=== PATIENT | female | born 1965 | race Two or more races ===

== ENCOUNTER 2016-05-11 17:16 | Inpatient (IN) | payer MEDICARE, MEDICAID ==
[2016-05-11] MEDS ORDERED: NS 0.9% 1000 ML* 2,000 ML IV ONE (17:29)
[2016-05-11] MEDS ORDERED: Ondansetron INJ* 2 MG/ML VIAL IV ONE (17:29)
--- NOTE | 2016-05-11 17:47 | RAD ---
INDICATION: Syncope COMPARISON: July 24, 2014 TECHNIQUE: An AP portable view obtained at 1730 hours is submitted. FINDINGS: Bones/Soft Tissues: There are no acute bony findings. Cardiomediastinal: The cardiomediastinal silhouette is normal. Lungs: There are no infiltrates. Pleura: There are no pleural effusions. Other: None IMPRESSION: NO ACTIVE DISEASE.
[2016-05-11 19:04] LABS: ALT 18 U/L (7-52); Albumin 3.4 g/dL (3.2-5.2); Alkaline Phosphatase 87 U/L (34-104); BUN/Creatinine Ratio 17.6 (8-20); Blood Urea Nitrogen 24 mg/dL (6-24); C Reactive Protein 280.57 mg/L (< 5.00); CO2 Carbon Dioxide 18 mmol/L (22-32); Calcium 8.5 mg/dL (8.6-10.3); Chloride 97 mmol/L (101-111); Creatine Kinase 82 U/L (10-223); EGFR African American 52.5 (>60); EGFR Non-African American 40.8 (>60); Globulin 3.7 g/dL (2-4); Glucose 134 mg/dL (70-100); Lipase < 10 U/L (11.0-82.0); Sodium 128 mmol/L (133-145); Total Protein 7.1 g/dL (6.4-8.9)
[2016-05-11 19:13] LABS: Hematocrit 40 % (35-47); Hemoglobin 12.8 g/dl (12.0-16.0); Mean Corpuscular HGB Conc 32 g/dl (31-36); Mean Corpuscular Hemoglobin 25 pg (27-31); Mean Corpuscular Volume 78 fL (80-97); Mean Platelet Volume 10 um3 (7.4-10.4); Red Cell Distribution Width 16 % (10.5-15); White Blood Count 19.1 10^3/ul (3.5-10.8)
[2016-05-11 19:16] LABS: Troponin I 0.46 ng/mL (<0.04)
[2016-05-11] MEDS ORDERED: Aspirin Low Dose CHEW TAB* 81 MG PO ONE (19:20)
[2016-05-11 19:27] LABS: Magnesium 1.9 mg/dL (1.9-2.7)
[2016-05-11 19:29] LABS: TSH (Thyroid Stimulating Horm) 3.29 mcIU/mL (0.34-5.60)
[2016-05-11] MEDS ORDERED: Ciprofloxacin 400MG IVPREMIX(* 400 MG/200 ML BAG IVPB ONE (19:53)
[2016-05-11] MEDS ORDERED: metroNIDAZOLE IV 500 MG/100ML* 500 MG/100 ML BAG IVPB ONE (19:53)
--- NOTE | 2016-05-11 19:58 | HP ---
H&P (Free Text) History and Physical: PCP: Leslie Helm MD Date/Time of Evaluation: 05/11/20161944 CC: N/V, dysuria, & urinary incontinence HPI: Mrs Gr is a 50YO female HX villanueva villanueva, CVA, & HTN presenting with malaise and fatigue starting either or Thursday and progressing to include N/V, watery diarrhea, subjective F/C, rigors, sweats, dysuria, frequency , urgency, & L-sided abdominal/flank pain. She denies cough, chest pain, SOB, HX urolithiasis, black/bloody stools, or other issues. Evaluation is notable for sepsis (tachycardia, leukocytosis, & ANGELLA) 2nd suspected urinary source (UA pending). Will obtain CT abd/pel W to r/o obstructive uropathy and arrange admission for IVFs, IV ABX, CXs, and close monitoring. CT reported as mild L renal obstructive findings. Case reviewed with Andrew Lane MD urology who after reviewing the films does not feel the patient needs a stent. He recommends admission and treatment for pyelonephritis and obtaining a renal and bladder US in the AM. He will not be formally consulted unless the US in the AM DOES NOT show a L ureteral jet or some other urologic concern. PMedHx HTN HX CVA villanueva villanueva HX heart murmur mild speech impediment mildly decreased cognitive function Allergies Azithromycin Allergy (Mild, Verified 03/25/16 11:41) Rash Celecoxib [From Celebrex] Allergy (Mild, Verified 03/25/16 11:41) Rash Ambulatory Orders Albuterol HFA INHALER* [Ventolin HFA Inhaler*] 2 puff INH Q4H PRN 07/24/14 Aspirin TAB* 325 mg PO DAILY 07/24/14 Cholecalciferol [Vitamin D3] 1,000 units PO DAILY 07/24/14 Cyanocobalamin TAB* [Vitamin B12 TAB*] 1,000 mcg PO DAILY 07/24/14 Losartan Potassium 100 mg PO DAILY 07/24/14 Probiotic Product [Align] 4 mg PO DAILY 07/24/14 Amlodipine Besylate 2.5 mg PO DAILY 05/11/16 Amlodipine Besylate [Norvasc-] 10 mg PO DAILY 05/11/16 Montelukast Sodium TAB* [Singulair 10 MG TAB*] 10 mg PO BEDTIME PRN 05/11/16 PSurgHx cerebral stenting done at [place] section x2 SocHx: former smoker w/ ~20PYHX, no alcohol or recreational drugs; , lives alone, 2 adult children live locally; on disability; full code status FamHx: Father passed in his 60s of CAD. Mother passed in her 60s of stomach CA. ROS: as above, otherwise reviewed and all were negative Constitutional: NAD, normally developed, morbidly obese white female vitals: Vital Signs Temp 37.6 C 05/11/16 17:17 Pulse 116 05/11/16 17:17 Resp 20 05/11/16 17:17 BP 115/56 05/11/16 17:17 Pulse Ox 97 05/11/16 17:17 Intake & Output 05/10/16 05/11/16 05/11/16 23:59 11:59 23:59 Weight 116.573 kg HEENM: atraumatic; sclera/conjunctiva: non-icteric/clear; hearing: clinically intact; oropharynx: clear, mucosa tacky Neck: soft tissue: no nuchal rigidity; thyroid: normal Pulmonary: scant end-inspiratory wheeze B, good to fair aeration, no accessory muscle use CV: TR/TR, normal S1S2, 2/6 decreshendo murmur best heard and inferior L sternal border, B carotid bruit, no jugular venous distention, 2+ B DP/PT, no edema Abdominal: soft, non-distended, mild to moderate L lateral abdominal tenderness , no rebound/guarding/rigidity, normoactive bowel sounds, no hepatosplenomegaly or masses, mild L costovertebral angle tenderness Musculoskeletal: general: grossly intact; gait: stable Integumental: normal appearance and texture Psychiatric orientation: AA&O to PPS affect: calm mood: cooperative eye contact: fair content: seemingly reliable responses: timely insight: fair Testing: Lab Results 05/11/16 05/11/16 05/11/16 Range/Units 18:30 18:38 18:57 WBC (3.5-10.8) 10^3/ul RBC (4.0-5.4) 10^6/ul Hgb (12.0-16.0) g/dl Hct (35-47) % MCV (80-97) fL MCH (27-31) pg MCHC (31-36) g/dl RDW (10.5-15) % Plt Count (150-450) 10^3/ul MPV (7.4-10.4) um3 Neut % (Auto) (38-83) % Lymph % (Auto) (25-47) % [place] % (Auto) (1-9) % Eos % (Auto) (0-6) % Baso % (Auto) (0-2) % Absolute Neuts (auto) (1.5-7.7) 10^3/ul Absolute Lymphs (auto) (1.0-4.8) 10^3/ul Absolute Monos (auto) (0-0.8) 10^3/ul Absolute Eos (auto) (0-0.6) 10^3/ul Absolute Basos (auto) (0-0.2) 10^3/ul Absolute Nucleated RBC 10^3/ul Nucleated RBC % INR (Anticoag Therapy) 1.25 H (0.89-1.11) Sodium 128 L (133-145) mmol/L Potassium TNP Chloride 97 L (101-111) mmol/L Carbon Dioxide 18 L (22-32) mmol/L Anion Gap TNP BUN 24 (6-24) mg/dL Creatinine 1.36 H (0.51-0.95) mg/dL Est GFR ( Amer) 52.5 (>60) Est GFR (Non-Af Amer) 40.8 (>60) BUN/Creatinine Ratio 17.6 (8-20) Glucose 134 H (70-100) mg/dL Lactic Acid (0.5-2.0) mmol/L Calcium 8.5 L (8.6-10.3) mg/dL Magnesium TNP Total Bilirubin 0.80 (0.2-1.0) mg/dL AST TNP ALT 18 (7-52) U/L Alkaline Phosphatase 87 (34-104) U/L Total Creatine Kinase 82 (10-223) U/L CK-MB (CK-2) 22.0 H (0.6-6.3) ng/mL Troponin I 0.46 H* (<0.04) ng/mL C-Reactive Protein 280.57 H (< 5.00) mg/L Total Protein 7.1 (6.4-8.9) g/dL Albumin 3.4 (3.2-5.2) g/dL Globulin 3.7 (2-4) g/dL Albumin/Globulin Ratio 0.9 L (1-3) Lipase < 10 L (11.0-82.0) U/L TSH 3.29 (0.34-5.60) mcIU/mL Influenza A (Rapid) Negative (Negative) Influenza B (Rapid) Negative (Negative) 05/11/16 05/11/16 05/11/16 Range/Units 18:57 18:57 18:57 WBC 19.1 H (3.5-10.8) 10^3/ul RBC 5.20 (4.0-5.4) 10^6/ul Hgb 12.8 (12.0-16.0) g/dl Hct 40 (35-47) % MCV 78 L (80-97) fL MCH 25 L (27-31) pg MCHC 32 (31-36) g/dl RDW 16 H (10.5-15) % Plt Count 212 (150-450) 10^3/ul MPV 10 (7.4-10.4) um3 Neut % (Auto) 88.2 H (38-83) % Lymph % (Auto) 6.1 L (25-47) % [place] % (Auto) 5.4 (1-9) % Eos % (Auto) 0 (0-6) % Baso % (Auto) 0.3 (0-2) % Absolute Neuts (auto) 16.8 H (1.5-7.7) 10^3/ul Absolute Lymphs (auto) 1.2 (1.0-4.8) 10^3/ul Absolute Monos (auto) 1.0 H (0-0.8) 10^3/ul Absolute Eos (auto) 0 (0-0.6) 10^3/ul Absolute Basos (auto) 0.1 (0-0.2) 10^3/ul Absolute Nucleated RBC 0.01 10^3/ul Nucleated RBC % 0.1 INR (Anticoag Therapy) (0.89-1.11) Sodium (133-145) mmol/L Potassium 3.3 L Chloride (101-111) mmol/L Carbon Dioxide (22-32) mmol/L Anion Gap BUN (6-24) mg/dL Creatinine (0.51-0.95) mg/dL Est GFR ( Amer) (>60) Est GFR (Non-Af Amer) (>60) BUN/Creatinine Ratio (8-20) Glucose (70-100) mg/dL Lactic Acid 1.6 (0.5-2.0) mmol/L Calcium (8.6-10.3) mg/dL Magnesium 1.9 Total Bilirubin (0.2-1.0) mg/dL AST 16 ALT (7-52) U/L Alkaline Phosphatase (34-104) U/L Total Creatine Kinase (10-223) U/L CK-MB (CK-2) (0.6-6.3) ng/mL Troponin I (<0.04) ng/mL C-Reactive Protein (< 5.00) mg/L Total Protein (6.4-8.9) g/dL Albumin (3.2-5.2) g/dL Globulin (2-4) g/dL Albumin/Globulin Ratio (1-3) Lipase (11.0-82.0) U/L TSH (0.34-5.60) mcIU/mL Influenza A (Rapid) (Negative) Influenza B (Rapid) (Negative) ECG, personally reviewed: sinus tachycardia rate 111, V4-6/I/II with ST depression & T-wave inversion similar to comparison 2014 CXR, personally reviewed: IMPRESSION: NO ACTIVE DISEASE. CT abd/pel W, personally reviewed: IMPRESSION: 1. Cholelithiasis, unchanged. No CT of acute cholecystitis. 2. Mild obstructive findings on the left without evidence of calcified urolithiasis. Consider radiolucent calculus or recent passage of a calculus. Consider pyelonephritis given the mildly heterogeneous nephrogram. These imaging findings require correlation with clinical and laboratory findings. 3. 3 cm left adnexal cyst, unchanged Impression: 50F presenting with sepsis likely 2nd urinary source (UA pending) DIAGNOSIS & PLAN Primary sepsis (tachycardia, leukocytosis, ANGELLA) 2nd L pyelonephritis : awaiting UA results : ciprofloxacin/metronidazole given in ED, none further : IV ceftriaxone : IVFs : blood & urine CXs : obtain CT abd/pel to r/o obstructive uropathy : call S Domingo MD in AM if renal & bladder US shows no L jet or other urologic concern : supplemental oxygen : supportive care NSTEMI, suspect 2nd demand ischemia : telemetry : aspirin : hold beta ney in setting of sepsis : trend troponin : supplemental oxygen : supportive care ANGELLA : likely mixed hypovolemia & ATN : taylor to gravity for accurate monitoring of renal function in septic patient : IVFs, trend hypoNatremia & hypoKalemia : IVFs for Na, replete K, trend : hold losartan in setting of ANGELLA end-expiratory wheeze w/ smoking HX, suspect undiagnosed COPD in mild exacerbation : albuterol nebs : mometasone/formoterol : tiotropium : incentive spirometry Secondary HTN : hold amlodipine & losartan in setting of sepsis HX CVA : continue aspirin villanueva villanueva : continue aspirin Admission Rational: inpatient for management of sepsis via IVFs & IV ABX, inappropriate/unsafe for outpatient management DVTp: SCDs, heparin SQ Code Status: full HCP: son, Gurinder Gr
[2016-05-11] MEDS ORDERED: Iodixanol* (CONTRAST) 320 MG/ML 100 ML SDV IV ONE (20:36)
[2016-05-11] MEDS ORDERED: Albuterol 2.5 MG/3 ML NEB.SOL* (0.083%) INH PRN (20:42)
[2016-05-11] MEDS ORDERED: CMCS Melatonin (NF) 3 MG TAB PO PRN (20:43)
[2016-05-11 20:44] LABS: Urine Bacteria Absent (Absent); Urine Bilirubin Negative (Negative); Urine Glucose Negative (Negative); Urine Nitrite Negative (Negative)
--- NOTE | 2016-05-11 21:14 | ED ---
Sonya Lee Michael, scribed for Raffi Gonzalez MD on 05/11/16 at 1735 . GI/ HPI - HPI Summary HPI Summary: 50 y/o female comes to the ED presenting with n/v/d for the past three days. 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 Her daughter was bedside and reports that the pt has had multiple vomiting and diarrhea episodes in the last 3 days. She also c/o epigastric abd pain that is aggravated by vomiting. The daughter notes the pt is febrile with chills, myalgia, and one syncopal episode this afternoon. Currently at the ED, the pt's temperature is 99.7. - History of Current Complaint Chief Complaint: EDNauseaVomitDiarrh Time Seen by Provider: 05/11/16 17:25 Stated Complaint: VOMITTING/POSS SNYCOPE/FEVER Hx Obtained From: Patient, Family/Manager Child, Medical Records Pain Intensity: 5 - Allergy/Home Medications Allergies/Adverse Reactions: Allergies Allergy/AdvReac Type Severity Reaction Status Date / Time Azithromycin Allergy Mild Rash Verified 03/25/16 11:41 Celecoxib [From Celebrex] Allergy Mild Rash Verified 03/25/16 11:41 PMH/Surg Hx/FS Hx/Imm Hx Endocrine/Hematology History: Denies: Hx Diabetes Cardiovascular History: Reports: Hx Angina, Hx Hypertension, Other Cardiovascular Problems/Disorders - hypertension Denies: Hx Congestive Heart Failure, Hx Pacemaker/ICD Respiratory History: Reports: Hx Asthma, Hx Chronic Obstructive Pulmonary Disease (COPD) History: Denies: Hx Renal Disease Sensory History: Reports: Hx Contacts or Glasses Denies: Hx Hearing Aid Opthamlomology History: Reports: Hx Contacts or Glasses Neurological History: 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 x2 Infectious Disease History: No Infectious Disease History: Denies: Traveled Outside the [place] in Last 30 Days - Family History Known Family History: Positive: Cardiac Disease - Social History Occupation: Disabled Lives: Alone Alcohol Use: Rare Substance Use Type: Reports: None Smoking Status (MU): Former Smoker Type: Cigarettes Have You Smoked in the Last Year: Yes Review of Systems Positive: Fever, Chills Positive: Abdominal Pain, Vomiting, Diarrhea, Nausea Positive: Myalgia Positive: Syncope All Other Systems Reviewed And Are Negative: Yes Physical Exam Triage Information Reviewed: Yes Vital Signs On Initial Exam: Initial Vitals Temp Pulse Resp BP Pulse Ox 99.7 F 116 20 115/56 97 05/11/16 17:17 05/11/16 17:17 05/11/16 17:17 05/11/16 17:17 05/11/16 17:17 Vital Signs Reviewed: Yes Appearance: Positive: No Pain Distress, Ill-Appearing - moderate Skin: Positive: Warm, Skin Color Reflects Adequate Perfusion, Dry Head/Face: Positive: Normal Head/Face Inspection Eyes: Positive: EOMI, JANET ENT: Positive: Other - dry oral mucosa Respiratory/Lung Sounds: Positive: Clear to Auscultation, Breath Sounds Present Cardiovascular: Positive: Tachycardia Abdomen Description: Positive: Soft. Negative: Nontender - tender epigastric Bowel Sounds: Positive: Present Musculoskeletal: Positive: Normal, Strength/ROM Intact Neurological: Positive: Normal, Sensory/Motor Intact, Alert, Oriented to Person Place, Time Psychiatric: Positive: Affect/Mood Appropriate Diagnostics - Vital Signs Vital Signs Temp Pulse Resp BP Pulse Ox 05/11/16 17:17 99.7 F 116 20 115/56 97 - Laboratory Lab Results: Lab Results 05/11/16 05/11/16 05/11/16 Range/Units 18:30 18:38 18:57 WBC (3.5-10.8) 10^3/ul RBC (4.0-5.4) 10^6/ul Hgb (12.0-16.0) g/dl Hct (35-47) % MCV (80-97) fL MCH (27-31) pg MCHC (31-36) g/dl RDW (10.5-15) % Plt Count (150-450) 10^3/ul MPV (7.4-10.4) um3 Neut % (Auto) (38-83) % Lymph % (Auto) (25-47) % [place] % (Auto) (1-9) % Eos % (Auto) (0-6) % Baso % (Auto) (0-2) % Absolute Neuts (auto) (1.5-7.7) 10^3/ul Absolute Lymphs (auto) (1.0-4.8) 10^3/ul Absolute Monos (auto) (0-0.8) 10^3/ul Absolute Eos (auto) (0-0.6) 10^3/ul Absolute Basos (auto) (0-0.2) 10^3/ul Absolute Nucleated RBC 10^3/ul Nucleated RBC % INR (Anticoag Therapy) 1.25 H (0.89-1.11) Sodium 128 L (133-145) mmol/L Potassium TNP Chloride 97 L (101-111) mmol/L Carbon Dioxide 18 L (22-32) mmol/L Anion Gap TNP BUN 24 (6-24) mg/dL Creatinine 1.36 H (0.51-0.95) mg/dL Est GFR ( Amer) 52.5 (>60) Est GFR (Non-Af Amer) 40.8 (>60) BUN/Creatinine Ratio 17.6 (8-20) Glucose 134 H (70-100) mg/dL Lactic Acid (0.5-2.0) mmol/L Calcium 8.5 L (8.6-10.3) mg/dL Magnesium TNP Total Bilirubin 0.80 (0.2-1.0) mg/dL AST TNP ALT 18 (7-52) U/L Alkaline Phosphatase 87 (34-104) U/L Total Creatine Kinase 82 (10-223) U/L CK-MB (CK-2) 22.0 H (0.6-6.3) ng/mL Troponin I 0.46 H* (<0.04) ng/mL C-Reactive Protein 280.57 H (< 5.00) mg/L Total Protein 7.1 (6.4-8.9) g/dL Albumin 3.4 (3.2-5.2) g/dL Globulin 3.7 (2-4) g/dL Albumin/Globulin Ratio 0.9 L (1-3) Lipase < 10 L (11.0-82.0) U/L TSH 3.29 (0.34-5.60) mcIU/mL Urine Color Urine Appearance Urine pH (5-9) Ur Specific [place] (1.010-1.030) Urine Protein (Negative) Urine Ketones (Negative) Urine Blood (Negative) Urine Nitrate (Negative) Urine Bilirubin (Negative) Urine Urobilinogen (Negative) Ur Leukocyte Esterase (Negative) Urine WBC (Auto) (Absent) Urine RBC (Auto) (Absent) Ur Squamous Epith Cells (Absent) Urine Bacteria (Absent) Urine Glucose (Negative) Influenza A (Rapid) Negative (Negative) Influenza B (Rapid) Negative (Negative) 05/11/16 05/11/16 05/11/16 Range/Units 18:57 18:57 18:57 WBC 19.1 H (3.5-10.8) 10^3/ul RBC 5.20 (4.0-5.4) 10^6/ul Hgb 12.8 (12.0-16.0) g/dl Hct 40 (35-47) % MCV 78 L (80-97) fL MCH 25 L (27-31) pg MCHC 32 (31-36) g/dl RDW 16 H (10.5-15) % Plt Count 212 (150-450) 10^3/ul MPV 10 (7.4-10.4) um3 Neut % (Auto) 88.2 H (38-83) % Lymph % (Auto) 6.1 L (25-47) % [place] % (Auto) 5.4 (1-9) % Eos % (Auto) 0 (0-6) % Baso % (Auto) 0.3 (0-2) % Absolute Neuts (auto) 16.8 H (1.5-7.7) 10^3/ul Absolute Lymphs (auto) 1.2 (1.0-4.8) 10^3/ul Absolute Monos (auto) 1.0 H (0-0.8) 10^3/ul Absolute Eos (auto) 0 (0-0.6) 10^3/ul Absolute Basos (auto) 0.1 (0-0.2) 10^3/ul Absolute Nucleated RBC 0.01 10^3/ul Nucleated RBC % 0.1 INR (Anticoag Therapy) (0.89-1.11) Sodium (133-145) mmol/L Potassium 3.3 L Chloride (101-111) mmol/L Carbon Dioxide (22-32) mmol/L Anion Gap BUN (6-24) mg/dL Creatinine (0.51-0.95) mg/dL Est GFR ( Amer) (>60) Est GFR (Non-Af Amer) (>60) BUN/Creatinine Ratio (8-20) Glucose (70-100) mg/dL Lactic Acid 1.6 (0.5-2.0) mmol/L Calcium (8.6-10.3) mg/dL Magnesium 1.9 Total Bilirubin (0.2-1.0) mg/dL AST 16 ALT (7-52) U/L Alkaline Phosphatase (34-104) U/L Total Creatine Kinase (10-223) U/L CK-MB (CK-2) (0.6-6.3) ng/mL Troponin I (<0.04) ng/mL C-Reactive Protein (< 5.00) mg/L Total Protein (6.4-8.9) g/dL Albumin (3.2-5.2) g/dL Globulin (2-4) g/dL Albumin/Globulin Ratio (1-3) Lipase (11.0-82.0) U/L TSH (0.34-5.60) mcIU/mL Urine Color Urine Appearance Urine pH (5-9) Ur Specific [place] (1.010-1.030) Urine Protein (Negative) Urine Ketones (Negative) Urine Blood (Negative) Urine Nitrate (Negative) Urine Bilirubin (Negative) Urine Urobilinogen (Negative) Ur Leukocyte Esterase (Negative) Urine WBC (Auto) (Absent) Urine RBC (Auto) (Absent) Ur Squamous Epith Cells (Absent) Urine Bacteria (Absent) Urine Glucose (Negative) Influenza A (Rapid) (Negative) Influenza B (Rapid) (Negative) 05/11/16 Range/Units 20:25 WBC (3.5-10.8) 10^3/ul RBC (4.0-5.4) 10^6/ul Hgb (12.0-16.0) g/dl Hct (35-47) % MCV (80-97) fL MCH (27-31) pg MCHC (31-36) g/dl RDW (10.5-15) % Plt Count (150-450) 10^3/ul MPV (7.4-10.4) um3 Neut % (Auto) (38-83) % Lymph % (Auto) (25-47) % [place] % (Auto) (1-9) % Eos % (Auto) (0-6) % Baso % (Auto) (0-2) % Absolute Neuts (auto) (1.5-7.7) 10^3/ul Absolute Lymphs (auto) (1.0-4.8) 10^3/ul Absolute Monos (auto) (0-0.8) 10^3/ul Absolute Eos (auto) (0-0.6) 10^3/ul Absolute Basos (auto) (0-0.2) 10^3/ul Absolute Nucleated RBC 10^3/ul Nucleated RBC % INR (Anticoag Therapy) (0.89-1.11) Sodium (133-145) mmol/L Potassium Chloride (101-111) mmol/L Carbon Dioxide (22-32) mmol/L Anion Gap BUN (6-24) mg/dL Creatinine (0.51-0.95) mg/dL Est GFR ( Amer) (>60) Est GFR (Non-Af Amer) (>60) BUN/Creatinine Ratio (8-20) Glucose (70-100) mg/dL Lactic Acid (0.5-2.0) mmol/L Calcium (8.6-10.3) mg/dL Magnesium Total Bilirubin (0.2-1.0) mg/dL AST ALT (7-52) U/L Alkaline Phosphatase (34-104) U/L Total Creatine Kinase (10-223) U/L CK-MB (CK-2) (0.6-6.3) ng/mL Troponin I (<0.04) ng/mL C-Reactive Protein (< 5.00) mg/L Total Protein (6.4-8.9) g/dL Albumin (3.2-5.2) g/dL Globulin (2-4) g/dL Albumin/Globulin Ratio (1-3) Lipase (11.0-82.0) U/L TSH (0.34-5.60) mcIU/mL Urine Color Yesy Urine Appearance Cloudy Urine pH 5.0 (5-9) Ur Specific [place] 1.016 (1.010-1.030) Urine Protein 2+(100 mg/dl) H (Negative) Urine Ketones Negative (Negative) Urine Blood 2+ H (Negative) Urine Nitrate Negative (Negative) Urine Bilirubin Negative (Negative) Urine Urobilinogen Negative (Negative) Ur Leukocyte Esterase 3+ H (Negative) Urine WBC (Auto) 3+(>20/hpf) H (Absent) Urine RBC (Auto) 2+(6-10/hpf) H (Absent) Ur Squamous Epith Cells Present H (Absent) Urine Bacteria Absent (Absent) Urine Glucose Negative (Negative) Influenza A (Rapid) (Negative) Influenza B (Rapid) (Negative) Result Diagrams: 05/11/16 18:57 05/11/16 18:57 Lab Statement: Any lab studies that have been ordered have been reviewed, and results considered in the medical decision making process. - Radiology CXR Xray Interpretation: No Acute Changes Radiology Interpretation Completed By: Radiologist - EKG EK EKG Rhythm: Sinus Tachycardia - 111 bpm EKG Interpretation: LVH w/ secondary repolarization abnormality. depression in St lateral leads EKG Comparison: No Significant Change - compared to 07/25/14 GIGU Course/Dx - Course Course Of Treatment: Pt will be admitted to [facility]. Welch at 1915 Assessment/Plan: ABD CT PENDING AT SHIFT CHANGE. CIPRO/FLAGYL GIVEN IV. ADMIT HOSPITALIST STABLE. - Diagnoses Provider Diagnoses: UTI (urinary tract infection), Abdominal pain, Elevated troponin, Vomiting and diarrhea Discharge - Discharge Plan Condition: Stable Disposition: ADMITTED TO [facility] Discharge Disposition Comment: accepted as admission to [facility] [place] Welch Referrals: Jeri Helm MD [Primary Care Provider] - The documentation as recorded by the Sonya suarez Michael accurately reflects the service I personally performed and the decisions made by me, Raffi Gonzalez MD.
[2016-05-11] MEDS ORDERED: Montelukast Sodium TAB* 10 MG PO PRN (21:22)
--- NOTE | 2016-05-11 22:24 | RAD ---
INDICATION: Abdominal pain COMPARISON: CT abdomen pelvis June 24, 2011 TECHNIQUE: Axial source images were obtained from the hemidiaphragms to the symphysis pubis following administration of oral and intravenous contrast. 135 mL Visipaque 320 was utilized. Coronal and sagittal reconstructed images were acquired. Lung bases: The lung bases are clear. Liver: The liver is normal in size. There are no masses. There is no ductal dilatation. Gallbladder: There is cholelithiasis. Spleen: The spleen is normal in size. There are no masses. Pancreas: There is no focal pancreatic mass or ductal dilatation. Adrenal glands: There is no evidence of adrenal mass. Kidneys: The right kidney is unremarkable. There is a mildly delayed nephrogram on the left and there is mild hydronephrosis and hydroureter. The nephrogram appears mildly heterogeneous and there is mild left-sided perinephric stranding. There is no evidence of urolithiasis. Adenopathy: There is no evidence of adenopathy by size criteria. Fluid collections: There are no free or localized fluid collections. Vessels:There are no significant atherosclerotic changes involving the aorta. There is no focal aneurysm. The iliac vessels are normal in caliber. The IVC appears normal. GI tract: There are no acute CT bowel findings. There is no obstruction. The stomach and small bowel appear normal. The lower GI tract is normal. The cecum, ileocecal valve, and terminal ileum appear normal. The appendix is visualized and appear normal. Pelvic organs: The uterus and right adnexa are normal. There is a 3 cm left adnexal cyst, unchanged Bladder: There are no bladder masses. Abdominal and pelvic soft tissues: The extraperitoneal abdominal and pelvic soft tissues appear normal.. Osseous structures: There are no acute osseous findings. Other: None IMPRESSION: 1. Cholelithiasis, unchanged. No CT of acute cholecystitis. 2. Mild obstructive findings on the left without evidence of calcified urolithiasis. Consider radiolucent calculus or recent passage of a calculus. Consider pyelonephritis given the mildly heterogeneous nephrogram. These imaging findings require correlation with clinical and laboratory findings. 3. 3 cm left adnexal cyst, unchanged
[2016-05-11] MEDS: Docusate CAP* 100 MG PO SCH (22:59)
[2016-05-12] MEDS ORDERED: Acetaminophen TAB* 325 MG ONE (00:52)
[2016-05-12] MEDS ORDERED: Ondansetron INJ* 2 MG/ML VIAL ONE (00:58)
[2016-05-12] MEDS ORDERED: cefTRIAXone VIAL(*) 1,000 MG in NS 0.9% 50 ML* 50 ML IVPB SCH (01:00)
[2016-05-12] MEDS: NS 0.9% 1000 ML* 1,000 ML IV SCH ×3 (01:24→21:58)
[2016-05-12] MEDS: traMADol TAB* 50 MG PO PRN ×3 (02:06→21:01)
[2016-05-12 02:13] LABS: Troponin I 0.39 ng/mL (<0.04)
[2016-05-12] MEDS: Heparin VIAL(*) 5000 UNITS/ML VIAL (FIVE THOUSAND) SUBCUT SCH ×3 (05:45→21:57)
[2016-05-12] MEDS ORDERED: Omeprazole CAP* 20 MG PO SCH (06:00)
[2016-05-12 06:41] LABS: Troponin I 0.25 ng/mL (<0.04)
[2016-05-12 08:23] LABS: Hematocrit 33 % (35-47); Hemoglobin 10.7 g/dl (12.0-16.0); Mean Corpuscular HGB Conc 32 g/dl (31-36); Mean Corpuscular Hemoglobin 25 pg (27-31); Mean Corpuscular Volume 78 fL (80-97); Mean Platelet Volume 11 um3 (7.4-10.4); Red Blood Count 4.25 10^6/ul (4.0-5.4); Red Cell Distribution Width 16 % (10.5-15); White Blood Count 18.1 10^3/ul (3.5-10.8)
[2016-05-12 08:32] LABS: BUN/Creatinine Ratio 18.4 (8-20); Calcium 8.1 mg/dL (8.6-10.3); EGFR African American 50.4 (>60); EGFR Non-African American 39.2 (>60); Potassium 3.3 mmol/L (3.5-5.0)
[2016-05-12] MEDS: Docusate CAP* 100 MG PO SCH ×2 (08:39→20:12)
[2016-05-12] MEDS: Aspirin TAB* 325 MG PO SCH (08:46)
[2016-05-12] MEDS: metroNIDAZOLE TAB* 250 MG PO SCH ×3 (09:58→20:50)
--- NOTE | 2016-05-12 13:06 | RAD ---
Indication: Left pyelonephritis versus left obstruction. Real-time sonography of the kidneys was performed. Evaluation of the urinary bladder was also performed. Correlation is made with previous CT dated May 11, 2016. The right kidney measures 12.9 x 5.5 x 5.6 cm with no hydronephrosis. The left kidney measures 13.8 x 6.7 x 6.5 cm. There is fullness of the left renal collecting system. Evaluation of the urinary bladder demonstrates bilateral ureteral jets. IMPRESSION: Bilateral ureteral jets are identified. The left kidney appears to be enlarged relative to the right.
--- NOTE | 2016-05-12 14:22 | PN ---
Subjective Date of Service: 05/12/16 Interval History: HOSPITALIST PROGRESS NOTE Patient seen and examined at bedside. She feels a little better today. Left flank pain is improved, denies N/V, diarrhea still present. Family History: Unchanged from Admission Social History: Unchanged from Admission Past Medical History: Unchanged from Admission Objective Active Medications: Acetaminophen (Tylenol Tab*) 650 mg PO Q6H PRN PRN Reason: FEVER/PAIN Albuterol (Ventolin 2.5 Mg/3 Ml Neb.Kayy*) 2.5 mg INH Q2H PRN PRN Reason: SOB/WHEEZING Aspirin (Aspirin Tab*) 325 mg PO DAILY [facility] Last Admin: 05/12/16 08:46 Dose: 325 mg Docusate Sodium (Colace Cap*) 200 mg PO BID [facility] Last Admin: 05/12/16 08:39 Dose: Not Given Heparin Sodium (Porcine) (Heparin Vial(*)) 5,000 units SUBCUT Q8HR [facility] Last Admin: 05/12/16 14:02 Dose: 5,000 units Sodium Chloride (Ns 0.9% 1000 Ml*) 1,000 mls @ 125 mls/hr IV PER RATE [facility] Last Admin: 05/12/16 10:00 Dose: 125 mls/hr Ceftriaxone Sodium 2 gm/ (Sodium Chloride) 100 mls @ 200 mls/hr IVPB Q24H [facility] Last Admin: 05/12/16 14:02 Dose: 200 mls/hr Melatonin (Melatonin (Nf)) 3 mg PO BEDTIME PRN; Protocol PRN Reason: Sleep Metronidazole (Flagyl Tab*) 500 mg PO TID [facility] Last Admin: 05/12/16 14:02 Dose: 500 mg Montelukast Sodium (Singulair Tab*) 10 mg PO BEDTIME PRN PRN Reason: Allergy Symptoms Ondansetron HCl (Zofran Inj*) 4 mg IV Q6H PRN PRN Reason: NAUSEA Tramadol HCl (Ultram*) 50 mg PO Q6H PRN PRN Reason: PAIN Last Admin: 05/12/16 08:46 Dose: 50 mg Vital Signs 05/12/16 05/12/16 05/12/16 08:46 10:46 11:19 Temperature 98.6 F Pulse Rate 94 Respiratory 18 18 20 Rate Blood Pressure 109/57 (mmHg) O2 Sat by Pulse 97 Oximetry Oxygen Devices in Use Now: Nasal Cannula Appearance: Obese middle aged lady lying in bed in NAD. Eyes: No Scleral Icterus Ears/Nose/Mouth/Throat: Mucous Membranes Moist Neck: Trachea Midline Respiratory: Symmetrical Chest Expansion and Respiratory Effort, Clear to Auscultation Cardiovascular: RRR - Normal S1 and S2, +SM Abdominal: - - Obese, soft, NT, BS+ Extremities: No Edema Neurological: Alert and Oriented x 3, - - dysarthria, Lines/Tubes/Other Access: Clean, Dry and Intact Zimmer, Clean, Dry and Intact Peripheral IV Nutrition: Taking PO's Result Diagrams: 05/12/16 05:39 05/12/16 05:39 Assess/Plan/Problems-Billing Assessment: Mrs. De Oliveira is a 50yo F with PMH of HTN, CVA, Moyamoya disease, dysarthria, who presented to ED with c/o N/V/D/and dysuria, found to have sepsis secondary to pyelonephritis and possible C. diff colitis. - Patient Problems (1) Severe sepsis Comment: - Patient met sepsis criteria on admission with fever, tachycardia, tachypnea, and leukocytosis. - qSOFA was 1 on admission (tachypnea). - Source is pyelonephritis. (2) Pyelonephritis Comment: - CT reviewed. - Presentation compatible with left pyelo. - Urine culture growing E. coli. - ID consult requested. - Continue Ceftriaxone. - Renal US showed a left ureteral jet, so no indication for stents at this time. (3) Gram negative septicemia Comment: - Blood cultures growing gram negative bacilli, probably E. coli. - Follow sensitivities and continue Ceftriaxone. - Repeat blood cultures in AM. (4) ANGELLA (acute kidney injury) Comment: - Likely pre-renal in the setting of N/V/D and ATN in the setting of severe sepsis. - Continue IVF and monitor renal function. (5) Diarrhea Comment: - Patient was treated with antibiotics 2 weeks ago for sinus infection and developed explosive diarrhea, suggestive of C. diff. - Start Metronidazole. - Contact precautions. - Stool for C. diff. (6) Elevated troponin Comment: - Suspect demand ischemia in the setting of severe sepsis. - Troponin is trending down. - Patient denies chest pain or pressure. - Cardiology consult requested. - Check echocardiogram. - Continue Aspirin. (7) Hyponatremia Comment: - Trending up. - Continue IVF. (8) Hypokalemia Comment: - Replete. (9) DVT prophylaxis Comment: - SQ heparin. (10) Full code status Status and Disposition: Inpatient. Daughter updated at bedside.
[2016-05-12] MEDS: KCL 10 MEQ/50 ML IVPREMIX* 10 MEQ/50 ML BAG IV SCH ×3 (15:29→20:49)
--- NOTE | 2016-05-12 16:54 | ECHO ---
Patient: NOÉ GROSSMAN [facility] Rec#: [id number] : 1965 Date: 05/12/2016 Age: 50y Height: 157.5 cm / 62.0 in Weight: 120.7 kg / 266.0 lbs Sex: F BSA: 2.16 Room#: [facility] Admit Date#: 05/11/2016 Type: Inpatient Referring: Justyna Bernal MD Reading: Timothy Prince MD Bank Teller: Dee Dee Mccloud RN RDCS CC: Jeri Helm MD Transthoracic Echocardiogram Indication: Elevated troponins, cardiac murmur BP: 122/62 HR: 91 Rhythm: NSR Findings History: HTN, CVA, COPD, former smoker, moyamoya disease Technical Comments: The study is technically limited due to patient body habitus. The study is technically limited due to the patient's history of COPD. The study is technically limited due to the patient's smoking history. Completed at 1630. Left Ventricle: The left ventricular chamber size is normal. Moderate concentric left ventricular hypertrophy is observed. Left ventricular systolic function is at the lower limits of normal. The estimated ejection fraction is 50-55%. There is no consistent Doppler evidence of clinically significant diastolic dysfunction. Left Atrium: The left atrial chamber size is normal. Right Ventricle: The right ventricle is not well visualized. The right ventricular cavity size is normal. The right ventricular global systolic function is mildly reduced. Right Atrium: The right atrial cavity size is normal. Aortic Valve: The aortic valve leaflets are mildly thickened. Systolic excursion of the aortic valve cusps is reduced. There is mild to moderate aortic regurgitation. There is moderate aortic stenosis. The mean gradient of the aortic valve is 27.4 mmHg. The aortic valve area, by peak velocities, is calculated at 1.2 cm2. The aortic valve area, by VTI's, is calculated at 1.3 cm2. Highest aortic valve velocity was acquired with Pedoff in right sternal border position. The measured aortic regurgitation pressure half-time is 370 msec. Mitral Valve: There is mitral annular calcification. The mitral valve leaflets are mildly thickened. There is mild to moderate mitral regurgitation. There is no evidence of mitral stenosis. Tricuspid Valve: The tricuspid valve structure is not well visualized. Pulmonic Valve: The pulmonic valve appears normal. There is mild pulmonic regurgitation. There is no pulmonic stenosis. Pericardium: There is no significant pericardial effusion. A pericardial fat pad is visualized. Aorta: There is no dilatation of the ascending aorta. There is no dilatation of the aortic arch. The aortic root is normal in size. Pulmonary Artery: The main pulmonary artery is not well visualized. Venous: The venous system is not well visualized. The inferior vena cava is not visualized. Conclusions Moderate concentric left ventricular hypertrophy is observed. Left ventricular systolic function is at the lower limits of normal. The estimated ejection fraction is 50-55%. There is no consistent Doppler evidence of clinically significant diastolic dysfunction. The right ventricular global systolic function is mildly reduced. Systolic excursion of the aortic valve cusps is reduced. There is moderate aortic stenosis. The mean gradient of the aortic valve is 27.4 mmHg. The mitral valve leaflets are mildly thickened. There is mild to moderate mitral regurgitation. The tricuspid valve structure is not well visualized. There is no significant pericardial effusion. Compared to study of 07/25/14, the LV frunction is slightly lower. The aortic stenosis was previously mild and is now moderate Measurements Name Value Normal Range IVSd (2D) 1.5 cm (0.6 - 1) LVPWd (2D) 1.5 cm (0.6 - 1) LVIDd (2D) 4.2 cm (3.6 - 5.4) LVIDs (2D) 3.3 cm - LV FS (2D) 22 % (25 - 45) Aortic Annulus 2 cm (1.4 - 2.6) Ao root diameter (2D) 2.3 cm (2.1 - 3.5) Ascending Ao 2.8 cm (2.1 - 3.4) Aortic arch 2.6 cm (1.8 - 3.4) LA dimension (AP) 2D 3.3 cm (2.3 - 3.8) Name Value Normal Range LA ESV SP 4CH (A/L) 28 ml - LA ESV SP 2CH (A/L) 52 ml - LA ESV BP (A/L) 40 ml - LA ESV BP (A/L) index 18.5 ml/m2 - LA ESV SP 4CH (MOD) 28 ml - LA ESV SP 2CH (MOD) 50 ml - Name Value Normal Range MV E-wave Vmax 1.5 m/sec - MV deceleration time 237 msec - MV A-wave Vmax 1.2 m/sec - MV E:A ratio 1.3 ratio - LV septal e' Vmax 0.05 m/sec - LV lateral e' Vmax 0.07 m/sec - LV E:e' septal ratio 30 ratio - LV E:e' lateral ratio 21.4 ratio - Name Value Normal Range AV Vmax 3.5 m/sec - AV VTI 62.7 cm - AV peak gradient 49.3 mmHg - AV mean gradient 27.4 mmHg - LVOT diameter 2 cm - LVOT Vmax 1.3 m/sec - LVOT VTI 26.4 cm - LVOT peak gradient 6.9 mmHg - LVOT mean gradient 4.4 mmHg - DOI (VTI) 0.42 ratio - SLOAN (continuity Vmax) 1.2 cm2 - SLOAN (continuity VTI) 1.3 cm2 - AR PHT 370 msec - Name Value Normal Range MV Vmax 1.7 m/sec - MV VTI 37.8 cm - MV peak gradient 12.2 mmHg - MV mean gradient 5.5 mmHg - MV PHT 69 msec - MVA (PHT) 3.2 cm2 - MVA (continuity VTI) 2.2 cm2 - Name Value Normal Range PV Vmax 1.2 m/sec -
[2016-05-12] MEDS: Ondansetron INJ* 2 MG/ML VIAL IV PRN (17:46)
--- NOTE | 2016-05-12 18:53 | CONS ---
CONSULTATION REPORT: DATE OF CONSULTATION: 05/12/16 REQUESTING PHYSICIAN: Dr. Tenorio. CONSULTING SERVICE: Infectious Disease. REASON FOR CONSULTATION: Bacteremia and flank pain. IMPRESSION: 1. Left flank pain, dysuria. Urinalysis shows blood, leukocyte esterase. CT shows mild obstructive findings of the left ureter without urolithiasis. Differential includes radiolucent calculus or a recent stone passage, which she does not remember passing any stones and then mild heterogeneous nephrogram. Her blood cultures 2/2 bottles with gram-negative bacilli. Overall, I do agree pyelonephritis is likely with possible stone disease. 2. Diarrhea and was on antibiotics 2 weeks ago. Her diarrhea is explosive, cannot make it to the toilet a few times a day. It preceded her fever and left flank and urinary symptoms. I think she likely has C. difficile associated diarrhea, which was community acquired. 3. Positive troponin. Abnormal EKG. 4. Allergy to AZITHROMYCIN. 5. Obesity. 5. Chronic right decubitus ulcer. RECOMMENDATIONS: 1. Agree with ceftriaxone. We will increase to 2 g a day given her weight of 265 pounds and await the blood culture results. She has a kidney ultrasound pending for today. 2. Start Flagyl 500 mg by mouth 3 times a day and add a C. diff PCR. HISTORY OF PRESENT ILLNESS: This is a 50-year-old woman admitted with fever and left flank pain. About 5 days ago, she had the onset of abdominal cramping and 4 to 7 explosive stools a day that she had a hard time making to the toilet. She was on antibiotics 2 weeks prior for sinusitis. A day and a half after her diarrhea started, she developed dysuria, urinary frequency, left flank pain and then fever and shaking chills. She came to the hospital on , white blood cell count 19,000. She had a dose of Cipro and Flagyl. CT results as above. She was changed to ceftriaxone overnight as she had a temperature of 39.1. She had shaking chills and slept last night. This morning , she has chills. She has ongoing left flank and left upper quadrant pain that is worse with movement. Pain medicine has helped. Blood cultures are positive for gram-negative rods. She has a Zimmer catheter that is producing urine. She has not had infections requiring hospitalization in the past. She has had 3 explosive stools this morning. Specimen was just sent for testing. PAST MEDICAL HISTORY: 1. Obesity. 2. Moyamoya. 3. 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 4. History of heart murmur. 5. History of stroke. MEDICATIONS: 1. Tylenol. 2. Albuterol. 3. Aspirin. 4. Docusate. 5. Heparin subcutaneous injection. 6. Melatonin. 7. Singulair. 8. Ceftriaxone 1 g a day. 9. Tramadol. ALLERGIES: 1. AZITHROMYCIN caused rash. 2. CELEBREX caused rash. FAMILY HISTORY: No recurrent infections. SOCIAL HISTORY: She lives in [place]. No sick contacts. No travel. REVIEW OF SYSTEMS: All negative except as noted above. PHYSICAL EXAM: Vital Signs: Temperature is 37, heart rate 80, respiratory rate 20, blood pressure 120/60, and O2 sat 99% on room air. In general: She is awake, not in distress. Neurological: She is oriented x3, follows all commands, moves all extremities. Cranial nerves II through XII are intact. Neck: Neck is supple without nuchal rigidity. HEENT: There is no conjunctival hemorrhage. Oropharynx is dry. There are no lesions. Lymph nodes : There is no palpable or visible lymphadenopathy. Heart: Regular rate and rhythm without murmurs, rubs, or gallops. Lungs: Clear to auscultation bilaterally. Abdomen: Obese. There is left flank tenderness. There is no suprapubic tenderness. There is no rebound. No bowel sounds present. Skin: There is no rash or splinter hemorrhages. Musculoskeletal: There is no spine tenderness to palpation or joint synovitis. DIAGNOSTIC STUDIES/LAB DATA: Creatinine 1.4, troponin 0.25, white blood cell count 18, hemoglobin 10, and platelets 155. Influenza PCR negative. Please see impression and recommendations outlined above. Thanks for asking me to see Ms. Gr in consultation. [id number]/[facility] #: [id number] HYACINTH
[2016-05-12] MEDS ORDERED: KCL 10 MEQ/50 ML IVPREMIX* 10 MEQ/50 ML BAG ONE (20:08)
--- NOTE | 2016-05-12 21:31 | CONS ---
CARDIOLOGY CONSULT NOTE: DATE OF CONSULT: 05/12/16 FAMILY DOCTOR: Jeri Helm MD REASON FOR CONSULT: Asked by the hospitalist service to see the patient with mildly abnormal cardiac enzymes with a total troponin of 0.46 and MB fraction of 22, a total CPK of 82, with trailing off troponins of 0.39 and then 0.25 with an abnormal EKG. HISTORY OF PRESENT ILLNESS: The patient is a 50-year-old female who has a known history of Moyamoya disease, status post a CVA 10 years ago with a speech impediment, and a history of hypertension. She was in her usual state of health until a couple of days prior to admission when she started feeling malaise and fatigue and developed watery diarrhea of significant nature, nausea , vomiting, rigors, and sweats. She also had dysuria, frequency, and urgency, and she had a left upper abdominal flank discomfort. At no point, it should be noted that she did have any chest, throat, jaw, or arm discomfort or shortness of breath. There is no radiation to the arms. She reportedly on the CT scan had a question of a mild left renal obstruction and there was question of whether or not a stent was needed, but this apparently was reviewed with Dr. Lane and he felt that this was not needed. The patient was admitted for further evaluation. Over the course of the hospitalization, the initial troponin was found to be 0.46 with a total CPK of 82 and an MB of 22. Following troponins were 0.39 and 0.25 in followup. Renal function showed an initial BUN and creatinine of 24 and 1.36, repeat at 26 and 1.4. Because of the abnormal cardiac enzymes, we were asked to see her. The patient's cardiac history dates back to an echocardiogram at [facility] back on 12/31/04 for a history of a murmur. At that point in time, all of her valves were felt to be grossly normal. There was mild aortic insufficiency and mild mitral insufficiency. There was preserved right and left ventricular systolic function. It was not optimal due to the patient's significant obesity. The patient then back in 2014 was noted to have an abnormal EKG with LVH strain pattern compared to 2009 and with that EKG, she had an echocardiogram done which reportedly revealed a somewhat technically limited study due to significant obesity and COPD. There was moderate concentric LVH and ejection fraction in excess of 65%. There was impaired relaxation noted. There was trace tricuspid regurgitation, mild aortic regurgitation, [id number] mitral regurgitation. During that hospitalization, she also underwent a Lexiscan stress test which revealed a baseline abnormal EKG , uninterpretable for ischemia. The nuclear images showed an ejection fraction of 60% with stress. There was a question of small perfusion defect to the lateral wall of the left ventricle. It was felt to be a low-risk stress test. Since that time to now when she has been up and about doing things, she is able to do exertional activity without provoking chest, throat, jaw, or arm discomfort. The biggest thing that she did notice with this episode of the diarrhea, the nausea and vomiting was when she got up, she became so lightheaded that she thinks she passed out. She has not had any further symptoms like that since being in the hospital. PAST MEDICAL HISTORY: Includes a history of Moyamoya syndrome. She has a history of a heart murmur, history of a CVA that she states was 10 years ago, history of hypertension, and she states she also has a history of asthma. PAST SURGICAL HISTORY: Includes cerebral stenting done at [place]. Of note, with her Moyamoya syndrome, she is followed by a Dr. Munoz in [facility] in [place], [place]. MEDICATIONS: Her home medications have included: 1. Albuterol inhaler. 2. Aspirin 325. 3. Cholecalciferol. 4. Cyanocobalamin. 5. Losartan 100 mg a day. 6. Amlodipine, a total of 12.5 mg a day. 7. Singulair 10 mg a day. 8. Probiotic. FAMILY HISTORY: Father in the 60s of a heart attack. Mother at 60 of stomach cancer. SOCIAL HISTORY: She used to smoke, but does not any more. She does not abuse alcohol or recreational drugs. She lives alone and has 2 adult children. She is on disability. REVIEW OF SYSTEMS: As per the H and P with no changes. PHYSICAL EXAM: When I saw her reveals a pleasant, well-developed, obese female in no acute distress. Blood pressure 109/57, pulse is 85, respirations 20, O2 saturation 97% on room air, afebrile. Body mass index 48.7. Neck is supple. There is a question of bruit versus transmitted murmur with her in a lying position. Conjunctivae are minimally pale. Sclerae clear. Lungs reveal no accessory muscle usage. Lungs are relatively clear to A and P. Heart reveals no visible heaves, no palpable heaves or thrills. Normal S1. S2 does seem to split physiologically. There is a 2/6 systolic murmur with her lying flat. Abdomen is morbidly obese. There is mild tenderness in the upper left lateral abdominal area. Extremities are heavy in nature bilaterally. Peripheral pulses are intact. Femoral pulses are difficult to appreciate at best given her morbid obesity. Neuro: The patient speaks with a speech impediment, seems to move all extremities appropriately. Psychological: The patient seems of normal affect. DIAGNOSTIC STUDIES/LAB DATA: Laboratory results to date: From today, 05/12/16 , shows sodium 137, potassium 3.3, chloride 99, bicarb 22, BUN and creatinine of 26 and 1.41, glucose 119. Of note, added on tests that I asked for included a total CPK and an MB on the second and third troponin samples of 0.39 and 0.25 respectively. Those values were a total CPK of 76 and an MB of 5.4 and a total CPK of 74 and an MB of 3.6. Lipase is less than 10. Hemoglobin and hematocrit today were 10.7 and 33 with a platelet count of 155,000. White count 18,100. INR was 1.25. Chest x-ray report reveals no active disease. EKG on admission dated 05/11/16, timed 184, revealed sinus tachycardia, heart rate 111, CA interval is 0.13, QRS is 0.09, QT 0.32, axis is +7 degrees. There are suggestive findings of left ventricular hypertrophy with possible strain pattern in the limb leads. There is a hockey-stick configuration with downsloping ST segments in I, aVL, and V5 and V6. Repeat EKG from today, dated 05/12/16, timed 7:25 a.m., reveals a slower rate with less ST-segment changes suggesting the prior ones may have been even rate related. OVERALL ASSESSMENT: Yenni presents now with no clear symptoms of coronary artery ischemia with an abnormal EKG that was present back when a workup revealed no profound ischemia and with a systemic illness process going on. At this point in time, an echocardiogram was ordered and we will await the results of the echocardiogram to look at wall motion. If wall motion is normal and no focal wall motion abnormalities, I would figure that this is more likely a type 2 myocardial infarction from a demand-produced ischemic event rather than any type of ruptured plaque from coronary artery disease. If her LV function is completely normal and if there is significant left ventricular hypertrophy, consideration for low-dose beta ney may be reasonable. I will leave that to your discretion. As always, thank you very much for having us to see her. We will follow her along with you. cc: Dr. Jeri Helm* [id number]/[facility] #: [id number] MTDD
[2016-05-13] MEDS: Acetaminophen TAB* 325 MG PO PRN ×2 (00:57→21:08)
[2016-05-13] MEDS: NS 0.9% 1000 ML* 1,000 ML IV SCH ×2 (04:34→13:02)
[2016-05-13] MEDS: Heparin VIAL(*) 5000 UNITS/ML VIAL (FIVE THOUSAND) SUBCUT SCH ×3 (05:21→21:09)
[2016-05-13 05:26] LABS: Hematocrit 32 % (35-47); Hemoglobin 10.4 g/dl (12.0-16.0); Mean Corpuscular HGB Conc 32 g/dl (31-36); Mean Corpuscular Hemoglobin 25 pg (27-31); Mean Corpuscular Volume 78 fL (80-97); Mean Platelet Volume 10 um3 (7.4-10.4); Red Blood Count 4.16 10^6/ul (4.0-5.4); Red Cell Distribution Width 16 % (10.5-15); White Blood Count 10.3 10^3/ul (3.5-10.8)
[2016-05-13 05:42] LABS: BUN/Creatinine Ratio 17.1 (8-20); C Reactive Protein 264.44 mg/L (< 5.00); EGFR Non-African American 45.9 (>60); Potassium 3.5 mmol/L (3.5-5.0)
[2016-05-13] MEDS: Docusate CAP* 100 MG PO SCH (07:26)
[2016-05-13] MEDS: Aspirin TAB* 325 MG PO SCH (07:58)
[2016-05-13] MEDS: metroNIDAZOLE TAB* 250 MG PO SCH ×2 (07:59→13:02)
--- NOTE | 2016-05-13 13:39 | PN ---
Subjective Date of Service: 05/13/16 Interval History: Pt is feeling poorly. She denies any pain at this time but she states her L flank pain worsens as the day goes on. She continues to have profuse diarrhea. She can not even tell me how many stools she had today. Objective Active Medications: Acetaminophen (Tylenol Tab*) 650 mg PO Q6H PRN PRN Reason: FEVER/PAIN Last Admin: 05/13/16 00:57 Dose: 650 mg Albuterol (Ventolin 2.5 Mg/3 Ml Neb.Kayy*) 2.5 mg INH Q2H PRN PRN Reason: SOB/WHEEZING Aspirin (Aspirin Tab*) 325 mg PO DAILY [facility] Last Admin: 05/13/16 07:58 Dose: 325 mg Docusate Sodium (Colace Cap*) 200 mg PO BID [facility] Last Admin: 05/13/16 07:26 Dose: Not Given Heparin Sodium (Porcine) (Heparin Vial(*)) 5,000 units SUBCUT Q8HR [facility] Last Admin: 05/13/16 13:03 Dose: 5,000 units Sodium Chloride (Ns 0.9% 1000 Ml*) 1,000 mls @ 125 mls/hr IV PER RATE [facility] Last Admin: 05/13/16 13:02 Dose: 125 mls/hr Ceftriaxone Sodium 2 gm/ (Sodium Chloride) 100 mls @ 200 mls/hr IVPB Q24H [facility] Last Admin: 05/13/16 13:02 Dose: 200 mls/hr Melatonin (Melatonin (Nf)) 3 mg PO BEDTIME PRN; Protocol PRN Reason: Sleep Last Admin: 05/12/16 21:57 Dose: 3 mg Metronidazole (Flagyl Tab*) 500 mg PO TID [facility] Last Admin: 05/13/16 13:02 Dose: 500 mg Montelukast Sodium (Singulair Tab*) 10 mg PO BEDTIME PRN PRN Reason: Allergy Symptoms Ondansetron HCl (Zofran Inj*) 4 mg IV Q6H PRN PRN Reason: NAUSEA Last Admin: 05/12/16 17:46 Dose: 4 mg Tramadol HCl (Ultram*) 50 mg PO Q6H PRN PRN Reason: PAIN Last Admin: 05/12/16 21:01 Dose: 50 mg Vital Signs 05/12/16 05/12/16 05/12/16 15:31 20:00 20:15 Temperature 98.2 F 98.7 F Pulse Rate 96 100 101 Respiratory 18 18 20 Rate Blood Pressure 141/56 154/67 (mmHg) O2 Sat by Pulse 99 98 98 Oximetry 05/12/16 05/12/16 05/12/16 21:01 23:01 23:35 Temperature 100.4 F Pulse Rate 100 Respiratory 18 16 20 Rate Blood Pressure 117/38 (mmHg) O2 Sat by Pulse 93 Oximetry 05/13/16 05/13/16 05/13/16 00:00 01:03 02:59 Temperature 101.8 F 99.1 F Pulse Rate Respiratory Rate Blood Pressure (mmHg) O2 Sat by Pulse 93 Oximetry 05/13/16 05/13/16 05/13/16 03:29 07:24 07:42 Temperature 97.4 F 98.3 F Pulse Rate 83 96 Respiratory 16 18 18 Rate Blood Pressure 124/59 149/65 (mmHg) O2 Sat by Pulse 96 98 Oximetry 05/13/16 05/13/16 11:05 11:32 Temperature 98.8 F Pulse Rate 92 85 Respiratory 18 22 Rate Blood Pressure 132/58 (mmHg) O2 Sat by Pulse 98 96 Oximetry Oxygen Devices in Use Now: Nasal Cannula Appearance: Middle aged morbidly obese female lying in bed, NAD Eyes: No Scleral Icterus Ears/Nose/Mouth/Throat: Mucous Membranes Moist Respiratory: Symmetrical Chest Expansion and Respiratory Effort, Clear to Auscultation Cardiovascular: NL Sounds; No Murmurs; No JVD, RRR, No Edema Abdominal: - - BS+ soft, ND, mildly tender to palpation Extremities: No Clubbing, Cyanosis Skin: No Rash or Ulcers, No Nodules or Sclerosis Neurological: Alert and Oriented x 3, - - + dysarthric speech (baseline) Result Diagrams: 05/13/16 05:10 05/13/16 05:10 Additional Lab and Data: Lab Results 05/11/16 05/11/16 05/11/16 Range/Units 18:30 18:38 18:57 WBC (3.5-10.8) 10^3/ul RBC (4.0-5.4) 10^6/ul Hgb (12.0-16.0) g/dl Hct (35-47) % MCV (80-97) fL MCH (27-31) pg MCHC (31-36) g/dl RDW (10.5-15) % Plt Count (150-450) 10^3/ul MPV (7.4-10.4) um3 Neut % (Auto) (38-83) % Lymph % (Auto) (25-47) % [place] % (Auto) (1-9) % Eos % (Auto) (0-6) % Baso % (Auto) (0-2) % Absolute Neuts (auto) (1.5-7.7) 10^3/ul Absolute Lymphs (auto) (1.0-4.8) 10^3/ul Absolute Monos (auto) (0-0.8) 10^3/ul Absolute Eos (auto) (0-0.6) 10^3/ul Absolute Basos (auto) (0-0.2) 10^3/ul Absolute Nucleated RBC 10^3/ul Nucleated RBC % INR (Anticoag Therapy) 1.25 H (0.89-1.11) Sodium 128 L (133-145) mmol/L Potassium TNP Chloride 97 L (101-111) mmol/L Carbon Dioxide 18 L (22-32) mmol/L Anion Gap TNP BUN 24 (6-24) mg/dL Creatinine 1.36 H (0.51-0.95) mg/dL Est GFR ( Amer) 52.5 (>60) Est GFR (Non-Af Amer) 40.8 (>60) BUN/Creatinine Ratio 17.6 (8-20) Glucose 134 H (70-100) mg/dL Lactic Acid (0.5-2.0) mmol/L Calcium 8.5 L (8.6-10.3) mg/dL Magnesium TNP Total Bilirubin 0.80 (0.2-1.0) mg/dL AST TNP ALT 18 (7-52) U/L Alkaline Phosphatase 87 (34-104) U/L Total Creatine Kinase 82 (10-223) U/L CK-MB (CK-2) 22.0 H (0.6-6.3) ng/mL Troponin I 0.46 H* (<0.04) ng/mL C-Reactive Protein 280.57 H (< 5.00) mg/L Total Protein 7.1 (6.4-8.9) g/dL Albumin 3.4 (3.2-5.2) g/dL Globulin 3.7 (2-4) g/dL Albumin/Globulin Ratio 0.9 L (1-3) Lipase < 10 L (11.0-82.0) U/L TSH 3.29 (0.34-5.60) mcIU/mL Urine Color Urine Appearance Urine pH (5-9) Ur Specific Peculiar (1.010-1.030) Urine Protein (Negative) Urine Ketones (Negative) Urine Blood (Negative) Urine Nitrate (Negative) Urine Bilirubin (Negative) Urine Urobilinogen (Negative) Ur Leukocyte Esterase (Negative) Urine WBC (Auto) (Absent) Urine RBC (Auto) (Absent) Ur Squamous Epith Cells (Absent) Urine Bacteria (Absent) Urine Glucose (Negative) Influenza A (Rapid) Negative (Negative) Influenza B (Rapid) Negative (Negative) 05/11/16 05/11/16 05/11/16 Range/Units 18:57 18:57 18:57 WBC 19.1 H (3.5-10.8) 10^3/ul RBC 5.20 (4.0-5.4) 10^6/ul Hgb 12.8 (12.0-16.0) g/dl Hct 40 (35-47) % MCV 78 L (80-97) fL MCH 25 L (27-31) pg MCHC 32 (31-36) g/dl RDW 16 H (10.5-15) % Plt Count 212 (150-450) 10^3/ul MPV 10 (7.4-10.4) um3 Neut % (Auto) 88.2 H (38-83) % Lymph % (Auto) 6.1 L (25-47) % [place] % (Auto) 5.4 (1-9) % Eos % (Auto) 0 (0-6) % Baso % (Auto) 0.3 (0-2) % Absolute Neuts (auto) 16.8 H (1.5-7.7) 10^3/ul Absolute Lymphs (auto) 1.2 (1.0-4.8) 10^3/ul Absolute Monos (auto) 1.0 H (0-0.8) 10^3/ul Absolute Eos (auto) 0 (0-0.6) 10^3/ul Absolute Basos (auto) 0.1 (0-0.2) 10^3/ul Absolute Nucleated RBC 0.01 10^3/ul Nucleated RBC % 0.1 INR (Anticoag Therapy) (0.89-1.11) Sodium (133-145) mmol/L Potassium 3.3 L Chloride (101-111) mmol/L Carbon Dioxide (22-32) mmol/L Anion Gap BUN (6-24) mg/dL Creatinine (0.51-0.95) mg/dL Est GFR ( Amer) (>60) Est GFR (Non-Af Amer) (>60) BUN/Creatinine Ratio (8-20) Glucose (70-100) mg/dL Lactic Acid 1.6 (0.5-2.0) mmol/L Calcium (8.6-10.3) mg/dL Magnesium 1.9 Total Bilirubin (0.2-1.0) mg/dL AST 16 ALT (7-52) U/L Alkaline Phosphatase (34-104) U/L Total Creatine Kinase (10-223) U/L CK-MB (CK-2) (0.6-6.3) ng/mL Troponin I (<0.04) ng/mL C-Reactive Protein (< 5.00) mg/L Total Protein (6.4-8.9) g/dL Albumin (3.2-5.2) g/dL Globulin (2-4) g/dL Albumin/Globulin Ratio (1-3) Lipase (11.0-82.0) U/L TSH (0.34-5.60) mcIU/mL Urine Color Urine Appearance Urine pH (5-9) Ur Specific Pec[place]iar (1.010-1.030) Urine Protein (Negative) Urine Ketones (Negative) Urine Blood (Negative) Urine Nitrate (Negative) Urine Bilirubin (Negative) Urine Urobilinogen (Negative) Ur Leukocyte Esterase (Negative) Urine WBC (Auto) (Absent) Urine RBC (Auto) (Absent) Ur Squamous Epith Cells (Absent) Urine Bacteria (Absent) Urine Glucose (Negative) Influenza A (Rapid) (Negative) Influenza B (Rapid) (Negative) 05/11/16 Range/Units 20:25 WBC (3.5-10.8) 10^3/ul RBC (4.0-5.4) 10^6/ul Hgb (12.0-16.0) g/dl Hct (35-47) % MCV (80-97) fL MCH (27-31) pg MCHC (31-36) g/dl RDW (10.5-15) % Plt Count (150-450) 10^3/ul MPV (7.4-10.4) um3 Neut % (Auto) (38-83) % Lymph % (Auto) (25-47) % [place] % (Auto) (1-9) % Eos % (Auto) (0-6) % Baso % (Auto) (0-2) % Absolute Neuts (auto) (1.5-7.7) 10^3/ul Absolute Lymphs (auto) (1.0-4.8) 10^3/ul Absolute Monos (auto) (0-0.8) 10^3/ul Absolute Eos (auto) (0-0.6) 10^3/ul Absolute Basos (auto) (0-0.2) 10^3/ul Absolute Nucleated RBC 10^3/ul Nucleated RBC % INR (Anticoag Therapy) (0.89-1.11) Sodium (133-145) mmol/L Potassium Chloride (101-111) mmol/L Carbon Dioxide (22-32) mmol/L Anion Gap BUN (6-24) mg/dL Creatinine (0.51-0.95) mg/dL Est GFR ( Amer) (>60) Est GFR (Non-Af Amer) (>60) BUN/Creatinine Ratio (8-20) Glucose (70-100) mg/dL Lactic Acid (0.5-2.0) mmol/L Calcium (8.6-10.3) mg/dL Magnesium Total Bilirubin (0.2-1.0) mg/dL AST ALT (7-52) U/L Alkaline Phosphatase (34-104) U/L Total Creatine Kinase (10-223) U/L CK-MB (CK-2) (0.6-6.3) ng/mL Troponin I (<0.04) ng/mL C-Reactive Protein (< 5.00) mg/L Total Protein (6.4-8.9) g/dL Albumin (3.2-5.2) g/dL Globulin (2-4) g/dL Albumin/Globulin Ratio (1-3) Lipase (11.0-82.0) U/L TSH (0.34-5.60) mcIU/mL Urine Color Yesy Urine Appearance Cloudy Urine pH 5.0 (5-9) Ur Specific Peculiar 1.016 (1.010-1.030) Urine Protein 2+(100 mg/dl) H (Negative) Urine Ketones Negative (Negative) Urine Blood 2+ H (Negative) Urine Nitrate Negative (Negative) Urine Bilirubin Negative (Negative) Urine Urobilinogen Negative (Negative) Ur Leukocyte Esterase 3+ H (Negative) Urine WBC (Auto) 3+(>20/hpf) H (Absent) Urine RBC (Auto) 2+(6-10/hpf) H (Absent) Ur Squamous Epith Cells Present H (Absent) Urine Bacteria Absent (Absent) Urine Glucose Negative (Negative) Influenza A (Rapid) (Negative) Influenza B (Rapid) (Negative) Microbiology and Other Data: Microbiology 05/11/16 21:32 Aerobic Blood Culture - Preliminary Blood Venous No Growth Day 1 Anaerobic Blood Culture - Preliminary No Growth Day 1 05/12/16 09:15 Stool Lactoferrin - Final Stool 05/12/16 09:15 Stool Gross Appearance - Final Stool C. difficile DNA Amplification - Final 027 Presumptive NEGATIVE Toxigenic C.diff NEGATIVE Stool Occult Blood (MARIA GUADALUPE) - Final Cryptosporidium/Giardia - Final Neg Cryptosporidium/Giardia Assess/Plan/Problems-Billing Ms. 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 diff colitis. - Patient Problems (1) Pyelonephritis Current Visit: Yes Status: Acute Code(s): N12 - TUBULO-INTERSTITIAL NEPHRITIS, NOT SPCF ACUTE OR CHRONIC SNOMED Code(s): 60438059 Comment: The patient was found to have L sided pyelonephritis. Continue ceftriaxone for now. Appreciate ID input yesterday. (2) Gram negative septicemia Current Visit: Yes Status: Acute Code(s): A41.50 - GRAM-NEGATIVE SEPSIS, UNSPECIFIED SNOMED Code(s): 423984580 Comment: E coli in urine and blood. Pansensitve. Continue ceftriaxone for now. Still having fevers as of this AM but due to the pyelonephritis it is likely she will continue to have intermittent fevers. (3) Diarrhea Current Visit: Yes Status: Acute Code(s): R19.7 - DIARRHEA, UNSPECIFIED SNOMED Code(s): 19444040 Comment: C diff negative though there is a 1% false negative rate. Stop flagyl-I have discussed with Dr. Knight. (4) Hyponatremia Current Visit: Yes Status: Acute Code(s): E87.1 - HYPO-OSMOLALITY AND HYPONATREMIA SNOMED Code(s): 70137070 Comment: Improving. Recheck labs tomorrow AM. (5) Hypokalemia Current Visit: Yes Status: Acute Code(s): E87.6 - HYPOKALEMIA SNOMED Code( s): 42128377 Comment: Replete as needed. (6) DVT prophylaxis Current Visit: Yes Status: Acute Code(s): UWO2640 - SNOMED Code(s): 846990244 Comment: SQ heparin (7) Full code status Current Visit: Yes Status: Acute Code(s): Z78.9 - OTHER SPECIFIED HEALTH STATUS SNOMED Code(s): 096504784 Status and Disposition: .
[2016-05-13] MEDS ORDERED: Loperamide CAP* 2 MG PO PRN (13:45)
--- NOTE | 2016-05-13 14:24 | PN ---
Progress Note - Progress Note SOAP: Subjective: DOS: 05/13/16 CC: fever HPI: 50 year old woman with left flank pain and fever, has pyelonephritis. Left flank pain improving, 04/25 now, pain medicine helps, movement makes it worse. Fever overnight. No rash. Ongoing loose stools. Objective: [] Vital Signs Temp 37.1 C 05/13/16 11:32 Pulse 85 05/13/16 11:32 Resp 22 05/13/16 11:32 BP 132/58 05/13/16 11:32 Pulse Ox 96 05/13/16 11:32 Intake & Output 05/12/16 05/13/16 05/13/16 18:59 06:59 18:59 Intake Total 400 2552 100 Output Total 800 875 Balance -400 1677 100 Intake: IV Fluids 2552 NS (0.9%) 2552 Oral 400 0 100 Output: Urine 500 Zimmer 875 Liquid Stool 300 Other: Estimated Void Medium # Bowel Movements 1 Estimated Stool Amount Medium Medium Gen:No distress Neuro:AAOX3, CN 2-12 intact Neck:Supple Heart:RRR no murmur Lungs:CTA BL Abd:+BS NTND soft, no flank tenderness Skin: No rash MSK: no spine tenderness Laboratory Results - last 24 hr 05/13/16 05/13/16 05:10 05:10 WBC 10.3 RBC 4.16 Hgb 10.4 L Hct 32 L MCV 78 L MCH 25 L MCHC 32 RDW 16 H Plt Count 154 MPV 10 Neut % (Auto) 81.2 Lymph % (Auto) 9.3 L [place] % (Auto) 8.5 Eos % (Auto) 0.6 Baso % (Auto) 0.4 Absolute Neuts (auto) 8.3 H Absolute Lymphs (auto) 1.0 Absolute Monos (auto) 0.9 H Absolute Eos (auto) 0.1 Absolute Basos (auto) 0 Absolute Nucleated RBC 0 Nucleated RBC % 0 Sodium 131 L Potassium 3.5 Chloride 104 Carbon Dioxide 23 Anion Gap 4 BUN 21 Creatinine 1.23 H Est GFR ( Amer) 59.0 Est GFR (Non-Af Amer) 45.9 BUN/Creatinine Ratio 17.1 Glucose 109 H Calcium 8.0 L C-Reactive Protein 264.44 H Assessment: 1. left sided pyleonephritis, due to E.coli, complicated by E.coli bacteremia 2. obesity 3. elevated crp 4. diarrhea 5. fever Plan: 1.continue ceftriaxone, may change to PO on 05/14 2. dc flagyl , can use imodium Discussed with Dr Avalos
[2016-05-13] MEDS: Ondansetron INJ* 2 MG/ML VIAL IV PRN (17:47)
[2016-05-13] MEDS: traMADol TAB* 50 MG PO PRN (17:48)
[2016-05-13] MEDS: oxyCODONE TAB* 5 MG TAB PO PRN (18:49)
[2016-05-14] MEDS: oxyCODONE TAB* 5 MG TAB PO PRN ×4 (01:32→18:08)
[2016-05-14] MEDS: NS 0.9% 1000 ML* 1,000 ML IV SCH ×2 (05:31→18:34)
[2016-05-14 05:45] LABS: Hematocrit 34 % (35-47); Hemoglobin 10.9 g/dl (12.0-16.0); Mean Corpuscular HGB Conc 32 g/dl (31-36); Mean Corpuscular Hemoglobin 25 pg (27-31); Mean Corpuscular Volume 78 fL (80-97); Mean Platelet Volume 10 um3 (7.4-10.4); Red Blood Count 4.34 10^6/ul (4.0-5.4); Red Cell Distribution Width 17 % (10.5-15); White Blood Count 8.5 10^3/ul (3.5-10.8)
[2016-05-14 05:59] LABS: BUN/Creatinine Ratio 14.8 (8-20); Calcium 8.2 mg/dL (8.6-10.3); EGFR African American 68.5 (>60); EGFR Non-African American 53.3 (>60); Potassium 3.2 mmol/L (3.5-5.0)
[2016-05-14] MEDS: Heparin VIAL(*) 5000 UNITS/ML VIAL (FIVE THOUSAND) SUBCUT SCH ×3 (06:07→20:58)
[2016-05-14] MEDS: Aspirin TAB* 325 MG PO SCH (08:16)
[2016-05-14] MEDS: Albuterol HFA INHALER* 8 gm MDI INH PRN ×2 (08:45→18:07)
[2016-05-14] MEDS: traMADol TAB* 50 MG PO PRN ×2 (10:52→16:02)
--- NOTE | 2016-05-14 14:34 | PN ---
Subjective Date of Service: 05/14/16 Interval History: Pt is feeling better. She states her diarrhea is now soft and not liquid. Less pain. Objective Active Medications: Acetaminophen (Tylenol Tab*) 650 mg PO Q6H PRN PRN Reason: FEVER/PAIN Last Admin: 05/13/16 21:08 Dose: 650 mg Albuterol (Ventolin 2.5 Mg/3 Ml Neb.Kayy*) 2.5 mg INH Q2H PRN PRN Reason: SOB/WHEEZING Albuterol (Ventolin Hfa Inhaler*) 2 puff INH Q4H PRN PRN Reason: WHEEZING Last Admin: 05/14/16 08:45 Dose: 2 puff Aspirin (Aspirin Tab*) 325 mg PO DAILY JARET Last Admin: 05/14/16 08:16 Dose: 325 mg Heparin Sodium (Porcine) (Heparin Vial(*)) 5,000 units SUBCUT Q8HR JARET Last Admin: 05/14/16 13:55 Dose: 5,000 units Ceftriaxone Sodium 2 gm/ (Sodium Chloride) 100 mls @ 200 mls/hr IVPB Q24H JARET Last Admin: 05/14/16 12:43 Dose: 200 mls/hr Sodium Chloride (Ns 0.9% 1000 Ml*) 1,000 mls @ 75 mls/hr IV PER RATE JARET Last Admin: 05/14/16 05:31 Dose: 75 mls/hr Loperamide HCl (Imodium Cap*) 2 mg PO .SEE DIRECTIONS PRN PRN Reason: DIARRHEA Last Admin: 05/13/16 14:45 Dose: 2 mg Melatonin (Melatonin (Nf)) 3 mg PO BEDTIME PRN; Protocol PRN Reason: Sleep Last Admin: 05/12/16 21:57 Dose: 3 mg Montelukast Sodium (Singulair Tab*) 10 mg PO BEDTIME PRN PRN Reason: Allergy Symptoms Ondansetron HCl (Zofran Inj*) 4 mg IV Q6H PRN PRN Reason: NAUSEA Last Admin: 05/13/16 17:47 Dose: 4 mg Oxycodone HCl (Roxycodone Tab*) 5 mg PO Q4H PRN PRN Reason: PAIN Last Admin: 05/14/16 12:43 Dose: 5 mg Potassium Chloride (Klor Con Er Tab*) 40 meq PO Q4H JARET Stop: 05/14/16 19:01 Tramadol HCl (Ultram*) 50 mg PO Q6H PRN PRN Reason: PAIN Last Admin: 05/14/16 10:52 Dose: 50 mg Vital Signs 05/13/16 05/13/16 05/13/16 14:45 15:28 16:45 Temperature Pulse Rate 100 Respiratory 18 16 16 Rate Blood Pressure 158/73 (mmHg) O2 Sat by Pulse 97 Oximetry 05/13/16 05/13/16 05/13/16 17:48 18:49 19:20 Temperature 97.6 F Pulse Rate 97 Respiratory 20 8 17 Rate Blood Pressure 155/63 (mmHg) O2 Sat by Pulse 93 Oximetry 05/13/16 05/13/16 05/13/16 19:48 20:49 23:34 Temperature Pulse Rate 74 Respiratory 19 19 20 Rate Blood Pressure 119/58 (mmHg) O2 Sat by Pulse 95 Oximetry 05/14/16 05/14/16 05/14/16 01:32 03:32 04:17 Temperature 99.0 F Pulse Rate 91 Respiratory 19 19 20 Rate Blood Pressure 147/73 (mmHg) O2 Sat by Pulse 92 Oximetry 05/14/16 05/14/16 05/14/16 04:55 07:15 07:40 Temperature 99.8 F Pulse Rate 88 89 Respiratory 14 20 20 Rate Blood Pressure 148/48 (mmHg) O2 Sat by Pulse 92 96 Oximetry 05/14/16 05/14/16 05/14/16 08:04 08:17 10:52 Temperature 99.8 F Pulse Rate 99 Respiratory 20 18 Rate Blood Pressure 147/49 (mmHg) O2 Sat by Pulse 96 Oximetry 05/14/16 05/14/16 05/14/16 11:39 11:43 12:43 Temperature 98.7 F Pulse Rate 73 Respiratory 20 16 Rate Blood Pressure 131/66 (mmHg) O2 Sat by Pulse 97 Oximetry 05/14/16 12:52 Temperature Pulse Rate Respiratory 18 Rate Blood Pressure (mmHg) O2 Sat by Pulse Oximetry Oxygen Devices in Use Now: None Appearance: Middle aged morbidly obese female sitting up in bed, NAD Eyes: No Scleral Icterus Ears/Nose/Mouth/Throat: Mucous Membranes Moist Respiratory: Symmetrical Chest Expansion and Respiratory Effort, Clear to Auscultation - anteriorly Cardiovascular: NL Sounds; No Murmurs; No JVD, RRR, No Edema Abdominal: NL Sounds; No Tenderness; No Distention Extremities: No Clubbing, Cyanosis Skin: No Rash or Ulcers, No Nodules or Sclerosis Neurological: Alert and Oriented x 3 Result Diagrams: 05/14/16 05:20 05/14/16 05:20 Additional Lab and Data: Lab Results 05/11/16 05/11/16 05/11/16 Range/Units 18:30 18:38 18:57 WBC (3.5-10.8) 10^3/ul RBC (4.0-5.4) 10^6/ul Hgb (12.0-16.0) g/dl Hct (35-47) % MCV (80-97) fL MCH (27-31) pg MCHC (31-36) g/dl RDW (10.5-15) % Plt Count (150-450) 10^3/ul MPV (7.4-10.4) um3 Neut % (Auto) (38-83) % Lymph % (Auto) (25-47) % [place] % (Auto) (1-9) % Eos % (Auto) (0-6) % Baso % (Auto) (0-2) % Absolute Neuts (auto) (1.5-7.7) 10^3/ul Absolute Lymphs (auto) (1.0-4.8) 10^3/ul Absolute Monos (auto) (0-0.8) 10^3/ul Absolute Eos (auto) (0-0.6) 10^3/ul Absolute Basos (auto) (0-0.2) 10^3/ul Absolute Nucleated RBC 10^3/ul Nucleated RBC % INR (Anticoag Therapy) 1.25 H (0.89-1.11) Sodium 128 L (133-145) mmol/L Potassium TNP Chloride 97 L (101-111) mmol/L Carbon Dioxide 18 L (22-32) mmol/L Anion Gap TNP BUN 24 (6-24) mg/dL Creatinine 1.36 H (0.51-0.95) mg/dL Est GFR ( Amer) 52.5 (>60) Est GFR (Non-Af Amer) 40.8 (>60) BUN/Creatinine Ratio 17.6 (8-20) Glucose 134 H (70-100) mg/dL Lactic Acid (0.5-2.0) mmol/L Calcium 8.5 L (8.6-10.3) mg/dL Magnesium TNP Total Bilirubin 0.80 (0.2-1.0) mg/dL AST TNP ALT 18 (7-52) U/L Alkaline Phosphatase 87 (34-104) U/L Total Creatine Kinase 82 (10-223) U/L CK-MB (CK-2) 22.0 H (0.6-6.3) ng/mL Troponin I 0.46 H* (<0.04) ng/mL C-Reactive Protein 280.57 H (< 5.00) mg/L Total Protein 7.1 (6.4-8.9) g/dL Albumin 3.4 (3.2-5.2) g/dL Globulin 3.7 (2-4) g/dL Albumin/Globulin Ratio 0.9 L (1-3) Lipase < 10 L (11.0-82.0) U/L TSH 3.29 (0.34-5.60) mcIU/mL Urine Color Urine Appearance Urine pH (5-9) Ur Specific [place] (1.010-1.030) Urine Protein (Negative) Urine Ketones (Negative) Urine Blood (Negative) Urine Nitrate (Negative) Urine Bilirubin (Negative) Urine Urobilinogen (Negative) Ur Leukocyte Esterase (Negative) Urine WBC (Auto) (Absent) Urine RBC (Auto) (Absent) Ur Squamous Epith Cells (Absent) Urine Bacteria (Absent) Urine Glucose (Negative) Influenza A (Rapid) Negative (Negative) Influenza B (Rapid) Negative (Negative) 05/11/16 05/11/16 05/11/16 Range/Units 18:57 18:57 18:57 WBC 19.1 H (3.5-10.8) 10^3/ul RBC 5.20 (4.0-5.4) 10^6/ul Hgb 12.8 (12.0-16.0) g/dl Hct 40 (35-47) % MCV 78 L (80-97) fL MCH 25 L (27-31) pg MCHC 32 (31-36) g/dl RDW 16 H (10.5-15) % Plt Count 212 (150-450) 10^3/ul MPV 10 (7.4-10.4) um3 Neut % (Auto) 88.2 H (38-83) % Lymph % (Auto) 6.1 L (25-47) % [place] % (Auto) 5.4 (1-9) % Eos % (Auto) 0 (0-6) % Baso % (Auto) 0.3 (0-2) % Absolute Neuts (auto) 16.8 H (1.5-7.7) 10^3/ul Absolute Lymphs (auto) 1.2 (1.0-4.8) 10^3/ul Absolute Monos (auto) 1.0 H (0-0.8) 10^3/ul Absolute Eos (auto) 0 (0-0.6) 10^3/ul Absolute Basos (auto) 0.1 (0-0.2) 10^3/ul Absolute Nucleated RBC 0.01 10^3/ul Nucleated RBC % 0.1 INR (Anticoag Therapy) (0.89-1.11) Sodium (133-145) mmol/L Potassium 3.3 L Chloride (101-111) mmol/L Carbon Dioxide (22-32) mmol/L Anion Gap BUN (6-24) mg/dL Creatinine (0.51-0.95) mg/dL Est GFR ( Amer) (>60) Est GFR (Non-Af Amer) (>60) BUN/Creatinine Ratio (8-20) Glucose (70-100) mg/dL Lactic Acid 1.6 (0.5-2.0) mmol/L Calcium (8.6-10.3) mg/dL Magnesium 1.9 Total Bilirubin (0.2-1.0) mg/dL AST 16 ALT (7-52) U/L Alkaline Phosphatase (34-104) U/L Total Creatine Kinase (10-223) U/L CK-MB (CK-2) (0.6-6.3) ng/mL Troponin I (<0.04) ng/mL C-Reactive Protein (< 5.00) mg/L Total Protein (6.4-8.9) g/dL Albumin (3.2-5.2) g/dL Globulin (2-4) g/dL Albumin/Globulin Ratio (1-3) Lipase (11.0-82.0) U/L TSH (0.34-5.60) mcIU/mL Urine Color Urine Appearance Urine pH (5-9) Ur Specific [place] (1.010-1.030) Urine Protein (Negative) Urine Ketones (Negative) Urine Blood (Negative) Urine Nitrate (Negative) Urine Bilirubin (Negative) Urine Urobilinogen (Negative) Ur Leukocyte Esterase (Negative) Urine WBC (Auto) (Absent) Urine RBC (Auto) (Absent) Ur Squamous Epith Cells (Absent) Urine Bacteria (Absent) Urine Glucose (Negative) Influenza A (Rapid) (Negative) Influenza B (Rapid) (Negative) 05/11/16 Range/Units 20:25 WBC (3.5-10.8) 10^3/ul RBC (4.0-5.4) 10^6/ul Hgb (12.0-16.0) g/dl Hct (35-47) % MCV (80-97) fL MCH (27-31) pg MCHC (31-36) g/dl RDW (10.5-15) % Plt Count (150-450) 10^3/ul MPV (7.4-10.4) um3 Neut % (Auto) (38-83) % Lymph % (Auto) (25-47) % [place] % (Auto) (1-9) % Eos % (Auto) (0-6) % Baso % (Auto) (0-2) % Absolute Neuts (auto) (1.5-7.7) 10^3/ul Absolute Lymphs (auto) (1.0-4.8) 10^3/ul Absolute Monos (auto) (0-0.8) 10^3/ul Absolute Eos (auto) (0-0.6) 10^3/ul Absolute Basos (auto) (0-0.2) 10^3/ul Absolute Nucleated RBC 10^3/ul Nucleated RBC % INR (Anticoag Therapy) (0.89-1.11) Sodium (133-145) mmol/L Potassium Chloride (101-111) mmol/L Carbon Dioxide (22-32) mmol/L Anion Gap BUN (6-24) mg/dL Creatinine (0.51-0.95) mg/dL Est GFR ( Amer) (>60) Est GFR (Non-Af Amer) (>60) BUN/Creatinine Ratio (8-20) Glucose (70-100) mg/dL Lactic Acid (0.5-2.0) mmol/L Calcium (8.6-10.3) mg/dL Magnesium Total Bilirubin (0.2-1.0) mg/dL AST ALT (7-52) U/L Alkaline Phosphatase (34-104) U/L Total Creatine Kinase (10-223) U/L CK-MB (CK-2) (0.6-6.3) ng/mL Troponin I (<0.04) ng/mL C-Reactive Protein (< 5.00) mg/L Total Protein (6.4-8.9) g/dL Albumin (3.2-5.2) g/dL Globulin (2-4) g/dL Albumin/Globulin Ratio (1-3) Lipase (11.0-82.0) U/L TSH (0.34-5.60) mcIU/mL Urine Color Yesy Urine Appearance Cloudy Urine pH 5.0 (5-9) Ur Specific [place] 1.016 (1.010-1.030) Urine Protein 2+(100 mg/dl) H (Negative) Urine Ketones Negative (Negative) Urine Blood 2+ H (Negative) Urine Nitrate Negative (Negative) Urine Bilirubin Negative (Negative) Urine Urobilinogen Negative (Negative) Ur Leukocyte Esterase 3+ H (Negative) Urine WBC (Auto) 3+(>20/hpf) H (Absent) Urine RBC (Auto) 2+(6-10/hpf) H (Absent) Ur Squamous Epith Cells Present H (Absent) Urine Bacteria Absent (Absent) Urine Glucose Negative (Negative) Influenza A (Rapid) (Negative) Influenza B (Rapid) (Negative) Microbiology and Other Data: Microbiology 05/11/16 21:32 Aerobic Blood Culture - Preliminary Blood Venous No Growth Day 1 Anaerobic Blood Culture - Preliminary No Growth Day 1 05/12/16 09:15 Stool Lactoferrin - Final Stool 05/12/16 09:15 Stool Gross Appearance - Final Stool C. difficile DNA Amplification - Final 027 Presumptive NEGATIVE Toxigenic C.diff NEGATIVE Stool Occult Blood (MARIA GUADALUPE) - Final Cryptosporidium/Giardia - Final Neg Cryptosporidium/Giardia Assess/Plan/Problems-Billing Ms. 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 diff colitis. - Patient Problems (1) Pyelonephritis Current Visit: Yes Status: Acute Code(s): N12 - TUBULO-INTERSTITIAL NEPHRITIS, NOT SPCF ACUTE OR CHRONIC SNOMED Code(s): 42244409 Comment: The patient was found to have L sided pyelonephritis. Continue ceftriaxone for today and likey home tomorrow on cipro. (2) Gram negative septicemia Current Visit: Yes Status: Acute Code(s): A41.50 - GRAM-NEGATIVE SEPSIS, UNSPECIFIED SNOMED Code(s): 073133239 Comment: E coli in urine and blood. Pansensitve. Continue ceftriaxone for now. No further fevers. Change to cipro tomorrow. (3) Full code status Current Visit: Yes Status: Acute Code(s): Z78.9 - OTHER SPECIFIED HEALTH STATUS SNOMED Code(s): 028484648 Comment: Improving but creatinine is still not back to baseline. Continue to monitor. (4) Diarrhea Current Visit: Yes Status: Acute Code(s): R19.7 - DIARRHEA, UNSPECIFIED SNOMED Code(s): 39575226 Comment: Improving. She had 1 dose of imodium yesterday. (5) Hyponatremia Current Visit: Yes Status: Acute Code(s): E87.1 - HYPO-OSMOLALITY AND HYPONATREMIA SNOMED Code(s): 19726270 Comment: Resolved. (6) Hypokalemia Current Visit: Yes Status: Acute Code(s): E87.6 - HYPOKALEMIA SNOMED Code( s): 14299230 Comment: Replete as needed. Likely GI losses. (7) DVT prophylaxis Current Visit: Yes Status: Acute Code(s): GAZ3011 - SNOMED Code(s): 319952587 Comment: SQ heparin Status and Disposition: .
[2016-05-14] MEDS: Potassium Chlor TAB* 20 MEQ TAB.ER PO SCH ×2 (15:24→18:36)
--- NOTE | 2016-05-14 16:43 | PN ---
Progress Note - Progress Note SOAP: Subjective: DOS: 05/13/16 CC: fever HPI: 50 year old woman with left flank pain and fever, has pyelonephritis. Flank pain resolved, no fever overnight. Has taylor. No rash or diarrhea. Objective: [] Vital Signs Temp 36.7 C 05/14/16 15:07 Pulse 80 05/14/16 15:26 Resp 18 05/14/16 16:02 BP 146/60 05/14/16 15:07 Pulse Ox 99 05/14/16 15:26 Intake & Output 05/13/16 05/14/16 05/14/16 18:59 06:59 18:59 Intake Total 1433 640 949 Output Total 1225 450 Balance 1433 -585 499 Intake: IV Fluids 1225 NS (0.9%) 1225 IVPB 108 709 ABX - CEFTRIAXONE 108 100 NS (0.9%) 609 Oral 100 640 240 Output: Urine 0 Taylor 1225 450 Other: # Bowel Movements 0 1 Estimated Stool Amount Medium Gen:No distress Neuro:AAOX3, CN 2-12 intact Neck:Supple Heart:RRR no murmur Lungs:CTA BL Abd:+BS NTND soft, no flank tenderness Skin: No rash MSK: no spine tenderness Laboratory Results - last 24 hr 05/14/16 05/14/16 05:20 05:20 WBC 8.5 RBC 4.34 Hgb 10.9 L Hct 34 L MCV 78 L MCH 25 L MCHC 32 RDW 17 H Plt Count 155 MPV 10 Neut % (Auto) 77.5 Lymph % (Auto) 11.4 L [place] % (Auto) 8.7 Eos % (Auto) 1.5 Baso % (Auto) 0.9 Absolute Neuts (auto) 6.6 Absolute Lymphs (auto) 1.0 Absolute Monos (auto) 0.7 Absolute Eos (auto) 0.1 Absolute Basos (auto) 0.1 Absolute Nucleated RBC 0 Nucleated RBC % 0 Sodium 133 Potassium 3.2 L Chloride 102 Carbon Dioxide 26 Anion Gap 5 BUN 16 Creatinine 1.08 H Est GFR ( Amer) 68.5 Est GFR (Non-Af Amer) 53.3 BUN/Creatinine Ratio 14.8 Glucose 99 Calcium 8.2 L Assessment: 1. left sided pyleonephritis, due to E.coli, complicated by E.coli bacteremia 2. obesity 3. elevated crp 4. diarrhea 5. fever Plan: 1.can use cipro 500 mg po bid x10 days, rachel taylor Discussed with Dr Avalos
[2016-05-14] MEDS ORDERED: Cetirizine* 10 MG TAB PO PRN (23:00)
[2016-05-15] MEDS: Heparin VIAL(*) 5000 UNITS/ML VIAL (FIVE THOUSAND) SUBCUT SCH (05:21)
[2016-05-15] MEDS: Aspirin TAB* 325 MG PO SCH (08:10)
[2016-05-15] MEDS: NS 0.9% 1000 ML* 1,000 ML IV SCH (08:11)
[2016-05-15 12:20] VITALS: BP 145/71
--- NOTE | 2016-05-15 12:40 | PN ---
Subjective Date of Service: 05/15/16 Interval History: Pt is feeling well. She denies any pain. She is having 2-3 mushy BMs/day. She wants to go home. Objective Active Medications: Acetaminophen (Tylenol Tab*) 650 mg PO Q6H PRN PRN Reason: FEVER/PAIN Last Admin: 05/13/16 21:08 Dose: 650 mg Albuterol (Ventolin 2.5 Mg/3 Ml Neb.Kayy*) 2.5 mg INH Q2H PRN PRN Reason: SOB/WHEEZING Albuterol (Ventolin Hfa Inhaler*) 2 puff INH Q4H PRN PRN Reason: WHEEZING Last Admin: 05/14/16 18:07 Dose: 2 puff Aspirin (Aspirin Tab*) 325 mg PO DAILY JARET Last Admin: 05/15/16 08:10 Dose: 325 mg Cetirizine HCl (Zyrtec*) 10 mg PO DAILY PRN PRN Reason: CONGESTION Heparin Sodium (Porcine) (Heparin Vial(*)) 5,000 units SUBCUT Q8HR [facility] Last Admin: 05/15/16 05:21 Dose: 5,000 units Ceftriaxone Sodium 2 gm/ (Sodium Chloride) 100 mls @ 200 mls/hr IVPB Q24H JARET Last Admin: 05/14/16 12:43 Dose: 200 mls/hr Sodium Chloride (Ns 0.9% 1000 Ml*) 1,000 mls @ 75 mls/hr IV PER RATE JARET Last Admin: 05/15/16 08:11 Dose: 75 mls/hr Loperamide HCl (Imodium Cap*) 2 mg PO .SEE DIRECTIONS PRN PRN Reason: DIARRHEA Last Admin: 05/13/16 14:45 Dose: 2 mg Melatonin (Melatonin (Nf)) 3 mg PO BEDTIME PRN; Protocol PRN Reason: Sleep Last Admin: 05/12/16 21:57 Dose: 3 mg Montelukast Sodium (Singulair Tab*) 10 mg PO BEDTIME PRN PRN Reason: Allergy Symptoms Ondansetron HCl (Zofran Inj*) 4 mg IV Q6H PRN PRN Reason: NAUSEA Last Admin: 05/13/16 17:47 Dose: 4 mg Oxycodone HCl (Roxycodone Tab*) 5 mg PO Q4H PRN PRN Reason: PAIN Last Admin: 05/14/16 18:08 Dose: 5 mg Tramadol HCl (Ultram*) 50 mg PO Q6H PRN PRN Reason: PAIN Last Admin: 05/14/16 16:02 Dose: 50 mg Vital Signs 05/14/16 05/14/16 05/14/16 12:43 12:52 15:07 Temperature 98.1 F Pulse Rate 79 Respiratory 16 18 18 Rate Blood Pressure 146/60 (mmHg) O2 Sat by Pulse 99 Oximetry 05/14/16 05/14/16 05/14/16 15:26 16:02 18:08 Temperature Pulse Rate 80 Respiratory 14 18 22 Rate Blood Pressure (mmHg) O2 Sat by Pulse 99 Oximetry 05/14/16 05/14/16 05/14/16 19:33 20:00 20:08 Temperature 100.0 F Pulse Rate 97 Respiratory 24 20 21 Rate Blood Pressure 127/36 (mmHg) O2 Sat by Pulse 90 Oximetry 05/14/16 05/14/16 05/15/16 20:12 23:59 00:40 Temperature 98.6 F Pulse Rate 94 86 Respiratory 16 20 Rate Blood Pressure 141/56 (mmHg) O2 Sat by Pulse 96 95 96 Oximetry 05/15/16 05/15/16 05/15/16 04:18 07:22 10:39 Temperature 98.3 F 98.8 F Pulse Rate 90 80 77 Respiratory 20 18 16 Rate Blood Pressure 134/67 147/49 (mmHg) O2 Sat by Pulse 97 96 96 Oximetry 05/15/16 11:40 Temperature 97.6 F Pulse Rate 82 Respiratory 18 Rate Blood Pressure 145/71 (mmHg) O2 Sat by Pulse 96 Oximetry Oxygen Devices in Use Now: None Appearance: Middle aged female sitting in a chair, NAD Eyes: No Scleral Icterus Ears/Nose/Mouth/Throat: Mucous Membranes Moist Respiratory: Symmetrical Chest Expansion and Respiratory Effort, Clear to Auscultation Cardiovascular: NL Sounds; No Murmurs; No JVD, RRR, No Edema Abdominal: NL Sounds; No Tenderness; No Distention Extremities: No Clubbing, Cyanosis Skin: No Rash or Ulcers, No Nodules or Sclerosis Neurological: Alert and Oriented x 3, - - + dysarthric speech Result Diagrams: 05/14/16 05:20 05/14/16 05:20 Additional Lab and Data: Lab Results 05/11/16 05/11/16 05/11/16 Range/Units 18:30 18:38 18:57 WBC (3.5-10.8) 10^3/ul RBC (4.0-5.4) 10^6/ul Hgb (12.0-16.0) g/dl Hct (35-47) % MCV (80-97) fL MCH (27-31) pg MCHC (31-36) g/dl RDW (10.5-15) % Plt Count (150-450) 10^3/ul MPV (7.4-10.4) um3 Neut % (Auto) (38-83) % Lymph % (Auto) (25-47) % Boyle % (Auto) (1-9) % Eos % (Auto) (0-6) % Baso % (Auto) (0-2) % Absolute Neuts (auto) (1.5-7.7) 10^3/ul Absolute Lymphs (auto) (1.0-4.8) 10^3/ul Absolute Monos (auto) (0-0.8) 10^3/ul Absolute Eos (auto) (0-0.6) 10^3/ul Absolute Basos (auto) (0-0.2) 10^3/ul Absolute Nucleated RBC 10^3/ul Nucleated RBC % INR (Anticoag Therapy) 1.25 H (0.89-1.11) Sodium 128 L (133-145) mmol/L Potassium TNP Chloride 97 L (101-111) mmol/L Carbon Dioxide 18 L (22-32) mmol/L Anion Gap TNP BUN 24 (6-24) mg/dL Creatinine 1.36 H (0.51-0.95) mg/dL Est GFR ( Amer) 52.5 (>60) Est GFR (Non-Af Amer) 40.8 (>60) BUN/Creatinine Ratio 17.6 (8-20) Glucose 134 H (70-100) mg/dL Lactic Acid (0.5-2.0) mmol/L Calcium 8.5 L (8.6-10.3) mg/dL Magnesium TNP Total Bilirubin 0.80 (0.2-1.0) mg/dL AST TNP ALT 18 (7-52) U/L Alkaline Phosphatase 87 (34-104) U/L Total Creatine Kinase 82 (10-223) U/L CK-MB (CK-2) 22.0 H (0.6-6.3) ng/mL Troponin I 0.46 H* (<0.04) ng/mL C-Reactive Protein 280.57 H (< 5.00) mg/L Total Protein 7.1 (6.4-8.9) g/dL Albumin 3.4 (3.2-5.2) g/dL Globulin 3.7 (2-4) g/dL Albumin/Globulin Ratio 0.9 L (1-3) Lipase < 10 L (11.0-82.0) U/L TSH 3.29 (0.34-5.60) mcIU/mL Urine Color Urine Appearance Urine pH (5-9) Ur Specific Elliston (1.010-1.030) Urine Protein (Negative) Urine Ketones (Negative) Urine Blood (Negative) Urine Nitrate (Negative) Urine Bilirubin (Negative) Urine Urobilinogen (Negative) Ur Leukocyte Esterase (Negative) Urine WBC (Auto) (Absent) Urine RBC (Auto) (Absent) Ur Squamous Epith Cells (Absent) Urine Bacteria (Absent) Urine Glucose (Negative) Influenza A (Rapid) Negative (Negative) Influenza B (Rapid) Negative (Negative) 05/11/16 05/11/16 05/11/16 Range/Units 18:57 18:57 18:57 WBC 19.1 H (3.5-10.8) 10^3/ul RBC 5.20 (4.0-5.4) 10^6/ul Hgb 12.8 (12.0-16.0) g/dl Hct 40 (35-47) % MCV 78 L (80-97) fL MCH 25 L (27-31) pg MCHC 32 (31-36) g/dl RDW 16 H (10.5-15) % Plt Count 212 (150-450) 10^3/ul MPV 10 (7.4-10.4) um3 Neut % (Auto) 88.2 H (38-83) % Lymph % (Auto) 6.1 L (25-47) % Boyle % (Auto) 5.4 (1-9) % Eos % (Auto) 0 (0-6) % Baso % (Auto) 0.3 (0-2) % Absolute Neuts (auto) 16.8 H (1.5-7.7) 10^3/ul Absolute Lymphs (auto) 1.2 (1.0-4.8) 10^3/ul Absolute Monos (auto) 1.0 H (0-0.8) 10^3/ul Absolute Eos (auto) 0 (0-0.6) 10^3/ul Absolute Basos (auto) 0.1 (0-0.2) 10^3/ul Absolute Nucleated RBC 0.01 10^3/ul Nucleated RBC % 0.1 INR (Anticoag Therapy) (0.89-1.11) Sodium (133-145) mmol/L Potassium 3.3 L Chloride (101-111) mmol/L Carbon Dioxide (22-32) mmol/L Anion Gap BUN (6-24) mg/dL Creatinine (0.51-0.95) mg/dL Est GFR ( Amer) (>60) Est GFR (Non-Af Amer) (>60) BUN/Creatinine Ratio (8-20) Glucose (70-100) mg/dL Lactic Acid 1.6 (0.5-2.0) mmol/L Calcium (8.6-10.3) mg/dL Magnesium 1.9 Total Bilirubin (0.2-1.0) mg/dL AST 16 ALT (7-52) U/L Alkaline Phosphatase (34-104) U/L Total Creatine Kinase (10-223) U/L CK-MB (CK-2) (0.6-6.3) ng/mL Troponin I (<0.04) ng/mL C-Reactive Protein (< 5.00) mg/L Total Protein (6.4-8.9) g/dL Albumin (3.2-5.2) g/dL Globulin (2-4) g/dL Albumin/Globulin Ratio (1-3) Lipase (11.0-82.0) U/L TSH (0.34-5.60) mcIU/mL Urine Color Urine Appearance Urine pH (5-9) Ur Specific Elliston (1.010-1.030) Urine Protein (Negative) Urine Ketones (Negative) Urine Blood (Negative) Urine Nitrate (Negative) Urine Bilirubin (Negative) Urine Urobilinogen (Negative) Ur Leukocyte Esterase (Negative) Urine WBC (Auto) (Absent) Urine RBC (Auto) (Absent) Ur Squamous Epith Cells (Absent) Urine Bacteria (Absent) Urine Glucose (Negative) Influenza A (Rapid) (Negative) Influenza B (Rapid) (Negative) 05/11/16 Range/Units 20:25 WBC (3.5-10.8) 10^3/ul RBC (4.0-5.4) 10^6/ul Hgb (12.0-16.0) g/dl Hct (35-47) % MCV (80-97) fL MCH (27-31) pg MCHC (31-36) g/dl RDW (10.5-15) % Plt Count (150-450) 10^3/ul MPV (7.4-10.4) um3 Neut % (Auto) (38-83) % Lymph % (Auto) (25-47) % Boyle % (Auto) (1-9) % Eos % (Auto) (0-6) % Baso % (Auto) (0-2) % Absolute Neuts (auto) (1.5-7.7) 10^3/ul Absolute Lymphs (auto) (1.0-4.8) 10^3/ul Absolute Monos (auto) (0-0.8) 10^3/ul Absolute Eos (auto) (0-0.6) 10^3/ul Absolute Basos (auto) (0-0.2) 10^3/ul Absolute Nucleated RBC 10^3/ul Nucleated RBC % INR (Anticoag Therapy) (0.89-1.11) Sodium (133-145) mmol/L Potassium Chloride (101-111) mmol/L Carbon Dioxide (22-32) mmol/L Anion Gap BUN (6-24) mg/dL Creatinine (0.51-0.95) mg/dL Est GFR ( Amer) (>60) Est GFR (Non-Af Amer) (>60) BUN/Creatinine Ratio (8-20) Glucose (70-100) mg/dL Lactic Acid (0.5-2.0) mmol/L Calcium (8.6-10.3) mg/dL Magnesium Total Bilirubin (0.2-1.0) mg/dL AST ALT (7-52) U/L Alkaline Phosphatase (34-104) U/L Total Creatine Kinase (10-223) U/L CK-MB (CK-2) (0.6-6.3) ng/mL Troponin I (<0.04) ng/mL C-Reactive Protein (< 5.00) mg/L Total Protein (6.4-8.9) g/dL Albumin (3.2-5.2) g/dL Globulin (2-4) g/dL Albumin/Globulin Ratio (1-3) Lipase (11.0-82.0) U/L TSH (0.34-5.60) mcIU/mL Urine Color Yesy Urine Appearance Cloudy Urine pH 5.0 (5-9) Ur Specific Elliston 1.016 (1.010-1.030) Urine Protein 2+(100 mg/dl) H (Negative) Urine Ketones Negative (Negative) Urine Blood 2+ H (Negative) Urine Nitrate Negative (Negative) Urine Bilirubin Negative (Negative) Urine Urobilinogen Negative (Negative) Ur Leukocyte Esterase 3+ H (Negative) Urine WBC (Auto) 3+(>20/hpf) H (Absent) Urine RBC (Auto) 2+(6-10/hpf) H (Absent) Ur Squamous Epith Cells Present H (Absent) Urine Bacteria Absent (Absent) Urine Glucose Negative (Negative) Influenza A (Rapid) (Negative) Influenza B (Rapid) (Negative) Microbiology and Other Data: Microbiology 05/11/16 21:32 Aerobic Blood Culture - Preliminary Blood Venous No Growth Day 1 Anaerobic Blood Culture - Preliminary No Growth Day 1 05/12/16 09:15 Stool Lactoferrin - Final Stool 05/12/16 09:15 Stool Gross Appearance - Final Stool C. difficile DNA Amplification - Final 027 Presumptive NEGATIVE Toxigenic C.diff NEGATIVE Stool Occult Blood (MARIA GUADALUPE) - Final Cryptosporidium/Giardia - Final Neg Cryptosporidium/Giardia Assess/Plan/Problems-Billing Ms. 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 diff colitis. - Patient Problems (1) Pyelonephritis Current Visit: Yes Status: Acute Code(s): N12 - TUBULO-INTERSTITIAL NEPHRITIS, NOT SPCF ACUTE OR CHRONIC SNOMED Code(s): 39566273 Comment: The patient was found to have L sided pyelonephritis. Change to cipro for 10 more days. (2) Gram negative septicemia Current Visit: Yes Status: Acute Code(s): A41.50 - GRAM-NEGATIVE SEPSIS, UNSPECIFIED SNOMED Code(s): 769579137 Comment: E coli in urine and blood. Pansensitve. Change to cipro- 10 more days of therapy. Follow up BC negative. (3) ANGELLA (acute kidney injury) Current Visit: Yes Status: Acute Code(s): N17.9 - ACUTE KIDNEY FAILURE, UNSPECIFIED SNOMED Code(s): 08516810 Comment: Improved but not back to baseline. Follow up BMP 05/19/16. (4) Diarrhea Current Visit: Yes Status: Acute Code(s): R19.7 - DIARRHEA, UNSPECIFIED SNOMED Code(s): 68722748 Comment: Continues to improve. Monitor at home while on cipro. (5) Hyponatremia Current Visit: Yes Status: Acute Code(s): E87.1 - HYPO-OSMOLALITY AND HYPONATREMIA SNOMED Code(s): 64488025 Comment: Resolved. (6) Hypokalemia Current Visit: Yes Status: Acute Code(s): E87.6 - HYPOKALEMIA SNOMED Code( s): 92085786 Comment: Pt needs repeat BMP 05/19/16. (7) DVT prophylaxis Current Visit: Yes Status: Acute Code(s): PEW0401 - SNOMED Code(s): 290554401 Comment: SQ heparin (8) Full code status Current Visit: Yes Status: Acute Code(s): Z78.9 - OTHER SPECIFIED HEALTH STATUS SNOMED Code(s): 022306623 Status and Disposition: d/c home
--- NOTE | 2016-05-16 11:48 | DS ---
DISCHARGE SUMMARY: DATE OF ADMISSION: 05/11/16 DATE OF DISCHARGE: 05/15/16 PRIMARY CARE PROVIDER: Dr. Helm. PRINCIPAL DIAGNOSES: 1. Left-sided pyelonephritis secondary to Escherichia coli. 2. Escherichia coli bacteremia. SECONDARY DIAGNOSES: 1. Acute kidney injury - improving. 2. Diarrhea of unclear etiology - improving. 3. Hyponatremia - resolved. 4. Hypokalemia - resolved. 5. Moyamoya. 6. Hypertension. 7. History of past cerebrovascular accident. 8. 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 DISCHARGE MEDICATIONS: 1. Aspirin 325 mg p.o. daily. 2. Vitamin B12 of 1000 mcg p.o. daily. 3. Vitamin D3 of 1000 units p.o. daily. 4. Amlodipine 10 mg p.o. daily. 5. Singulair 10 mg p.o. q.h.s. p.r.n. allergy symptoms. 6. Probiotic align 4 mg p.o. daily. 7. Albuterol 2 puffs inhaled q.4 hours p.r.n. shortness of breath. 8. Losartan 100 mg p.o. daily. 9. Oxycodone 5 mg p.o. q.4 hours p.r.n. pain. 10. Cipro 500 mg p.o. b.i.d. x20 doses. HOSPITAL COURSE: Ms. Gr is a 50-year-old female with a history of moyamoya, past CVA, and hypertension who presented to the emergency room with complaints of malaise and fatigue, nausea, vomiting, watery diarrhea, fevers, chills, and rigors, increased frequency, urgency, and left-sided abdominal and flank pain. The patient in the emergency room was noted to have an abnormal urinalysis as well as tachycardia, leukocytosis, and acute kidney injury. The patient was presumed to have pyelonephritis and was admitted to the hospital for further evaluation and management. Ultimately, the patient's urine came back positive for E. coli. Three out of 4 blood culture bottles from admission also grew E. coli. This is pansensitive. The patient was on ceftriaxone while in the hospital. Followup blood cultures from 05/13/16 were negative for growth. It did take sometime for the patient to recover; however, she is feeling improved with no flank pain. She is stable and ready for discharge home. In terms of her pyelonephritis, to continue on Cipro 500 mg p.o. twice daily x10 more days. On admission, the patient was also complaining of diarrhea. It was concerning for a C. difficile colitis. Her C. difficile DNA amplification came back negative. She was initially on Flagyl, however, this was discontinued when this test returned negative. The patient was started on Imodium. She did have improvement in her diarrhea and currently states that she is having 3 very soft bowel movements per day. Overall, she is much improved; however, she will need to monitor her stools for profuse explosive diarrhea as the quinolone antibiotic can cause C. difficile colitis. In terms of the patient's chronic medical condition, she is going to be maintained on her usual home medication regimen. She is otherwise at baseline and ready to be discharged home today. FOLLOWUP CONCERNS: The patient is being discharged home today 05/15/16. She is to follow up with Dr. Helm in the next 4 to 7 days. ACTIVITY LEVEL: As tolerated. DIET: Low fat. CONDITION ON DISCHARGE: Stable. TIME SPENT: 35 minutes was spent discharging this patient. CC: Dr. Helm* [id number]/[facility] #: [id number] MTDD
--- NOTE | 2016-06-02 11:03 | ED ---
Janet Lee Erika, scribed for Brittnee Arellano MD on 05/11/16 at 2227 . Progress - Progress Note Progress Note: Patient already admitted to hospitalist by Dr. Gonzalez. Was pending CT A/P at shift change. CT A/P Read by Radiologist- IMPRESSION: 1. Cholelithiasis, unchanged. No CT of acute cholecystitis. 2. Mild obstructive findings on the left without evidence of calcified urolithiasis. Consider radiolucent calculus or recent passage of a calculus. Consider pyelonephritis given the mildly heterogeneous nephrogram. These imaging findings require correlation with clinical and laboratory findings. 3. 3 cm left adnexal cyst, unchanged Patient admitted to hospitalist stable. Course/Dx - Diagnoses Provider Diagnoses: UTI (urinary tract infection), Abdominal pain, Elevated troponin, Vomiting and diarrhea The documentation as recorded by the Janet suarez Erika accurately reflects the service I personally performed and the decisions made by Eileen truong Justine, MD.
== END 2016-05-15 14:40 | disposition home or self-care (01) | DRG 871 ==
LOC: ED 17:16 → MEDTELE 20:36
PROVIDERS: ADMIT Hospitalist; ATTEND Hospitalist
DX: A41.51 Sepsis due to Escherichia coli [E. coli] (principal); I21.4 Non-ST elevation (NSTEMI) myocardial infarction; N17.9 Acute kidney failure, unspecified; I67.5 Moyamoya disease; N10 Acute pyelonephritis; J44.1 Chronic obstructive pulmonary disease with (acute) exacerbation; E87.1 Hypo-osmolality and hyponatremia; Z68.42 Body mass index [BMI] 45.0-49.9, adult; R65.20 Severe sepsis without septic shock; B96.20 Unspecified Escherichia coli [E. coli] as the cause of diseases classified elsewhere; E87.6 Hypokalemia; I11.9 Hypertensive heart disease without heart failure; E66.01 Morbid (severe) obesity due to excess calories; I69.322 Dysarthria following cerebral infarction; Z79.82 Long term (current) use of aspirin; Z79.899 Other long term (current) drug therapy; Z88.1 Allergy status to other antibiotic agents; Z88.8 Allergy status to other drugs, medicaments and biological substances; Z87.891 Personal history of nicotine dependence; Z82.49 Family history of ischemic heart disease and other diseases of the circulatory system; Z80.0 Family history of malignant neoplasm of digestive organs
CPT/HCPCS: 36415; 71010; 74177; 76770; 80048; 80053; 81003; 81015; 82272; 82550; 82553; 83605; 83630; 83690; 83735; 84443; 84484; 85025; 85610; 86140; 87040; 87045; 87046; 87077; 87086; 87186; 87205; 87328; 87329; 87493; 87502; 87899; 93005; 93306; 94760; 99285; A9270-GY; J0696; J0744; J1644; J2405; J3480; Q9967

== ENCOUNTER 2018-06-24 15:25 | Inpatient (IN) | payer MEDICARE, OTHER ==
[2018-06-24] MEDS ORDERED: methylPREDNISolone 125 MG* 2 ML VIAL IV ONE (15:47)
[2018-06-24] MEDS ORDERED: Aspirin 81 mg CHEW TAB* 81 MG TAB.CHEW PO ONE (15:47)
[2018-06-24] MEDS ORDERED: Famotidine IV * 20 MG in NS 0.9% 100 ML* 100 ML IV ONE (15:54)
[2018-06-24] MEDS ORDERED: Lactated Ringers 1000 ML Bag* 1,000 ML IV SCH (16:00)
[2018-06-24] MEDS ORDERED: Albuterol/Ipratropium NEB.SOL* Albuterol 2.5 MG/Ipratropium 0.5 MG 3 ML ONE (16:00)
--- NOTE | 2018-06-24 16:01 | ED ---
Shortness of Breath - HPI Summary HPI Summary: 52 year old F presenting to [facility] by car complains of shortness of breath since 2 days ago, worse since this afternoon. Symptoms aggravated by nothing. Symptoms alleviated by nothing. Patient reports heart burn. Patient denies chest pain. Patient has hx asthma and is prescribed Flovent and Advair. Patient is a former smoker who quit 5 years ago. Patient had stress test 3 years ago that was normal. Patient has hx stroke 13 years ago. 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 - History of Current Complaint Chief Complaint: EDRespiratoryDistress Time Seen by Provider: 06/24/18 15:40 Hx Obtained From: Patient Onset/Duration: Lasting Days - 2, Still Present Timing: Constant Aggrevating Factors: Nothing Alleviating Factors: Nothing - Allergy/Home Medications Allergies/Adverse Reactions: Allergies Allergy/AdvReac Type Severity Reaction Status Date / Time azithromycin Allergy Rash Verified 06/24/18 15:33 celecoxib Allergy Rash Verified 06/24/18 15:33 Home Medications: Home Medications Aspirin EC TAB* [Ecotrin EC Low Dose 81 MG*] 81 mg PO DAILY 06/24/18 [History Confirmed 06/24/18] Fluticasone HFA 220 mcg(NF) [Flovent HFA 220 Mcg(NF)] 1 puff INH BID 06/24/18 [ History Confirmed 06/24/18] LoraTADine TAB(NF) [Claritin 10 MG TAB(NF)] 10 mg PO DAILY 06/24/18 [History Confirmed 06/24/18] Losartan TAB* [Cozaar TAB*] 100 mg PO DAILY 06/24/18 [History Confirmed 06/24/18 ] amLODIPine TAB* [Norvasc 5 mg TAB*] 10 mg PO DAILY 06/24/18 [History Confirmed 06/24/18] PMH/Surg Hx/FS Hx/Imm Hx Previously Healthy: No Endocrine/Hematology History: Denies: Hx Diabetes Cardiovascular History: Reports: Hx Angina, Hx Hypertension, Other Cardiovascular Problems/Disorders - CVA, villanueva villanueva, cerebral stenting Denies: Hx Congestive Heart Failure, Hx Pacemaker/ICD Respiratory History: Reports: Hx Asthma, Hx Chronic Obstructive Pulmonary Disease (COPD) - possible History: Reports: Other Problems/Disorders - cholecystitis Denies: Hx Renal Disease Sensory History: Reports: Hx Contacts or Glasses Denies: Hx Hearing Aid Opthamlomology History: Reports: Hx Contacts or Glasses Neurological History: 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 x2. cerebral stenting Hx Anesthesia Reactions: No Infectious Disease History: No Infectious Disease History: Denies: Traveled Outside the [place] in Last 30 Days - Family History Known Family History: Positive: Cardiac Disease - Social History Alcohol Use: Rare Hx Substance Use: No Substance Use Type: Reports: None Hx Tobacco Use: Yes Smoking Status (MU): Former Smoker Type: Cigarettes Have You Smoked in the Last Year: Yes Review of Systems Positive: Other - heart burn. Negative: Chest Pain Positive: Shortness Of Breath All Other Systems Reviewed And Are Negative: Yes Physical Exam - Summary Physical Exam Summary: Constitutional: Well-developed, Well-nourished, Alert. (-) Distressed Skin: Warm, Dry HENT: Normocephalic; Atraumatic. She has poor dentation. Eyes: Conjunctiva normal Neck: Musculoskeletal ROM normal neck. (-) JVD, (-) Stridor, (-) Tracheal deviation Cardio: Rhythm regular, rate normal, Heart sounds normal; Intact distal pulses; The pedal pulses are 2+ and symmetric. Radial pulses are 2+ and symmetric. Pulmonary/Chest wall: Lungs are minimally decreased, prolonged expiratory phase , faintly wheezes only at the bases, patient is tachypneic, patient has some increased work of breathing Abd: Soft, (-) tenderness, (-) Distension, (-) Guarding, (-) Rebound Musculoskeletal: (-) Edema Neuro: Alert, Oriented x3, Patient is post-stroke but able to articulate at baseline with clear thoughts but not clear speech. Psych: Mood and affect Normal Triage Information Reviewed: Yes Vital Signs On Initial Exam: Initial Vitals Temp Pulse Resp BP Pulse Ox 98.3 F 109 32 147/115 93 06/24/18 15:26 06/24/18 15:26 06/24/18 15:26 06/24/18 15:26 06/24/18 15:26 Vital Signs Reviewed: Yes Diagnostics - Vital Signs Vital Signs Temp Pulse Resp BP Pulse Ox 06/24/18 15:26 98.3 F 109 32 147/115 93 - Laboratory Result Diagrams: 06/24/18 16:23 06/24/18 16:23 Lab Statement: Any lab studies that have been ordered have been reviewed, and results considered in the medical decision making process. - EKG 1556 Summary of EKG Findings: Inferior lateral ST depressions that are old compared to 2017. Inferiorlateral TWI that are also old. ST elevations in AVR that is also old. Heart rate is borderline tachy at 99 BPM. QTc boderline but improved. Course/Dx - Course Course Of Treatment: 52 year old F presenting to [facility] complains of shortness of breath since 2 days ago, worse since this afternoon. Patient has hx asthma and is prescribed inhalers. In ED course, patient was given Aspirin, Solumedrol , Pepcid, and IV fluids. Labs are remarkable for troponin 2.56. Dr. Vargas, cardiology, is concerned with anticogulating patient because she has moyamoya which apparently required temporal artery bypass graft. Dr. Vargas recommends starting patient on Heparin and to not use Plavix in case she needs surgery d/t her hx aortic stenosis. Dr. Vargas requests neuro consult before starting her on Heparin to make sure it is okay in her condition. He says if neuro agrees, then he recommends admitting patient to hospitalist. Spoke with Dr. Ann, neurology, at 1724, who will find her neurosurgeon from [place]. Spoke with Dr. Gates, neurosurgery, at 1744, who said that as long as the surgery was more than a year ago, it is safe to start Heparin. Patient was given Heparin in ED course. Repeat troponin is 2.01. Troponin levels are coming down. Repeat EKG is unchanged. Spoke with Dr. Garcia, hospitalist, at 1839 who agrees to admit patient. The patient will be admitted to the hospitalist. THe patient is agreeable with this plan. - Diagnoses Provider Diagnoses: Non-STEMI (non-ST elevated myocardial infarction) - Physician Notifications Discussed Care of Patient With: Quique Vargas Time Discussed With Above Provider: 17:19 Instructed by Provider To: Other - Dr. Vargas, cardiology, is concerned with anticogulating patient because she has moyamoya which apparently required temporal artery bypass graft. Dr. Vargas recommends starting patient on Heparin and to not use Plavix in case she needs surgery d/t her hx aortic stenosis. Dr. Vargas requests neuro consult before starting her on Heparin to make sure it is okay in her condition. He says if neuro agrees, then he recommends admitting patient to hospitalist. Spoke with Dr. Ann, neurology, at 1724, who will find her neurosurgeon from [place]. Spoke with Dr. Gates, neurosurgery, at 1744 , who said that as long as the surgery was more than a year ago, it is safe to start Heparin. Dr. Garcia, hospitalist, agrees to admit patient at 1839. Discharge - Sign-Out/Discharge Documenting (check all that apply): Patient Departure - Admit Patient Received Moderate/Deep Sedation with Procedure: No - Discharge Plan Condition: Fair Disposition: ADMITTED TO [facility] Referrals: Jeri Helm MD [Primary Care Provider] - - Billing Disposition and Condition Condition: FAIR Disposition: Admitted to [facility] - Attestation Statements Documenting Scribe: Ann Marie Vazquez Provider For Whom Scribe is Documenting (Include Credential): Jameel Chua Scribe Documentation Reviewed: Yes
[2018-06-24] MEDS: Albuterol/Ipratropium NEB.SOL* Albuterol 2.5 MG/Ipratropium 0.5 MG 3 ML INH SCH (16:02)
[2018-06-24 16:38] LABS: ABS Basophils 0.1 10^3/ul (0-0.2); ABS Eosinophils 0.1 10^3/ul (0-0.6); ABS Lymphocytes 2.2 10^3/ul (1.0-4.8); ABS Monocytes 0.7 10^3/ul (0-0.8); ABS Neutrophils 8.1 10^3/ul (1.5-7.7); ABS Nucleated RBC 0 10^3/ul; Eosinophil % 0.7 %; Hematocrit 38 % (33-41); Hemoglobin 12.1 g/dL (12.0-16.0); Lymphocyte % 19.3 %; Mean Corpuscular HGB Conc 32 g/dL (31-36); Mean Corpuscular Hemoglobin 24 pg (27-31); Mean Corpuscular Volume 77 fL (80-97); Mean Platelet Volume 9.4 fL (7.4-10.4); Nucleated Red Blood Cells % 0; Platelet Count 256 10^3/uL (150-450); Red Blood Count 5.01 10^6 /uL (3.70-4.87); Red Cell Distribution Width 17 % (10.5-15); White Blood Count 11.2 10^3/uL (3.5-10.8)
[2018-06-24 16:46] LABS: Activated Partial Thrombo Time 32.1 seconds (26.0-36.3); INR 0.98 (0.77-1.02)
[2018-06-24 16:53] LABS: Troponin I 2.26 ng/mL (<0.04)
[2018-06-24 18:00] LABS: ALT 24 U/L (7-52); AST 26 U/L (13-39); Albumin 3.7 g/dL (3.2-5.2); Albumin/Globulin Ratio 1.2 (1-3); Alkaline Phosphatase 71 U/L (34-104); Anion Gap 11 mmol/L (2-11); BUN/Creatinine Ratio 18.9 (8-20); Blood Urea Nitrogen 14 mg/dL (6-24); CO2 Carbon Dioxide 24 mmol/L (22-32); Calcium 8.9 mg/dL (8.6-10.3); Chloride 107 mmol/L (101-111); EGFR Non-African American 81.8 (>60); Globulin 3.1 g/dL (2-4); Glucose 99 mg/dL (70-100); Sodium 142 mmol/L (135-145); Total Protein 6.8 g/dL (6.4-8.9)
[2018-06-24] MEDS ORDERED: Heparin DRIP 25,000 UNITS(*) 25,000 UNITS/500 ML BAG IV SCH (18:30)
[2018-06-24 18:35] LABS: Troponin I 2.01 ng/mL (<0.04)
[2018-06-24] MEDS ORDERED: Heparin VIAL(*) 5000 UNITS/ML VIAL (FIVE THOUSAND) ONE (20:06)
[2018-06-24] MEDS ORDERED: Heparin DRIP 25,000 UNITS(*) 25,000 UNITS/500 ML BAG ONE (20:07)
[2018-06-24] MEDS ORDERED: Albuterol 2.5 MG/3 ML NEB.SOL* (0.083%) INH PRN (20:43)
[2018-06-24] MEDS ORDERED: Acetaminophen TAB* 325 MG PO PRN (20:43)
[2018-06-24] MEDS ORDERED: Albuterol HFA INHALER* 8 gm MDI INH PRN (20:51)
[2018-06-24] MEDS ORDERED: Metoprolol Tartrate TAB* 25 MG ONE (21:35)
[2018-06-24] MEDS: Metoprolol Tartrate TAB* 25 MG PO SCH (21:38)
[2018-06-24] MEDS ORDERED: Heparin VIAL(*) 5000 UNITS/ML VIAL (FIVE THOUSAND) IV SCH (22:00)
[2018-06-24 22:14] LABS: Troponin I 1.37 ng/mL (<0.04)
--- NOTE | 2018-06-24 22:29 | HP ---
CC: Dr. Helm, [facility] * HISTORY AND PHYSICAL: DATE OF ADMISSION: 06/24/18 PROVIDER: Monica Oconnell NP. PRIMARY CARE PROVIDER: [facility], Dr. Helm. ATTENDING PHYSICIAN WHILE IN THE HOSPITAL: Judson Garcia MD * (dictated by Monica Oconnell NP). CHIEF COMPLAINT: Shortness of breath. HISTORY OF PRESENT ILLNESS: Ms. Gr is a 52-year-old female with past medical history significant for hypertension, history of CVA, COPD, asthma, moyamoya, heart murmur, and mildly decreased cognitive function, who presented to the emergency room with complaints of shortness of breath. The patient reports that she has been unable to catch her breath x2 days, and she has had increased heartburn that is relieved with belching. She reports that last night her shortness of breath was the worst. She was unable to sleep during the night. She reports that she used her inhalers several times with no relief. Due to these symptoms, she presented to the emergency room for further evaluation. The patient also reports that over the past 6 months, her shortness of breath has become progressively worse. The patient does not follow with Cardiology as an outpatient. The patient did have a transthoracic echocardiogram in 2017. At that time, her EF was 50% to 55%. She had mild-to- moderate mitral regurgitation and moderate aortic stenosis. While in the emergency room, the patient had routine lab works drawn. She was found to have a troponin of 2.26 on arrival to the emergency room. The patient was given some Solu-Medrol in the emergency room, IV fluids, and aspirin 162 mg p.o. She was started on a heparin drip. Due to her shortness of breath and elevated troponin and EKG changes, we were asked to see and evaluate her for admission. The patient denies any development of chest pain with exertion. The patient reports that she is able to walk up a flight of stairs, but she is winded when she gets to the top of the stairs, and daughter reports that the patient becomes very winded when bending forward and with activity that has progressively worsened in the past 6 months. PAST MEDICAL HISTORY: 1. Hypertension. 2. History of CVA. 3. History of COPD/asthma. 4. Moyamoya. 5. History of heart murmur. 6. Mildly decreased cognitive function. PAST SURGICAL HISTORY: 1. Cerebral stenting. 2. x2. HOME MEDICATIONS: 1. Aspirin 81 mg p.o. daily. 2. Norvasc 10 mg p.o. daily. 3. Losartan 100 mg p.o. daily. 4. Hydrochlorothiazide unknown dose. 5. Flovent inhaler 1 puff b.i.d. 6. Claritin 10 mg p.o. daily. 7. Albuterol HFA inhaler 2 puffs q.4 hours as needed. ALLERGIES: AZITHROMYCIN and CELECOXIB. FAMILY HISTORY: No reported history of coronary artery disease or diabetes. Mother with a history of stomach cancer. Father with lung cancer. SOCIAL HISTORY: The patient reports that she stopped smoking approximately 5 years ago. She does report occasional alcohol use. Denies any illicit drug use. She is . She lives alone. Surrogate decision maker in the event she is unable to make her own decisions is her son Jagdeep. She is a full code. REVIEW OF SYSTEMS: She denies any fever or unintended weight loss. Denies any weight gain. She denies any chest pain or edema. Denies any cough or hemoptysis. She does report shortness of breath. She does report occasional chronic dry cough. Denies any nausea, vomiting, diarrhea, abdominal pain, gross hematuria, dysuria, focal weakness, or sensory loss. Denies any visual complaints, dysphagia, arthralgias, myalgias, rashes, lesions, or open sores. Denies any psychosis or anxiety. PHYSICAL EXAMINATION GENERAL: At this time, Ms. rG is a 52-year-old female. She is resting on the stretcher in the emergency room. She does not appear to be in any acute distress. She is alert and oriented x3. VITAL SIGNS: Blood pressure 153/93, heart rate 87, respirations 18, O2 saturation 98%, temperature is 98.3. HEENT: Head is atraumatic, normocephalic. Eyes: EOMs are intact. Sclerae anicteric and not pale. Oral mucosa appeared to be moist. NECK: Supple. LUNGS: Diminished throughout bilaterally. CARDIAC: S1, S2. Regular rate and rhythm. She does have a systolic murmur. ABDOMEN: Obese, soft, nontender. Bowel sounds are present x4. EXTREMITIES: She is able to move all 4 extremities with 5/5 strength. Pedal pulses are +2 bilaterally. She does have mild lower extremity swelling, nonpitting. NEUROLOGIC: She is awake, alert, oriented x3. She does have a speech impediment and is difficult to understand. SKIN: Intact. LABORATORY DATA AND DIAGNOSTIC STUDIES: WBCs are 11.2, RBCs 5.01, hemoglobin 12.1, hematocrit 38, platelet count 256. INR 0.98. APTT 32.1. Sodium 142, potassium 4.0, chloride 107, carbon dioxide 24, anion gap 11, BUN was 14, creatinine 0.74, lactic acid was 1.6, glucose was 99, calcium 8.9. ASTs were 26 , ALTs were 24, alkaline phosphatase was 71. Troponin was 2.26, repeat was 2.01. BNP was 507. Chest x-ray showed no acute cardiopulmonary disease. She had electrocardiogram , which showed a sinus rhythm at a rate of 90. She has ST depressions in lead 1 , 2, V4, 5, 6 and aVF. She has T wave inversions in 1, 2, 3, aVF, V4, 5, and 6. These changes are similar to her EKG from 2017. ASSESSMENT AND PLAN: Ms. Gr is a 52-year-old female who presented to the emergency room with complaints of shortness of breath and heartburn worsening x2 days, found to have a non-ST elevation myocardial infarction. She will be admitted inpatient for: 1. Non-ST elevation myocardial infarction. I will place her on a heparin drip. She will have serial troponins. We will get a transthoracic echocardiogram in the morning. She will be placed on telemetry monitoring and monitored overnight in the ICU. She will also have metoprolol 25 mg p.o. b.i.d. She received aspirin 162 mg in the emergency room. I will get a lipid profile and a hemoglobin A1c. I have talked to Dr. Vargas from Cardiology who consulted on this patient. He recommended placing the patient on clear liquid diet, heparin drip, beta-ney, transthoracic echocardiogram in the morning and continue to trend troponins, and aspirin. 2. History of cerebrovascular accident. Continue on aspirin 81 mg p.o. daily. 3. Hypertension. She will continue on Norvasc, losartan, and I will add metoprolol 25 mg b.i.d. 4. Asthma. We will continue on albuterol inhaler and nebulizer as needed for shortness of breath and wheezing. 5. The patient will be placed on a clear liquid diet. 6. DVT prophylaxis: She is on a heparin drip. 7. Code status: She is a full code. TIME SPENT: Time spent on this admission was approximately 60 minutes, greater than half that time was spent at the bedside reviewing events leading thus far to her hospitalization, performing my physical exam, and implementing my plan of care. I have discussed this with my attending Dr. Judson Garcia. He is in agreement with my plan. MONICA OCONNELL, MANAGER OF INTERNAL AUDIT [id number]/CPS #: [id number]
[2018-06-25 06:31] LABS: ABS Basophils 0 10^3/ul (0-0.2); ABS Eosinophils 0 10^3/ul (0-0.6); ABS Lymphocytes 1.2 10^3/ul (1.0-4.8); ABS Monocytes 0.2 10^3/ul (0-0.8); ABS Neutrophils 9.4 10^3/ul (1.5-7.7); ABS Nucleated RBC 0 10^3/ul; Eosinophil % 0 %; Hematocrit 39 % (33-41); Hemoglobin 12.4 g/dL (12.0-16.0); Lymphocyte % 11.2 %; Mean Corpuscular HGB Conc 32 g/dL (31-36); Mean Corpuscular Hemoglobin 25 pg (27-31); Mean Corpuscular Volume 77 fL (80-97); Mean Platelet Volume 9.7 fL (7.4-10.4); Nucleated Red Blood Cells % 0; Platelet Count 284 10^3/uL (150-450); Red Blood Count 5.02 10^6 /uL (3.70-4.87); Red Cell Distribution Width 17 % (10.5-15); White Blood Count 10.8 10^3/uL (3.5-10.8)
[2018-06-25 06:54] LABS: BUN/Creatinine Ratio 24.3 (8-20); EGFR African American 105.5 (>60); EGFR Non-African American 87.2 (>60); HDL Cholesterol 43.9 mg/dL; Potassium 4.5 mmol/L (3.5-5.0)
[2018-06-25 07:07] LABS: TSH (Thyroid Stimulating Horm) 1.6 mcIU/mL (0.34-5.60)
[2018-06-25] MEDS ORDERED: Perflutren Lipid Microsphere* 3 ML VIAL ONE (08:17)
[2018-06-25] MEDS ORDERED: Aspirin EC TAB* 81 MG TAB.EC PO SCH (09:00)
[2018-06-25] MEDS ORDERED: Losartan TAB* 25 MG PO SCH (09:00)
[2018-06-25] MEDS ORDERED: amLODIPine TAB* 5 MG PO SCH (09:00)
[2018-06-25] MEDS: Metoprolol Tartrate TAB* 25 MG PO SCH (09:00)
--- NOTE | 2018-06-25 09:25 | PN ---
Subjective Date of Service: 06/25/18 Interval History: Pt is feeling ok currently. She states she last had chest pain which is described as "heart burn" 2 nights ago. She last felt severely SOB yesterday which prompted her presenting to the ER. No issues with bowel/bladder. Objective Active Medications: Acetaminophen (Tylenol Tab*) 650 mg PO Q4H PRN PRN Reason: FEVER/PAIN Albuterol (Ventolin 2.5 Mg/3 Ml Neb.Kayy*) 2.5 mg INH RT.[id number] AWAKE PRN PRN Reason: sob/wheezing Albuterol (Ventolin Hfa Inhaler*) 2 puff INH Q4H PRN PRN Reason: WHEEZING Amlodipine Besylate (Norvasc Tab*) 10 mg PO DAILY [facility] Aspirin (Aspirin Ec Tab*) 81 mg PO DAILY [facility] Atorvastatin Calcium (Lipitor*) 40 mg PO 2100 [facility] Heparin Sodium (Porcine) (Heparin Vial(*)) 0 units IV .PER PROTOCOL [facility] Heparin Sodium/Dextrose (Heparin Drip 25,000 Units(*)) 25,000 units in 500 mls @ 0 mls/hr IV PER RATE [facility]; Protocol Last Admin: 06/24/18 20:16 Dose: 20 mls/hr Losartan Potassium (Cozaar Tab*) 100 mg PO DAILY [facility] Metoprolol Tartrate (Lopressor Tab*) 25 mg PO BID [facility] Last Admin: 06/24/18 21:38 Dose: 25 mg Vital Signs - 8 hr 06/25/18 06/25/18 06/25/18 02:00 03:00 03:01 Temperature Pulse Rate 70 73 Respiratory 17 14 20 Rate Blood Pressure 147/62 (mmHg) O2 Sat by Pulse 96 97 Oximetry 06/25/18 06/25/18 06/25/18 04:00 04:01 05:00 Temperature 97.1 F Pulse Rate 71 74 Respiratory 18 15 23 Rate Blood Pressure 131/63 (mmHg) O2 Sat by Pulse 89 98 Oximetry 06/25/18 06/25/18 06/25/18 05:01 06:00 06:01 Temperature Pulse Rate 74 72 Respiratory 17 15 18 Rate Blood Pressure 141/66 (mmHg) O2 Sat by Pulse 97 98 Oximetry 06/25/18 06/25/18 06/25/18 06:31 07:01 08:00 Temperature 97.1 F Pulse Rate 66 74 72 Respiratory 14 18 14 Rate Blood Pressure 152/77 168/76 (mmHg) O2 Sat by Pulse 98 98 97 Oximetry 06/25/18 08:01 Temperature Pulse Rate 76 Respiratory 21 Rate Blood Pressure 180/72 (mmHg) O2 Sat by Pulse 97 Oximetry Oxygen Devices in Use Now: Nasal Cannula Appearance: Middle aged obese female sitting up in bed, NAD Eyes: No Scleral Icterus Ears/Nose/Mouth/Throat: Mucous Membranes Moist Respiratory: Symmetrical Chest Expansion and Respiratory Effort, Clear to Auscultation Cardiovascular: NL Sounds; No Murmurs; No JVD, RRR, No Edema Abdominal: NL Sounds; No Tenderness; No Distention Extremities: No Clubbing, Cyanosis Skin: No Nodules or Sclerosis Neurological: Alert and Oriented x 3, - - mildly dysarthric Result Diagrams: 06/25/18 06:05 06/25/18 06:05 Microbiology and Other Data: Microbiology 06/24/18 23:00 Nasal Screen MRSA (PCR) - Final Nasal Mrsa Not Detected Assess/Plan/Problems-Billing Ms Gr is a 52 yo F who has a h/o moyamoya, past CVA, bilateral internal carotid occlusions, HTN and COPD/asthma who presented to the ER with c/o SOB with exertion and ruled in for NSTEMI. - Patient Problems (1) NSTEMI (non-ST elevated myocardial infarction) Current Visit: Yes Status: Acute Code(s): I21.4 - NON-ST ELEVATION (NSTEMI) MYOCARDIAL INFARCTION SNOMED Code(s): 22410378 Comment: The patient's troponin was peaked on admission. Her last episode of pain however was the night prior to admission. She remains on a heparin drip, NPO, on ASA and metoprolol. Started lipitor 40mg qHS. Echo done but awaiting the read. Cardiology has seen the patient, await evaluation by Dr. Mcmullen. (2) HTN (hypertension) Current Visit: Yes Status: Acute Code(s): I10 - ESSENTIAL (PRIMARY) HYPERTENSION SNOMED Code(s): 91418193 Comment: BP has been moderately elevated. She has not had her morning medications yet. Monitor. (3) Moyamoya Current Visit: Yes Status: Acute Code(s): I67.5 - MOYAMOYA DISEASE SNOMED Code(s): 95723787 Comment: Noted, continue ASA. (4) DVT prophylaxis Current Visit: Yes Status: Acute Code(s): ELJ5292 - SNOMED Code(s): 519192534 Comment: heparin drip (5) Full code status Current Visit: Yes Status: Acute Code(s): Z78.9 - OTHER SPECIFIED HEALTH STATUS SNOMED Code(s): 157320042
[2018-06-25 09:30] LABS: CKMB ng/mL 14.3 ng/mL (0.6-6.3)
[2018-06-25] MEDS ORDERED: Metoprolol Tartrate IV* 1 MG/ML 5 ML VIAL IV ONE (11:02)
--- NOTE | 2018-06-25 11:06 | ECHO ---
Patient: NOÉ GROSSMAN [facility] [place] Rec#: [id number] : 1965 Date: 06/25/2018 Age: 52y Height: 157 cm / 61.8 in Weight: 130 kg / 286.5 lbs Sex: F BSA: 2.22 Room#: ICU 2 Admit Date#: 06/24/2018 Type: Inpatient Referring: [place] Reading: Jamar Walden MD First Crusher: Chantell Howard RDCS,RDMS CC: Jeri Helm MD Transthoracic Echocardiogram Indication: NSTEMI BP: 141/66 HR: 70 Rhythm: NSR Findings History: HTN, COPD, , CVA, moyamoya disease. Technical Comments: The study is technically limited due to the patient's history of COPD. Left Ventricle: The left ventricular chamber size is normal. Moderate to severe concentric left ventricular hypertrophy is observed. There is a focal wall motion abnormality present. The estimated ejection fraction is 50-55%. The assessment of diastolic function is non-diagnostic. The apical anterior, and apical inferior wall segments are hypokinetic (score 2). Overall wallmotion score index is 1.13 Left Atrium: The left atrial chamber size is normal. Right Ventricle: The right ventricular chamber size and systolic function are within normal limits. The right ventricle wall thickness is mildly increased. Right Atrium: The right atrial cavity size is normal. Aortic Valve: The aortic valve is trileaflet. The aortic valve leaflets are mildly thickened. There is aortic annular calcification. There is mild aortic regurgitation. There is mild to moderate aortic stenosis.The seems moderate by continuity but mild by 2d. The mean gradient of the aortic valve is 18 mmHg. The aortic valve area, by VTI's, is calculated at 1.2 cm2. Mitral Valve: There is mitral annular calcification. The mitral valve leaflets are mildly thickened. Mitral valve leaflet mobility is mildly restricted. There is a trace of mitral regurgitation. There is mild mitral stenosis. Tricuspid Valve: The tricuspid valve structure is not well visualized. There is no evidence of tricuspid valve regurgitation. Unable to estimate the right ventricular systolic pressure. Pulmonic Valve: There is no evidence of pulmonic valve thickening. There is no evidence of pulmonic regurgitation. Pericardium: There is no significant pericardial effusion. Aorta: The ascending aorta is not well visualized. There is no dilatation of the aortic arch. The aortic root is normal in size. Pulmonary Artery: The main pulmonary artery is not well visualized. Venous: The inferior vena cava is dilated. There is less than 50% respiratory change in the inferior vena cava dimension. Contrast: Definity was used to optimize study. A total of 2 ml was used. Conclusions Moderate to severe concentric left ventricular hypertrophy is observed. The estimated ejection fraction is 50-55%. There is a focal wall motion abnormality present. The assessment of diastolic function is non-diagnostic. Mitral valve leaflet mobility is mildly restricted. There is a trace of mitral regurgitation. There is mild mitral stenosis. There is mild aortic regurgitation. There is mild to moderate aortic stenosis. The seems moderate by continuity but mild by 2d. The aortic valve area, by VTI's, is calculated at 1.2 cm2. The right ventricle wall thickness is mildly increased. Similar to 04/2016 except that the apical wall motion abnormality was not mentioned and the mean aortic gradient was higher at 27 mmhg and the was graded as moderate. The calculated SLOAN are similar on the two studies. Measurements Name Value Normal Range RVIDd (AP) 2D 2.1 cm (0.9 - 2.6) RVDdMajor (2D) 2.3 cm (2.2 - 4.4) RAd ISD 4CH 4.4 cm (3.4 - 4.9) RA (A4C)W 3.7 cm (2.9 - 4.6) IVSd (2D) 1.4 cm (0.6 - 1) LVPWd (2D) 1.6 cm (0.6 - 1) LVIDd (2D) 5 cm (3.6 - 5.4) LVIDs (2D) 3.2 cm - LV FS (2D) 37 % (25 - 45) Aortic Annulus 2 cm (1.4 - 2.6) Ao root diameter (2D) 2.6 cm (2.1 - 3.5) Aortic arch 2.8 cm (1.8 - 3.4) LA dimension (AP) 2D 3.8 cm (2.3 - 3.8) LAd ISD 4CH 4.9 cm (2.9 - 5.3) LA ISD 4CH W 3.9 cm (2.5 - 4.5) Name Value Normal Range MV E-wave Vmax 1.6 m/sec - MV deceleration time 174 msec - MV A-wave Vmax 1 m/sec - MV E:A ratio 1.6 ratio - LV septal e' Vmax 0.05 m/sec - LV lateral e' Vmax 0.06 m/sec - LV E:e' septal ratio 32 ratio - LV E:e' lateral ratio 27 ratio - Name Value Normal Range AV Vmax 3 m/sec - AV VTI 64 cm - AV peak gradient 36 mmHg - AV mean gradient 18 mmHg - LVOT diameter 2 cm - LVOT Vmax 1 m/sec - LVOT VTI 25 cm - LVOT peak gradient 4 mmHg - LVOT mean gradient 3 mmHg - DOI (VTI) 0.4 ratio - SLOAN (continuity Vmax) 1 cm2 - SLOAN (continuity VTI) 1.2 cm2 - AR PHT 383 msec - Name Value Normal Range MV Vmax 1.8 m/sec - MV VTI 42 cm - MV peak gradient 13 mmHg - MV mean gradient 5 mmHg - MV PHT 82 msec - MVA (PHT) 2.7 cm2 - MVA (continuity VTI) 1.8 cm2 - Name Value Normal Range RAP 8 mmHg - IVC diameter 2.2 cm - Name Value Normal Range PV Vmax 0.9 m/sec - PV peak gradient 3.2 mmHg - Wallmotion BAS Normal BA Normal BAL Normal SANTIAGO Normal BI Normal BIS Normal MAS Normal MA Normal MAL Normal MIL Normal WV Normal MIS Normal Normal AA Hypokinetic AL Normal AI Hypokinetic APEX Hypokinetic
--- NOTE | 2018-06-25 13:09 | CONS ---
Amended report to enter cosigning physician. CONSULTATION REPORT: DATE OF CONSULT: 06/25/18 ATTENDING PHYSICIAN: Dr. Jamar Walden, Cardiology* (dictated by Taniya Arevalo NP). PRIMARY SAP FUNCTIONAL ANALYST: None. PRIMARY NEUROLOGIST: Historically Dr. Can at [facility]; however, the patient states she is to see Dr. Hicks in July for initial consultation. CHIEF COMPLAINT: Chest pain, shortness of breath. HISTORY OF PRESENT ILLNESS: This is a pleasant 52-year-old female patient with a notable history of hypertension, prior CVA, moyamoya disease, asthma, and mild -to- moderate aortic stenosis. She presented to [facility] on 06/24/18 around 4 p.m. due to progressive dyspnea on exertion and exertional chest discomfort described as burning like in sensation over the past 2 weeks. Apparently, she was told that she suffered from indigestion 2 years ago. However, her indigestion would historically be managed with Nexium. She states that 2 weeks ago, she started to note exertional sternal chest discomfort described as burning like in nature that would resolve with rest and reoccur with exertion. She states symptoms have been progressive in regards to intensity and frequency with associated dyspnea on exertion that would also improve with rest and would not improve with inhaler use. She opted for medical evaluation yesterday due to a "severe episode" 2 nights ago. She has had no recurrent chest pain since then. While being evaluated, cardiac enzymes were obtained. Troponin peaked at presentation at 2.26, ECG revealed diffuse ST-segment depression comparable to prior ECGs upon serial review dating back to 2014. She is admitted to the ICU for NSTEMI, was placed on IV heparin therapy, and we were asked to see here in consultation. The patient had echocardiogram performed this morning, which is currently pending. She offers no complaints at this time. Denies any recent illness or hospitalization. She is on aspirin 81 mg a day at home and states in the past, she has been able to tolerate aspirin and Plavix with her prior vertebral intervention. She denies any history of bleeding complications , denies history of requiring blood transfusion. Last ischemic evaluation via Lexiscan stress test in 2014, ECG was nondiagnostic per Radiology report. There was a small lateral wall reversible area of ischemia. Last echocardiogram was in 2016, at that time LVEF was 65% with moderate LVH, mild- to-moderate mitral regurgitation, scpp-sf-yfddtqit aortic stenosis, and mild-to- moderate aortic stenosis. Last imaging of carotid arteries appears to be March 2016 via neck MRA. Per Radiology report, bilateral occlusion of the internal carotid arteries, the level of the carotid artery bifurcation is unchanged, the dominant left vertebral artery. PAST MEDICAL HISTORY: Includes: 1. Hypertension 2. CVA. 3. Moyamoya. 4. Left ventricular hypertrophy. 5. Oinp-ug-lnhjwedr aortic stenosis. 6. Mild aortic insufficiency. 7. Carotid artery stenosis. 8. Former tobacco user. PAST SURGICAL HISTORY: Includes: 1. Left vertebral stent per report in 2010 2. Left internal carotid artery intervention [place] [address] Garcia. 3. Two C-sections. HOME MEDICATIONS: Includes: 1. Aspirin 81 mg a day. 2. Norvasc 10 mg a day. 3. Losartan 100 mg a day. 4. HCTZ unknown dose. 5. Flovent inhaler 1 puff b.i.d. 6. Claritin 10 mg a day. 7. Albuterol HFA inhaler 2 puffs q.4 h. p.r.n. ALLERGIES: Includes AZITHROMYCIN and CELECOXIB, both of which caused rash. She denies allergies to shellfish or contrast dye. FAMILY HISTORY: Mother due to complications of stomach cancer in her sixth decade. Father due to complications of lung cancer in his sixth decade. Denies any history of cardiovascular disease in first-degree relatives. SOCIAL HISTORY: The patient lives at home alone. She does not ambulate with any assist device. She is a former tobacco user. She smokes 1 pack per day for 30 years; however, she did quit 5 years ago. She rarely drinks alcohol. She denies illegal drug use. Denies using fbpu-uui-vkhfest medications. She tries to stay active babysitting her grandchildren. REVIEW OF SYSTEMS: All systems have been reviewed and otherwise negative except what is above mentioned in the HPI. PHYSICAL EXAM: Temperature is 97.1, heart rate 71, respirations 20, oxygenation 96% on 2 L nasal cannula, blood pressure 156/63. General: The patient is alert and oriented x3. She does have difficulty articulating herself due to complications from prior CVA. She is pleasant and cooperative with exam. HEENT: Head is atraumatic, normocephalic. Oral mucosa moist, tongue is midline. Neck: Supple. Trachea midline. Positive harsh right carotid bruit, soft left carotid bruit. No thyromegaly noted. Cardiac: Normal S1, S2. Regular rate and rhythm. 2/6 early systolic aortic valve murmur. No gallop or rub. Lungs auscultated posteriorly. Slight inspiratory wheezes noted throughout, otherwise no other adventitious breath sounds auscultated. /GI: Abdomen is obese, nontender, normoactive bowel sounds x4. Extremities: No pedal edema, no clubbing, no cyanosis. Peripheral: 2+ brachial and dorsalis pulses palpated bilaterally and symmetrically. DIAGNOSTIC STUDIES/LAB DATA: Sodium 137, potassium 4.5, chloride 107, carbon dioxide 24, BUN 17, creatinine 0.70, glucose 138. Troponin again peaked at 2.26 , 06/24/18. TSH 1.60. INR 0.98. White count 10.8, hemoglobin 12.4, hematocrit 39, platelets 284. Chest x-ray, 06/24/18, revealed no active cardiopulmonary disease per Radiology report. 06/25/18 ECG demonstrates normal sinus rhythm, rate 72, with known diffuse ST depression, does appear exaggerated compared to prior ECG. ASSESSMENT AND PLAN: 1. Hdm-PK-vtwxdwtlj myocardial infarction. Troponin peaked at 2.26 upon presentation. Symptomatology of severe chest pain or shortness of breath occurred 2 nights ago with no re-occurrence. She is currently asymptomatic on IV heparin, aspirin, statin, and beta-blockade therapy. 2. Echocardiogram is pending. She has a history of moyamoya with prior intervention to vertebral and left internal carotid artery, historically followed by Dr. Can. Given accelerating symptomatology of dyspnea on exertion and exertional chest pain described as burning like in nature, it has increased in regards to frequency and intensity in the past 2 weeks and prior abnormal Lexiscan stress test in 2014, with notable risk factors. We would like to proceed with left heart catheterization. However, given history of moyamoya, we have asked Dr. Jameel Ann to evaluate the patient in regards to safety of potential dual-antiplatelet therapy. We will await his recommendations. Continue medical therapy and we will monitor closely. 3. History of moyamoya with prior vertebral stenting in 2010 at [facility] and remote intervention to left internal carotid artery in 2003. Based on neck MRA in 2017, both bilateral carotid arteries are occluded. We have asked Dr. Jameel Ann to evaluate the patient in regards to safety potentially treating with dual-antiplatelet therapy. She is to establish care with Dr. Hicks in July of 2018. Denies neurological symptoms at this time. She is on aspirin therapy, historically tolerate aspirin and Plavix with no bleeding complications per the patient. 4. History of dyqi-fx-rxdkhxvg aortic stenosis with mild aortic insufficiency; await echocardiogram to evaluate valve gradients. The patient appears asymptomatic at this current time. 5. History of hypertension with moderate left ventricular hypertrophy on prior echocardiogram in 2017, blood pressure is elevated; however, given known bilateral carotid artery occlusion, I suspect she relies on posterior circulation. Recommend labile hypertension management at this time. Neurology is to see the patient as mentioned above. 6. Disposition pending course. Dr. Walden agrees the above assessment and plan. We will await Dr. Jameel Ann's input in regards to safety of potential dual- antiplatelet therapy in this high-risk patient given history of moyamoya with prior neurologic intervention. We will follow closely. If you have any questions or concerns, please feel free to contact our service. TANIYA AREVALO NP [id number]/[facility] #: [id number] HYACINTH
[2018-06-25] MEDS ORDERED: Heparin 2 UNITS/ML IVPREMIX* 2,000 UNIT/1,000 ML BAG IV ONE (13:48)
[2018-06-25] MEDS ORDERED: Lidocaine 1% INJ* 10 MG/ML 30 ML SDV ONE (13:48)
[2018-06-25] MEDS ORDERED: Iohexol 350 (CONTRAST) 200 ML MDV IV ONE ×2 (13:49→13:51)
[2018-06-25] MEDS ORDERED: fentaNYL* 50 MCG/ML 2 ML VIAL (100 MCG VIAL) ONE (13:56)
[2018-06-25] MEDS ORDERED: Midazolam* 1 MG/ML 5 ML VIAL (5 MG) ONE (13:57)
[2018-06-25] MEDS ORDERED: nitroGLYCERIN DRIP* 25,000 MCG/250 ML BTL ONE (15:20)
[2018-06-25] MEDS ORDERED: Heparin(*) 1000 UNIT/ML 10 ML VIAL CATH LAB IV ONE (15:38)
[2018-06-25] MEDS ORDERED: LORazepam INJ* 2 MG/ML 1 ML VIAL IV PUSH ONE (16:17)
[2018-06-25] MEDS ORDERED: LORazepam INJ* 2 MG/ML 1 ML VIAL ONE (16:18)
[2018-06-25] MEDS ORDERED: NS 0.9% 1000 ML** 1,000 ML IV SCH (16:30)
--- NOTE | 2018-06-25 16:53 | CONS ---
CONSULTATION REPORT: DATE OF CONSULT: 06/25/18 PATIENT OF: Dr. Mcmullen, Dr. Avalos, Dr. Can at [facility], and Dr. Helm. HISTORY OF PRESENT ILLNESS: Yenni is a 52-year-old woman, who has a past history of moyamoya syndrome presenting with stroke that left her with some word -finding problems and right facial droop after extensive speech therapy. She underwent a bypass procedure for the moyamoya on the left. They were concerned about the right side, but that was never thought necessary to be done; that procedure was the family said in 2010. I have called [place] [facility], and Dr. Torres reviewed her chart with me and Dr. Can, who has been following her for many years. The issue today is that she presents with myocardial infarction and needs cardiac cath with possible stent or CABG to follow and question is what is the best management for her. She has a past medical history of hypertension with stroke, COPD, asthma, moyamoya, heart murmur, and mildly decreased cognitive function. She has presented acutely with the HI and shortness of breath. PAST MEDICAL HISTORY: She is status post the stenting and x2. MEDICATIONS: At home, include: 1. Aspirin 81 mg daily. 2. Norvasc 10 mg daily. 3. Losartan 100 mg daily. 4. Hydrochlorothiazide. 5. Flovent 1 puff b.i.d. 6. Claritin 10 mg daily. 7. Albuterol 2 puffs q.4 hours p.r.n. as needed. ALLERGIES: Include AZITHROMYCIN and CELECOXIB. FAMILY HISTORY: She has no history of coronary artery disease or diabetes in the family. Father had lung cancer. SOCIAL HISTORY: She stopped smoking about 5 years ago. Occasional alcohol use. No drug use. REVIEW OF SYSTEMS: Negative in all 14 spheres other than shortness of breath. PHYSICAL EXAM: Blood pressure 181/79, pulse 76, respirations 25, temperature 97.1. She is alert and oriented. Speech was slightly slurred with mild hesitancy to her speech. Comprehension was good. Cranial nerves II through XII were normal other than she had a mild right facial weakness. Strength was 5 /5 bilaterally. Sensation intact to light touch. Chest: Clear. Cardiovascular : Regular rate and rhythm. Abdomen: Soft. LABORATORY DATA: Blood work includes white count 10.8, hematocrit 39, platelets of 204. Normal INR, normal PTT prior to heparinization. Normal CMP. LDL was 85. IMPRESSION: I discussed with Dr. Mcmullen and Dr. Walden, the family, and the patient that the richmojoshua putneri Hyman at risk for stroke and with her vascular abnormalities in the collateral, she would be at higher risk of hemorrhagic transformation than people with stroke due to other causes, and therefore aspirin and Plavix for a long time, the nurse practitioner said a year or more, would be a risk for this hemorrhagic transformation if the stroke were to occur. I discussed further with Dr. Walden and Dr. Mcmullen that with different stents and also with her risk for hemorrhagic transformation of stroke, they could limit the time that she would need aspirin and Plavix to at least 3 months , but at most 6 months' time. The other concern is that if she had needed a bypass because she could not get a stent, it could drop her blood pressure and put her at risk for stroke and in general more invasive procedure. I discussed the pros and cons and the risks and benefits with Dr. Torres in detail and we agreed that it would be permissible to have her on the aspirin and Plavix for a period of time after stent placement even though this is a relative contraindication. The options of CABG would pose different risks and issues. The family and other cardiologists are aware of this. Thank you for sharing her case. [id number]/[facility] #: [id number] HYACINTH
[2018-06-25] MEDS ORDERED: nitroGLYCERIN DRIP* 25,000 MCG/250 ML BTL IV SCH (17:00)
--- NOTE | 2018-06-25 17:35 | CATH ---
CC: Dr. Jamar Walden; Dr. Helm, [facility] CARDIAC CATHETERIZATION REPORT: DATE OF PROCEDURE: 06/25/18 INDICATION FOR PROCEDURE: Asked by Dr. Jamar Walden to perform coronary arteriography in light of the patient with a presentation of acute coronary syndrome and progressive severe chest pain, shortness of breath in a patient with moyamoya syndrome and a history of prior CVAs with a history of hypertension. PROCEDURE: Coronary arteriography, left heart catheterization. CONSENT: The patient was interviewed and examined in the intensive care unit with family present. She understood them and wished to proceed. APPROACH UTILIZED: Of note, given her moyamoya disease with totally occluded bilateral carotid arteries, I did not wish to proceed with a radial approach at the risk of damaging at all a vertebral artery, as such her groin area was assessed and she had a significant pannus. Unfortunately, I could not palpate any good pulses in the femoral area, but her distal pulses were intact. As such , I asked Dr. Pablo Ambrose, interventional radiologist, to help me gain access to the right femoral artery under ultrasound guidance. PRE-CARDIAC CATHETERIZATION LABORATORY RESULTS: Hemoglobin and hematocrit of 12.4 and 39, platelet count of 248,000. BUN and creatinine of 17 and 0.7, sodium 137, potassium 4.5, chloride 105, bicarb 24. EQUIPMENT UTILIZED: 1. The right femoral artery sheath was an Kristan 11 cm 5-Belgian sheath. 2. Diagnostic coronary catheters were a FL 3.5 curve and FL 4.0 curve 5-Belgian catheter and a 4.0 FR4 curve 5-Belgian right coronary catheter as well as a 5- Belgian multipurpose catheter. 3. Left heart catheterization catheter - a 5-Belgian 145-degree angled pigtail catheter. 4. The diagnostic guidewire was a 175 length J-tipped guidewire. MEDICATIONS GIVEN DURING THE PROCEDURE: Included: 1. 1% lidocaine. 2. At the end of the case, the patient received a 2000 units bolus and heparin was restarted at 1100 units per hour. 3. The patient also was placed on an IV nitroglycerin drip, which was increased to 4 mcg per minute. DESCRIPTION OF PROCEDURE: The patient was brought to the cardiovascular laboratory where a formal time-out was performed. Dr. Pablo Ambrose, interventional radiologist, used ultrasound guidance in the right femoral artery area to cannulate the right femoral artery with an anterior stick and placed the sheath. Following this, coronary arteriography was performed utilizing the diagnostic catheters. Of note, sub-selection injection was attempted, being made on multiple times in the left coronary artery due to dampening of the left coronary artery on introduction of the catheter into the left main. Following this, left heart catheterization was performed and pullback was performed. It should be noted that the pigtail catheter easily passed across the aortic valve on a first approach without even making a bend in the catheter. No straight wire or any type of support was needed. The total contrast used was 90 cc of Omnipaque dye. The radiation exposure included 14.6 minutes of fluoro time. The air kerma radiation was 2656 milligray. The DAP radiation was 17,247 microgray per meter squared. RESULTS: HEMODYNAMIC DATA: Left heart catheterization - central aortic pressure recorded at 197/83 with a mean of 127. Left ventricular pressure 210 over left ventricular end- diastolic pressure of 40. CORONARY ARTERIOGRAPHY: A. Left coronary artery: 1. Left main - of note, there was damping of the pressure on introduction of the catheter into the left main with no reflux produced. On sub -selective injection, there appeared to be a significant narrowing in the ostial to proximal left main of at least 80%. 2. Left anterior descending artery. The left anterior descending artery traversed to the apical region and onto the distal inferior wall. It supplied multiple diagonal branches. There was no significant lesion seen throughout the course of the vessel. 3. The circumflex artery was a nondominant vessel supplying 3 obtuse marginal branches. The proximal portion had mild haziness, but no focal critical lesion was seen. The rest of the branches had no significant obstruction. B. Right coronary artery - a dominant vessel supplying multiple acute marginal branches with a low-lying one paralleling the PDA supplying the distal inferior wall. The PDA itself was a small vessel as was the posterior left ventricular branch. There was an eccentric 40% lesion seen in the proximal to mid portion of the right coronary artery followed by an area of 35% to 40% narrowing prior to the artery turning onto the inferior surface of the heart. 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 Given the patient's history of progressive significant shortness of breath with exertion as well as chest tightness, I believe this is probably a real finding. This unfortunately will be a difficult decision on how to proceed given the fact that she has the moyamoya disease and has decreased perfusion through the carotids in general. She has established neurologists at [facility] in [place], [place], who we have already spoken to with our neurology consultants here and as such the family wants her transferred up there for further cardiac assessment. I will leave the sheath in place in case they want to perform IVUS to get a more definitive assessment. I discussed the case at length with Dr. Ottoniel Angulo , dining room supervisor accepting the patient to [facility] in [place] and I will email him the films so he can review as well. I explained all of this to the patient as well as the patient's family and at this point in time we will arrange for her to be transferred. Heparin was restarted in light of her right femoral artery sheath being left in place. IV Nitroglycerin was instituted for hypertension and probable ischemic induced increased LVEDP. [id number]/[facility] #: [id number] HYACINTH
--- NOTE | 2018-06-25 17:42 | TRS ---
CC: Dr. Helm * TRANSFER SUMMARY: DATE OF ADMISSION: 06/24/18 DATE OF TRANSFER: To [facility], 06/25/18. PRIMARY CARE PROVIDER: Dr. Helm. PRINCIPAL DIAGNOSIS: Non-ST elevation myocardial infarction with cardiac catheterization revealing left main disease. SECONDARY DIAGNOSES: 1. Moyamoya disease. 2. Hypertension. 3. History of cerebrovascular accident. 4. Chronic obstructive pulmonary disease/asthma. DISCHARGE MEDICATIONS: 1. Tylenol 650 mg p.o. q.4 hours p.r.n. pain. 2. Albuterol 1 neb inhaled q.4 hours p.r.n. shortness of breath. 3. Albuterol 2 puffs inhaled q.4 hours p.r.n. shortness of breath. 4. Amlodipine 10 mg p.o. daily. 5. Aspirin 81 mg p.o. daily. 6. Lipitor 40 mg p.o. q.h.s. 7. Heparin infusion at 1100 units per hour. 8. Losartan 100 mg p.o. daily. 9. Metoprolol tartrate 25 mg p.o. b.i.d. 10. Normal saline at 100 mL per hour. 11. Nitroglycerin infusion at 10 mcg per minute. HOSPITAL COURSE: Ms. Gr is a 52-year-old female who presented to the emergency room on 06/24/18 with complaints of severe shortness of breath. The patient states over the last couple of weeks she has been having increased symptoms of heartburn. She noted this with exertion. Over the last couple of days, however, she has had severe shortness of breath with any exertion. Because of the shortness of breath, she presented to the emergency room for evaluation. In the ER, the patient was found to have an elevated troponin of 2.26. Because of this, the patient was admitted on a heparin drip to the intensive care unit. Cardiology consultation was requested. Cardiology subsequently recommended cardiac catheterization. Given the patient's history of moyamoya disease, a discussion was held with Neurology about proceeding with catheterization and the possible use of dual antiplatelet therapy. Once that conversation occurred, the patient was taken to the cardiac catheterization lab. Per Dr. Mcmullen, the patient was found to have likely mild aortic stenosis. She was also found to have probable left main disease. He has subsequently left the sheath in place. She remains on a heparin drip. He also initiated a nitroglycerin infusion. At this point, the patient is feeling nervous. She is tearful. She feels short of breath. It is felt that this likely is a combination of her asthma and anxiety. Dr. Mcmullen because of the left main disease contacted Dr. Angulo, telephone sales representative at [facility] and discussed the case. Dr. Angulo has kindly accepted the patient in transfer. The question is whether or not the patient would be a stenting candidate versus bypass candidate. Because of this, she is going to [facility] for evaluation. The patient will continue on the heparin, nitroglycerin, and normal saline infusions at this time. FOLLOWUP CONCERNS: The patient is being transferred to [facility] today, 06/25/18. ACTIVITY LEVEL: Bedrest. CONDITION ON TRANSFER: Stable. DIET: NPO. TIME SPENT: 35 minutes was spent on this transfer. [id number]/[facility] #: [id number] MTDD
[2018-06-25 18:42] VITALS: BP 163/92
[2018-06-25] MEDS ORDERED: Atorvastatin* 40 MG TAB PO SCH (21:00)
== END 2018-06-25 18:30 | disposition short-term general hospital (02) | DRG 281 ==
LOC: ED 15:25 → ICU 20:11
PROVIDERS: ADMIT Internal Medicine; ATTEND Hospitalist
PROC: B2111ZZ Fluoroscopy of Multiple Coronary Arteries using Low Osmolar Contrast (ICD-10-PCS; 2018-06-25)
PROC: 4A023N7 Measurement of Cardiac Sampling and Pressure, Left Heart, Percutaneous Approach (ICD-10-PCS; principal; 2018-06-25 14:00)
DX: I21.4 Non-ST elevation (NSTEMI) myocardial infarction (principal); I67.5 Moyamoya disease; Z68.42 Body mass index [BMI] 45.0-49.9, adult; I25.10 Atherosclerotic heart disease of native coronary artery without angina pectoris; I10 Essential (primary) hypertension; J44.9 Chronic obstructive pulmonary disease, unspecified; I08.0 Rheumatic disorders of both mitral and aortic valves; F32.9 Major depressive disorder, single episode, unspecified; E66.9 Obesity, unspecified; G31.84 Mild cognitive impairment of uncertain or unknown etiology; F41.9 Anxiety disorder, unspecified; Z88.1 Allergy status to other antibiotic agents; Z88.8 Allergy status to other drugs, medicaments and biological substances; Z80.1 Family history of malignant neoplasm of trachea, bronchus and lung; Z80.0 Family history of malignant neoplasm of digestive organs; Z79.82 Long term (current) use of aspirin; Z86.73 Personal history of transient ischemic attack (TIA), and cerebral infarction without residual deficits; Z79.01 Long term (current) use of anticoagulants; Z87.891 Personal history of nicotine dependence
CPT/HCPCS: 36415; 71045; 76937; 80048; 80053; 80061; 82550; 82553; 83036; 83605; 83735; 83880; 84443; 84484; 85025; 85347; 85610; 85730; 87641; 93005; 93306; 93458; 99285; A9270-GY; C1887; C1894; C8929; J1644; J2060; J2250; J2930; J3010; J3490

== ENCOUNTER 2019-05-25 11:30 | Day surgery (SDC) | payer MEDICARE, MEDICAID ==
[~2019-05-25 11:30] MED LIST: Buffered Lidocaine 1% SYRIN* 1 ML/SYRINGE INTRADERM ONE; Dexamethasone IV* 4 MG/ML 1 ML (4 MG) IV SLOW PU ONE; DiMENhydriNATE IV* 50 MG/ML VIAL IV PUSH PRN; Famotidine IV* 10 MG/ML 2 ML (20 mg) IV ONE; Lactated Ringers 1000 ML Bag* 1,000 ML IV SCH; Levalbuterol 0.63MG/3ML NEB* UNIT OF USE INH ONE; Levalbuterol 0.63MG/3ML NEB* UNIT OF USE INH PRN; Naloxone* 0.4 MG/ML 1 ML VIAL IV PRN; Ondansetron ODT TAB* 4 MG PO ONE; PROCHLORPERAZINE INJ 5 MG/ML 2 ML VIAL IV PRN; fentaNYL* 50 MCG/ML 2 ML VIAL (100 MCG VIAL) IV PRN
[2019-05-25] MEDS ORDERED: Midazolam* 1 MG/ML 5 ML VIAL (5 MG) ONE (11:57)
[2019-05-25] MEDS ORDERED: KETAMINE HCL* 50 MG/ML 10 ML VIAL ONE (11:57)
[2019-05-25] MEDS ORDERED: Rocuronium* 10 MG/ML VIAL ONE (11:57)
[2019-05-25] MEDS ORDERED: fentaNYL* 50 MCG/ML 2 ML VIAL (100 MCG VIAL) ONE (11:57)
[2019-05-25] MEDS ORDERED: Famotidine IV* 10 MG/ML 2 ML (20 mg) ONE (12:17)
[2019-05-25] MEDS ORDERED: Ondansetron ODT TAB* 4 MG ONE (12:17)
[2019-05-25] MEDS ORDERED: Levalbuterol 0.63MG/3ML NEB* UNIT OF USE INH ONE (12:17)
[2019-05-25] MEDS ORDERED: Dexamethasone IV* 4 MG/ML 1 ML (4 MG) ONE (12:17)
[2019-05-25] MEDS ORDERED: Benzocaine/Butamben/Tetracain (CETACAINE - SINGLE USE) 5 gm TOPICAL ONE (12:31)
[2019-05-25] MEDS ORDERED: Sugammadex * 500 MG/5 ML VIAL IV PUSH ONE (13:35)
[2019-05-25] MEDS ORDERED: Propofol* 10 MG/ML 20 ML BTL ONE (13:35)
[2019-05-25] MEDS ORDERED: Lidocaine 2% PF * 5 ML VIAL ONE (13:35)
[2019-05-25] MEDS ORDERED: Phenylephrine 40 MCG/ML SYRINGE ONE (13:35)
[2019-05-25 15:45] VITALS: BP 121/68
--- NOTE | 2019-05-25 16:52 | BRIEFOPN ---
Brief Operative/Procedure Note - Operation Details Pre-Op Diagnosis: Lymphadenopathy Post-Op Diagnosis: Benign lymph nodes Procedures: Bronchoscopy/EBUS with TBNA of R4 and station 7 Surgeon(s)/Proceduralists: [place] Anesthesia: [place]- [place] Estimated Blood Loss: Negligable Findings: Normal lymph nodes, edematous airways with cobbles tone appearance. Specimen(s)/Culture(s) Description: EBBX, TBNA- R4, station 7 Complications: None
--- NOTE | 2019-05-26 01:28 | PRO ---
BRONCHOSCOPY REPORT: DATE OF PROCEDURE: 05/25/19 - [facility] PROCEDURE PERFORMED: Bronchoscopy with endobronchial ultrasound-guided fine needle aspiration of mediastinal node. PREPROCEDURAL DIAGNOSIS: Lymphadenopathy. ANESTHESIA: General anesthesia. ANESTHESIOLOGIST: Dr. Bush. DESCRIPTION OF PROCEDURE: Informed consent was obtained from the patient prior to the procedure after all the risks and benefits were thoroughly explained. The patient was intubated with 8.5 endotracheal tube. Appropriate time-out was performed and agreed on by the attending staff prior to the procedure. Informed consent was obtained from the patient prior to the procedure after all the risks and benefits were thoroughly explained. An Olympus bronchoscope was inserted through ET tube for airway inspection. No endobronchial lesions were noted. No significant secretions were noted. The patient noted to have airways that appeared to be irritated and bleeding with minimal suction trauma. The patient noted to have some cobblestoning appearance in the tertiary bronchi on both sides and some narrowing in the left lower lobe area from extrinsic compression/bronchomalacia. Bronchoscope was then withdrawn and EBUS bronchoscope was inserted. Station R4 was enlarged and was sampled with 2 passes. Rapid on-site evaluation revealed lymphatic tissue with no malignant cells. No granulomas noted. Station 7 was sampled also with 3 passes. Rapid on-site evaluation revealed lymphatic tissue with no malignant cells. Sample was also placed in CytoLyt. The patient had minimal bleeding which was suctioned out. Bronchoscope was then withdrawn and Olympus bronchoscope was reinserted for airway inspection and clearing of all the secretions. The patient tolerated the procedure well. The patient was extubated and seen in recovery in optimal condition. [id number]/[facility] #: [id number] MTDD
== END 2019-05-25 15:47 | disposition home or self-care (01) ==
LOC: OR 11:30
PROVIDERS: ATTEND Internal Medicine
DX: R59.0 Localized enlarged lymph nodes (principal); J44.9 Chronic obstructive pulmonary disease, unspecified; K21.9 Gastro-esophageal reflux disease without esophagitis; I11.9 Hypertensive heart disease without heart failure; F32.9 Major depressive disorder, single episode, unspecified; I25.10 Atherosclerotic heart disease of native coronary artery without angina pectoris; Z79.51 Long term (current) use of inhaled steroids; Z87.891 Personal history of nicotine dependence; Z88.1 Allergy status to other antibiotic agents
CPT/HCPCS: 88172; 88173; 88177; 88184; 88187; 88188; 88189; 88305; A9270-GY; J1100; J2250; J2704; J3010

== ENCOUNTER 2019-05-26 11:26 | Emergency (ER) | payer MEDICARE, MEDICAID ==
--- NOTE | 2019-05-26 11:33 | ED ---
HPI Chest Pain - HPI Summary HPI Summary: 53 year old F presenting to [facility] via EMS with a chief complaint of gradually onset chest pain and shortness of breath since this morning. The patient rates the pain 8/10 in severity. Symptoms aggravated by nothing. Symptoms alleviated by nothing. Patient denies nausea or diaphoresis. Per EMS she took a nitro today. Patient reports having a lung biopsy yesterday. She has a history of asthma, hypertension, an ID, and a CVA and has difficulty speaking secondary to her stroke. Medication list reviewed. Allergy list reviewed. Home Medications Medication Instructions Recorded Confirmed Type Albuterol HFA INHALER* [Ventolin 2 puff INH Q4H PRN 07/24/14 05/25/19 History HFA Inhaler*] Aspirin EC TAB* [Ecotrin EC Low 81 mg PO BEDTIME 06/24/18 05/25/19 History Dose 81 MG*] LoraTADine TAB(NF) [Claritin 10 MG 10 mg PO BEDTIME 06/24/18 05/25/19 History TAB(NF)] Losartan TAB* [Cozaar TAB*] 100 mg PO BEDTIME 06/24/18 05/25/19 History amLODIPine TAB* [Norvasc 5 mg TAB*] 10 mg PO BEDTIME 06/24/18 05/25/19 History Hydrochlorothiazide TAB* 25 mg PO QAM 04/04/19 05/25/19 History [Hydrodiuril TAB*] Albuterol 2.5MG/3ML (0.083%)* 2.5 mg INH Q4H PRN 05/18/19 05/25/19 History [Ventolin 2.5 MG/3 ML NEB.ABELARDO*] Famotidine [Pepcid] 20 mg PO BID 05/18/19 05/25/19 History Fluticasone-Salmeterol 250-50* 1 puff INH BID 05/18/19 05/25/19 History [Advair Diskus 250-50*] Rosuvastatin (NF) [Crestor (NF)] 20 mg PO BEDTIME 05/18/19 05/25/19 History Umeclidinium 62.5 MDI(NF) [Incruse 1 inh INH QAM 05/18/19 05/25/19 History ELLIPTA MDI (NF)] - History of Current Complaint Hx Obtained From: Patient, EMS Onset/Duration: Started Hours Ago Timing: Constant Aggravating Factor(s): Nothing Alleviating Factor(s): Nothing Associated Signs and Symptoms: Positive: Shortness of Breath. Negative: Diaphoresis, Nausea - Additional Pertinent History Primary Care Physician: DAVID - Allergy/Home Medications Allergies/Adverse Reactions: Allergies Allergy/AdvReac Type Severity Reaction Status Date / Time azithromycin Allergy Rash Verified 05/25/19 12:22 celecoxib Allergy Rash Verified 05/25/19 12:22 Home Medications: Home Medications RX: Albuterol HFA INHALER* [Ventolin HFA Inhaler*] 2 puff INH Q4H PRN 07/24/14 [ History Confirmed 05/26/19] Aspirin EC TAB* [Ecotrin EC Low Dose 81 MG*] 81 mg PO DAILY 06/24/18 [History Confirmed 05/26/19] LoraTADine TAB(NF) [Claritin 10 MG TAB(NF)] 10 mg PO DAILY 06/24/18 [History Confirmed 05/26/19] Losartan TAB* [Cozaar TAB*] 100 mg PO DAILY 06/24/18 [History Confirmed 05/26/19 ] amLODIPine TAB* [Norvasc 5 mg TAB*] 10 mg PO DAILY 06/24/18 [History Confirmed 05/26/19] Hydrochlorothiazide TAB* [Hydrodiuril TAB*] 25 mg PO QAM 04/04/19 [History Confirmed 05/26/19] Albuterol 2.5MG/3ML (0.083%)* [Ventolin 2.5 MG/3 ML NEB.ABELARDO*] 2.5 mg INH Q4H PRN 05/18/19 [History Confirmed 05/26/19] Famotidine [Pepcid] 20 - 40 mg PO BID 05/18/19 [History Confirmed 05/26/19] Fluticasone-Salmeterol 250-50* [Advair Diskus 250-50*] 1 puff INH BID 05/18/19 [ History Confirmed 05/26/19] Rosuvastatin (NF) [Crestor (NF)] 20 mg PO BEDTIME 05/18/19 [History Confirmed ] Umeclidinium 62.5 MDI(NF) [Incruse ELLIPTA MDI (NF)] 1 inh INH DAILY 05/18/19 [ History Confirmed 05/26/19] Metoprolol Tartrate TAB* [Lopressor TAB*] 100 mg PO BID 05/26/19 [History Confirmed 05/26/19] Montelukast Sodium TAB* [Singulair TAB*] 10 mg PO BEDTIME 05/26/19 [History Confirmed 05/26/19] RX: Nitroglycerin TAB 0.4 MG* 0.4 mg SL . NEEDED PRN 05/26/19 [History Confirmed 05/26/19] PMH/Surg Hx/FS Hx/Imm Hx Endocrine/Hematology History: Denies: Hx Bone Marrow Disease, Hx Diabetes, Hx Sickle Cell Disease, Hx Thyroid Disease, Hx Anemia Cardiovascular History: Reports: Hx Coronary Artery Disease, Hx Hypertension - ON MEDICATION, Hx Myocardial Infarction, Hx Valvular Heart Disease - AORTIC STENOSIS PER H&P, Other Cardiovascular Problems/Disorders - hx of ACUTE SUBENDOCARDIAL INFARCTION-PER H&P Denies: Hx Angina, Hx Congestive Heart Failure, Hx Hypercholesterolemia, Hx Pacemaker/ICD Respiratory History: Reports: Hx Asthma - ON INHALERS, Hx Chronic Obstructive Pulmonary Disease (COPD) - possible, Hx Sleep Apnea - HAS CPAP, TRYING TO GET USED TO IT., Other Respiratory Problems/Disorders - CHRONIC DYSPNEA ON EXERTION PER H&P, HISTORY OF SMOKING GI History: Reports: Hx Gastroesophageal Reflux Disease - ON FAMOTIDINE Denies: Other GI Disorders History: Reports: Other Problems/Disorders - *PER EMR ACUTE KIDNEY FAILURE AND PMH PYELONEPHRITIS-PT DENIES Denies: Hx Kidney Infection, Hx Kidney Stones, Hx Renal Disease Musculoskeletal History: Denies: Hx Arthritis, Hx Bursitis, Hx Tendonitis, Other Musculoskeletal History Sensory History: Reports: Hx Contacts or Glasses - GLASSES Denies: Hx Cataracts, Hx Glaucoma, Hx Hearing Aid Opthamlomology History: Reports: Hx Contacts or Glasses - GLASSES Denies: Hx Cataracts, Hx Glaucoma Neurological History: Reports: Hx CVA, Other Neuro Impairments/Disorders - HX OF CLAUSTROPHOBIA PER H&P Psychiatric History: Reports: Hx Depression - NO MEDS Denies: Hx Panic Disorder - Cancer History Hx Chemotherapy: No - Surgical History Surgery Procedure, Year, and Place: 10/2003 - BRAIN BYPASS - SUPERFICIAL TEMPORAL ARTERY REVASCULARIZATION - NO METAL SEE OP NOTE (SCANNED INTO EMR). C- section x 2. Cerebral Stenting Hx Anesthesia Reactions: No - Family History Known Family History: Positive: Cardiac Disease - Social History Alcohol Use: None Hx Substance Use: No Substance Use Type: Reports: None Hx Tobacco Use: Yes Smoking Status (MU): Former Smoker Type: Cigarettes Amount Used/How Often: 1 PPD X 30 YRS Have You Smoked in the Last Year: No Review of Systems Negative: Skin Diaphoresis Positive: Chest Pain Positive: Shortness Of Breath Negative: Nausea All Other Systems Reviewed And Are Negative: Yes Physical Exam - Summary Physical Exam Summary: Constitutional: Well-developed, Well-nourished, Alert. (-) Distressed Skin: Warm, Dry HENT: Normocephalic; Atraumatic Eyes: Conjunctiva normal Neck: Musculoskeletal ROM normal neck. (-) JVD, (-) Stridor, (-) Tracheal deviation Cardio: Rhythm regular, rate normal, Heart sounds normal; Intact distal pulses; Radial pulses are 2+ and symmetric. (-) Murmur Pulmonary/Chest wall: Effort normal. hyperventilating, (-) Wheezes, (-) Rales Abd: Soft, (-) tenderness, (-) Distension, (-) Guarding, (-) Rebound Musculoskeletal: (-) Edema; Good pulses bilaterally in radius, No calf tenderness, No venous cords, No pain with dorsiflexion of foot. Lymph: (-) Cervical adenopathy Neuro: Alert, Oriented x3 Psych: Mood and affect Normal Triage Information Reviewed: Yes Vital Signs Reviewed: Yes Procedures - Sedation Patient Received Moderate/Deep Sedation with Procedure: No Diagnostics - Laboratory Result Diagrams: 05/26/19 11:40 05/26/19 11:40 Lab Statement: Any lab studies that have been ordered have been reviewed, and results considered in the medical decision making process. - Radiology Chest x-ray Radiology Interpretation Completed By: Radiologist Summary of Radiographic Findings: NO ACTIVE CARDIOPULMONARY DISEASE IS NOTED. NO PNEUMOTHORAX IS IDENTIFIED. ED physician has reviewed this report. - CT Chest/Thorax CTA CT Interpretation Completed By: Radiologist Summary of CT Findings: #. Mildly limited CT pulmonary angiogram without evidence for pulmonary embolism. #. Nonspecific interstitial lung disease. Consider respiratory bronchiolitis interstitial. lung disease given history of tobacco use. #. Unchanged mild mediastinal and hilar lymphadenopathy. ED physician has reviewed this report. - EKG 11:26 Cardiac Rate: NL - 92 BPM Summary of EKG Findings: ST elevation in AVR and V1; ST depression in AVF; T- Wave inversion in V4-V6; unchanged from prior EKG on 06/24/18. ED physician has reviewed and interpreted this EKG. 12:31 Cardiac Rate: NL - 83 BPM EKG Rhythm: Sinus Rhythm Summary of EKG Findings: Unchanged from initial EKG. ED physician has reviewed and interpreted this report. Re-Evaluation - Re-Evaluation First Eval Re-Evaluation Time: 12:25 Comment: The patient has an elevated troponin. Will give her Aspirin and Trinitroglycerin. Her family said that she had an elevated troponin last year and was sent to [place] and had testing done with no known etiology. Second Eval Re-Evaluation Time: 12:45 Change: Unchanged Comment: Nitro did not help. Third Eval Re-Evaluation Time: 14:30 Comment: The patient does not want to go to [place] but she is calling her children to come talk to me. Chest Pain Course/Dx - Course Course Of Treatment: Patient is here 1 day after having an endobronchial biopsy of lymph nodes in her lung. Patient woke up this morning with severe shortness of breath and chest pain. Patient was brought in by EMS. Upon arrival, patient had an EKG which showed ST elevation in aVR with lateral depressions. This was unchanged from prior EKG although the appearance was concerning for ischemia. Patient had blood or performed which showed a troponin of 0.07. Given patient's shortness of breath and elevated troponin, a CTA was performed which showed no evidence of PE. Patient has been pneumothorax on chest x-ray or CT scan. Cardiology was called and evaluated patient's records in their system and recommended transferring to [facility] as she likely needs procedures performed there that we cannot perform here. Patient was started on a heparin drip at that time. Patient was also started on a nitroglycerin drip. Patient received aspirin here. Patient had a repeat troponin which showed an elevation of 2.11. Patient was accepted for transfer by the cardiology team at [place]. - Diagnoses Provider Diagnoses: NSTEMI (non-ST elevated myocardial infarction), Chest pain, Shortness of breath - Provider Notifications Discussed Care Of Patient With: Jeanette Justice Time Discussed With Above Provider: 14:18 Instructed by Provider To: Transfer - Discussed with Dr. Justice who recommends a transfer to [place]. [15:30] The patient will be transferred. Dr. Gary will accept the patient. Reason For Transfer: Specialty or service not available at [facility]. - Critical Care Time Critical Care Time: 75-104 min - 90 minutes Discharge ED - Sign-Out/Discharge Documenting (check all that apply): Patient Departure - Discharge Plan Condition: Stable Disposition: TRANS HIGHER LVL OF CARE FAC Referrals: Jeri Helm MD [Primary Care Provider] - - Billing Disposition and Condition Condition: STABLE Disposition: Trans Higher Lvl of Care Fac - Attestation Statements Document Initiated by Scribe: Yes Documenting Scribe: Dianne Andrade Provider For Whom Scribe is Documenting (Include Credential): Joey Blevins MD Scribe Attestation: Dianne Lee scribed for Joey Blevins MD on 05/26/19 at 1546. Scribe Documentation Reviewed: Yes Provider Attestation: The documentation as recorded by the Dianne suarez accurately reflects the service I personally performed and the decisions made by Joey truong MD Status of Scribe Document: Viewed
[2019-05-26] MEDS ORDERED: Morphine 4 MG/ML VIAL (1 ml) 4 MG/ML VIAL IV ONE ×2 (11:43→14:27)
[2019-05-26 11:47] LABS: ABS Monocytes 0.5 10^3/ul (0-0.8); ABS Neutrophils 15.7 10^3/ul (1.5-7.7); Hematocrit 40 % (35-47); Hemoglobin 12.8 g/dL (12.0-16.0); Lymphocyte % 5.6 %; Mean Corpuscular HGB Conc 32 g/dL (31-36); Mean Corpuscular Hemoglobin 24 pg (27-31); Mean Corpuscular Volume 76 fL (80-97); Mean Platelet Volume 9.9 fL (7.4-10.4); Platelet Count 255 10^3/uL (150-450); Red Blood Count 5.27 10^6 /uL (3.70-4.87); Red Cell Distribution Width 18 % (10-15); White Blood Count 17.2 10^3/uL (3.5-10.8)
[2019-05-26 12:05] LABS: ALT 17 U/L (7-52); AST 15 U/L (13-39); Albumin/Globulin Ratio 1.2 (1-3); Alkaline Phosphatase 51 U/L (34-104); Anion Gap 12 mmol/L (2-11); BUN/Creatinine Ratio 23.8 (8-20); Blood Urea Nitrogen 25 mg/dL (6-24); CO2 Carbon Dioxide 23 mmol/L (22-32); Calcium 9.6 mg/dL (8.6-10.3); Chloride 101 mmol/L (101-111); EGFR African American 65.8 (>60); EGFR Non-African American 54.4 (>60); Globulin 3.4 g/dL (2-4); Glucose 219 mg/dL (70-100); Potassium 3.5 mmol/L (3.5-5.0); Sodium 136 mmol/L (135-145); Total Protein 7.4 g/dL (6.4-8.9)
[2019-05-26 12:09] LABS: Troponin I 0.07 ng/mL (<0.03)
--- OUTSIDE RECORDS SUMMARY | 2019-05-26 12:13 | XMS REPORT | Continuity of Care Document ---
:1965 External Reference #:[id number] Author Name Pallavi Singh MD (transmitted by agent of provider Kate Carter) Address [address], [address] [place] [address] Care Team Providers Name Role Phone Jeri Helm MD - Family Care Team Information Swim Instructor [phone] Medicine Problems Active Problems Provider Date [place] disease Gagan Hicks M.D. Onset: 08/13/2018 Cerebral artery occlusion Gagan Hicks M.D. Onset: 08/13/2018 Chronic obstructive lung disease Gagan Hicks M.D. Onset: 08/13/2018 Acute subendocardial infarction Gagan Hicks M.D. Onset: 08/13/2018 Hypertensive heart disease without heart Gagan Hicks M.D. Onset: 2018 failure Social History Type Date Description Comments Sex Unknown Tobacco Use Start: Unknown End: Former Cigarette Smoker Unknown Smoking Status Reviewed: 05/10/19 Former Cigarette Smoker ETOH Use Rarely consumes alcohol Tobacco Use Start: Unknown End: Patient is a former 1 ppd x 30 years smoker Recreational Drug Use Denies Drug Use Exercise Type/Frequency Exercises sporadically Allergies, Adverse Reactions, Alerts Active Allergies Reaction Severity Comments Date Azithromycin 07/09/2018 Celecoxib 07/09/2018 Medications Active Medications SIG Qnty Indications Ordering Date Provider Hydrochlorothiazide 1 by mouth every 90tabs Quique Vargas, 25mg day DO FACC 9 Tablets Nitroglycerin 1 sl q5mins x3 25tabs Gagan 0.4mg Tablets Sub as needed for Aashish Hicks 9 chest pain if pain continues call 911 Metoprolol Tartrate Take one tablet Quique Vargas, 100mg by mouth twice DO FACC 9 Tablets daily Norvasc 1 by mouth every Unknown 10mg Tablets day 0 Aspirin 81 1 by mouth every Unknown 81mg Tablets DR day 0 Losartan Potassium 1 by mouth every Unknown 100mg day 0 Tablets Albuterol Sulfate HFA one puff every 6 Unknown hours 0 108(90Base) mcg/Act Aerosol Claritin 1 by mouth every Unknown 10mg Capsules day 0 Atorvastatin Calcium 1 by mouth every Unknown 80mg day 0 Tablets Flovent Diskus 1 inhalation by Unknown 100mcg/Blist mouth twice a 0 Aerosol day Montelukast Sodium 1 by mouth every Unknown 10mg Tablets day 0 Bupropion HCL ER (SR) 1 by mouth every Unknown 150mg day 0 Tablets ER 12HR Famotidine 1 by mouth twice Unknown 20mg Tablets a day 0 Immunizations Description No Information Available Vital Signs Date Vital Result Comment 05/10/2019 10:31am Height 62 inches 5'2" Weight 269.00 lb Heart Rate 78 /min BP Systolic Sitting 126 mmHg BP Diastolic Sitting 78 mmHg O2 % BldC Oximetry 97 % BMI (Body Mass Index) 49.2 kg/m2 04/13/2019 4:16pm Height 62 inches 5'2" Weight 267.00 lb with out shoes BP Systolic Sitting 120 mmHg Lue lg cuff BP Diastolic Sitting 74 mmHg Lue lg cuff BP Systolic Standing 136 mmHg Lue lg cuff BP Diastolic Standing 86 mmHg Lue lg cuff BMI (Body Mass Index) 48.8 kg/m2 Results Description No Information Available Procedures Date Code Description Status 04/13/2019 95455 EKG Tracing & Interpretation Completed 02/24/2019 58531 ECHO Transthorasic Realtime 2D W Doppler & Color Flow Hosp Completed 01/05/2019 51644 Diffusing Capacity Completed 01/05/2019 22768 Plethysmography Determination Lung Volumes & Per Airway Completed Resist 01/05/2019 09386 Pulmonary Stress Testing, Inc Measurement Heart Rate, Completed Oximetry 01/05/2019 45775 Pulmonary Function><Bronchodil Completed 12/09/2018 35696 Sleep Study Unattended,HRT Rate,Oxygen Sat,Resp Completed Effort/Airflow Medical Devices Description No Information Available Encounters Type Date Location Provider Dx Diagnosis Office Visit 04/13/2019 [facility] Quique Keith Z01.810 Encounter for 4:40p Of Purchasing Officer DO Sam [facility] preprocedural cardiovascular examination R59.0 Localized enlarged lymph nodes E66.9 Obesity, unspecified I35.2 Nonrheumatic aortic (valve) stenosis with insufficiency I25.10 Athscl heart disease of [place] coronary artery w/o ang pctrs I35.0 Nonrheumatic aortic (valve) stenosis F17.201 Nicotine dependence, unspecified, in remission I63.9 Cerebral infarction, unspecified 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 I25.2 Old myocardial infarction I10 Essential (primary) hypertension E66.8 Other obesity R47.01 Aphasia Office Visit 04/04/2019 10:30a [facility] Pallavi R59.0 Localized [facility] enlarged lymph Purchasing Officer nodes J45.909 Unspecified asthma, uncomplicated G47.33 Obstructive sleep apnea (adult) (pediatric) Office Visit 03/07/2019 3:00p [facility] Angelina R06.02 Shortness of [facility] William breath Purchasing Officer R93.89 Abnormal findings on dx imaging of oth body structures J45.909 Unspecified asthma, uncomplicated G47.33 Obstructive sleep apnea (adult) (pediatric) E66.9 Obesity, unspecified Z87.891 Personal history of nicotine dependence Z68.42 Body mass index (BMI) 45.0-49.9, adult J98.4 Other disorders of lung Office Visit 01/17/2019 1:40p [facility] Quique Keith I25.10 Athscl heart Of [facility] J Vargas disease of FAC [place] coronary artery w/o ang pctrs I35.0 Nonrheumatic aortic (valve) stenosis F17.201 Nicotine dependence, unspecified, in remission I63.9 Cerebral infarction, unspecified I67.5 Moy[place] disease I25.2 Old myocardial infarction I10 Essential (primary) hypertension I11.9 Hypertensive heart disease without heart failure J44.9 Chronic obstructive pulmonary disease, unspecified E66.8 Other obesity Office Visit 11/30/2018 2:00p [facility] Pall[facility] R06.02 Shortness of [facility] breath Purchasing Officer J45.909 Unspecified asthma, uncomplicated Z87.891 Personal history of nicotine dependence G47.9 Sleep disorder, unspecified Z12.2 Encntr screen for malignant neoplasm of respiratory organs Assessments Date Code Description Provider 05/10/2019 R59.0 Localized enlarged lymph nodes Pallavi Singh MD 05/10/2019 J45.909 Unspecified asthma, uncomplicated Pallavi Singh MD 05/04/2019 R59.0 Localized enlarged lymph nodes Pallavi Singh MD 04/13/2019 Z01.810 Encounter for preprocedural Quique Vargas, DO [facility] cardiovascular examination 04/13/2019 R59.0 Localized enlarged lymph nodes Quiqueellie Babbno, DO FAC 04/13/2019 E66.9 Obesity, unspecified Quiqueellie Vargas, DO [facility] 04/13/2019 I35.2 Nonrheumatic aortic (valve) stenosis with Quique Vargas, DO [facility] insufficiency 04/13/2019 I25.10 Atherosclerotic heart disease of [place] Quique Vargas, DO [facility] coronary artery without angina pectoris 04/13/2019 I35.0 Nonrheumatic aortic (valve) stenosis Quiqueellie Babbno, DO FAC 04/13/2019 F17.201 Nicotine dependence, unspecified, in Quique Vargas, DO [facility] remission 04/13/2019 I63.9 Cerebral infarction, unspecified Quique Vargas, DO FAC 04/13/2019 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 Quiqueellie Babbno, DO FAC 04/13/2019 I25.2 Old myocardial infarction Quiqueellie Babbno, DO FAC 04/13/2019 I10 Essential (primary) hypertension Quiqueellie Babbno, DO FAC 04/13/2019 E66.8 Other obesity Quique AndrewJo Vargas, DO FAC 04/13/2019 R47.01 Aphasia Quique AndrewJo Vargas, DO FAC 04/04/2019 R59.0 Localized enlarged lymph nodes Pallavi Singh MD 04/04/2019 J45.909 Unspecified asthma, uncomplicated Pallavi Singh MD 04/04/2019 G47.33 Obstructive sleep apnea (adult) Pallavi Singh MD (pediatric) 03/21/2019 J98.4 Other disorders of lung Pallavi Singh MD 03/07/2019 R06.02 Shortness of breath Angelina William NP 03/07/2019 R93.89 Abnormal findings on diagnostic imaging Angelina William NP of other specified body structures 03/07/2019 J45.909 Unspecified asthma, uncomplicated Angelina William NP 03/07/2019 G47.33 Obstructive sleep apnea (adult) Angelina William NP (pediatric) 03/07/2019 E66.9 Obesity, unspecified Angelina William NP 03/07/2019 Z87.891 Personal history of nicotine dependence Angelina William NP 03/07/2019 Z68.42 Body mass index (BMI) 45.0-49.9, adult Angelina William NP 03/07/2019 J98.4 Other disorders of lung Angelina William NP 02/24/2019 I35.2 Nonrheumatic aortic (valve) stenosis with Quique Vargas, DO FAC insufficiency 01/17/2019 I25.10 Atherosclerotic heart disease of [place] Quique Vargas, DO [facility] coronary artery without angina pectoris 01/17/2019 I35.0 Nonrheumatic aortic (valve) stenosis Quique Vargas, DO FAC 01/17/2019 F17.201 Nicotine dependence, unspecified, in Quique Vargas, DO FAC remission 01/17/2019 I63.9 Cerebral infarction, unspecified Quique Vargas DO FACC 01/17/2019 I67.5 [place]am[place] disease Quique Vargas DO FACC 01/17/2019 I25.2 Old myocardial infarction Quique Vargas DO FACC 01/17/2019 I10 Essential (primary) hypertension Quique Vargas, DO FACC 01/17/2019 I11.9 Hypertensive heart disease without heart Quique Vargas DO FACC failure 01/17/2019 J44.9 Chronic obstructive pulmonary disease, Quique Vargas DO FACC unspecified 01/17/2019 E66.8 Other obesity Quique Vargas DO FACC 01/05/2019 R06.02 Shortness of breath Pallavi Singh MD 12/09/2018 G47.33 Obstructive sleep apnea (adult) Pallavi Singh MD (pediatric) 11/30/2018 R06.02 Shortness of breath Pallavi Singh MD 11/30/2018 J45.909 Unspecified asthma, uncomplicated Pallavi Singh MD 11/30/2018 Z87.891 Personal history of nicotine dependence Pallavi Singh MD 11/30/2018 G47.9 Sleep disorder, unspecified Pallavi Singh MD 11/30/2018 Z12.2 Encounter for screening for malignant Pallavi Singh MD neoplasm of respiratory organs Plan of Treatment Future Appointment(s):06/09/2019 10:30 am - Pallavi Singh MD at [facility]05/25/2019 1:00 pm - Pallavi Singh MD at [facility]05/26/2019 3:45 pm - Gagan Hicks M.D. at [facility]05/10/2019 - Pallavi Singh, MDR59.0 Localized enlarged lymph nodesFollow up:2 kkowpI64.909 Unspecified asthma, uncomplicated Functional Status Description No Information Available Mental Status Description No Information Available Referrals Description No Information Available
--- OUTSIDE RECORDS SUMMARY | 2019-05-26 12:13 | XMS REPORT | Continuity of Care Document ---
:1965 External Reference #:[id number] Author Name Jeri Helm M.D. Address [address] [place] [address] Care Team Providers Name Role Phone Brenden Valentin MD Care Team Information Tar Processing Technician [phone] Cameron Travis MD - Neurology Care Team Information Tar Processing Technician Cornelio Can - Neurology Care Team Information Tar Processing Technician [phone] Karen Avalos DO - Internal Care Team Information Tar Processing Technician Unavailable Medicine Quique LeonardOJo - Care Team Information Tar Processing Technician [phone] Cardiovascular Disease Problems Active Problems Provider Date Essential hypertension Jeri Helm M.D. Onset: 09/03/2010 Tobacco user Jeri Helm M.D. Onset: 09/03/2010 Edema Jeri Helm M.D. Onset: 09/03/2010 Carpal tunnel syndrome Jeri Helm M.D. Onset: 09/03/2010 Essential hypertension Jeri Helm M.D. Onset: 11/30/2014 Social History Type Date Description Comments Sex Unknown Tobacco Use Start: Unknown End: Former Cigarette Smoker - quit 08/2013- started Unknown smoking around age 15, quit smoking age 47, h/o 30-32 years smoking, 1/2 ppd- 16 pack years Tobacco Use Start: Unknown End: Patient is a former smoker - quit 08/2013 with Unknown chantix Allergies, Adverse Reactions, Alerts Active Allergies Reaction Severity Comments Date Celebrex Hives 06/27/2004 Zithromax rash, itching 12/25/2012 Cipro Moderate Rash (Also On Oxycodone) 05/19/2016 Medications Active Medications SIG Qnty Indications Ordering Date Provider Famotidine 1-2 po twice a 120tabs Jeri P. 20mg Tablets day (instead of Alyse HelmDJo 9 zantac) for heartburn/ acid reflux Rosuvastatin Calcium Take One Tablet 30tabs E78.00 Jeri P. 20mg By Mouth AT Aashish Helm 9 Tablets Bedtime For Cholesterol Nebulizer use to deliver 1units J45.909 Jeri P. Kit/Tubing/Mouthpiece albuterol via Aashish Helm 9 Kit nebulizer every 4 hours as needed wheezing/ sob- dx- asthma j45.909 Albuterol Sulfate 1 vial via 75units J45.909 Jeri P. (2.5mg/3ML) nebulizer every 4 Aashish Helm 9 0.083% Nebulizer hours as needed for wheezing dx- asthma, j45.909 Spacer use as directed 1units J45.909 Jeri P. for inhaler Aashish Helm 9 j45.909 asthma Aspirin 1 by mouth every Jeri P. 81mg Chewtabs day for CT/ TIA Aashish Helm 9 Metoprolol Tartrate Take One Tablet 180tabs Jeri P. 100mg By Mouth Twice A Aashish Helm 9 Tablets Day For Blood Pressure And Heart Nitroglycerin 1 sublingual prn Jeri P. 0.4mg Tablets Sub chest pain, may Aashish Helm 9 repeat x 1 in 5 minutes as needed and call 911, sit or lie down when taking med Hydrochlorothiazide 1 by mouth every 30tabs I10 Jeri P. 25mg day in the Aashish Helm 8 Tablets morning for water pill/ blood pressure Loratadine (generic for Jeri PJo 10mg Tablets claritin)- 1 by Aashish Helm 8 mouth every day as needed allergies Amlodipine Besylate Take One Tablet 90tabs I10 Jeri P. 10mg By Mouth Every Blegen, M.D. 7 Tablets Day For High Blood Pressure Montelukast Sodium take 1 tablet by 90tabs Jeri P. 10mg Tablets mouth at bedtime Blegen M.D. 6 for allergy nose/ asthma symptoms Proair HFA 2 puffs every 4 1units Jeri P. 108(90Base) mcg/Act hours as needed Volodymyr M.DJo 3 Aerosol wheezing Losartan Potassium take one tablet 30tabs Jeri P. 100mg by mouth every Blegen, M.D. 0 Tablets day for blood pressure Advair Diskus Inhale 1 puff By Unknown 250-50mcg/Dose Mouth Two Times A 0 Aerosol Day Rinse Mouth After Use Incruse Ellipta inhale one puff 30units Jeri P. 62.5mcg/Inh by mouth every Blegen, M.D. 0 Aerosol day for chronic obstructive lung disease History Medications Famotidine 1 by mouth twice a 60tabs Jeri P. 02/26/2019 - 40mg Tablets day for Acid Blegen, M.D. 02/28/2019 Reflux Cyclobenzaprine HCL take 1/2-1 by 20tabs Jeri P. 01/19/2019 - 10mg mouth twice a day Blegen, M.D. 05/10/2019 Tablets as needed muscle spasm, causes drowsiness Immunizations CPT Code Status Date Vaccine Lot # [id number] Refused 12/21/2012 Td Age 7 to adult (Tenivac, Decavac, Sqeeqee ) [id number] Refused 12/21/2012 Influenza Vaccine-Preservative Free 3 Yrs And Above Vital Signs Date Vital Result Comment 05/10/2019 2:38pm Weight 268.00 lb Weight 121.565 kg BP Systolic 132 mmHg BP Diastolic 78 mmHg Heart Rate 78 /min Body Temperature 98.3 F Respiratory Rate 16 /min Height 63.5 inches 5'3.50" BMI (Body Mass Index) 46.7 kg/m2 O2 % BldC Oximetry 96 % 01/19/2019 3:36pm Weight 273.00 lb Weight 123.833 kg BP Systolic 124 mmHg BP Diastolic 86 mmHg Heart Rate 85 /min Body Temperature 99.2 F Respiratory Rate 18 /min O2 % dC Oximetry 97 % Results Test Acquired Date Facility Test Result H/L Range Note Comp Metabolic 05/10/2019 [facility] Sodium 138 mmol/ L Normal 135-145 Panel [phone] Potassium 3.5 mmol/L Normal 3.5-5.0 Chloride 100 mmol/L Low 101-111 Co2 Carbon Dioxide 28 mmol/L Normal 22-32 Anion Gap 10 mmol/L Normal 2-11 Glucose 103 mg/dL High 70-100 Blood Urea Nitrogen 26 mg/dL High 6-24 Creatinine 1.05 mg/dL High 0.51-0.95 BUN/Creatinine Ratio 24.8 High 8-20 Calcium 9.1 mg/dL Normal 8.6-10.3 Total Protein 7.2 g/dL Normal 6.4-8.9 Albumin 3.9 g/dL Normal 3.2-5.2 Globulin 3.3 g/dL Normal 2-4 Albumin/Globulin Ratio 1.2 Normal 1-3 Total Bilirubin 0.30 mg/dL Normal 0.2-1.0 Alkaline Phosphatase 63 U/L Normal 34-104 Alt 17 U/L Normal 7-52 Ast 16 U/L Normal 13-39 Egfr Non- 54.4 >60 Egfr 65.8 >60 1 Lipid Profile 05/10/2019 [facility] Triglycerides 135 mg/dL 2 (Trig/Chol/HDL) [phone] Cholesterol 113 mg/dL 3 HDL Cholesterol 33.2 mg/dL 4 LDL Cholesterol 53 mg/dL 5 Laboratory test 05/10/2019 [facility] Creatine 57 U/ L Normal 10-223 6 finding [phone] Kinase(CK) Vitamin B12 229 pg/mL Normal 180-914 7 CBC Auto 05/10/2019 [facility] White Blood 9.1 10^3/ uL Normal 3.5-10.8 Diff [phone] Count Red Blood Count 5.22 10^6/uL High 3.70-4.87 Hemoglobin 12.8 g/dL Normal 12.0-16.0 Hematocrit 39 % Normal 35-47 Mean Corpuscular Volume 74 fL Low 80-97 Mean Corpuscular Hemoglobin 25 pg Low 27-31 Mean Corpuscular HGB Conc 33 g/dL Normal 31-36 Red Cell Distribution Width 18 % High 10-15 Platelet Count 253 10^3/uL Normal 150-450 Mean Platelet Volume 10.0 fL Normal 7.4-10.4 Abs Neutrophils 6.6 10^3/uL Normal 1.5-7.7 Abs Lymphocytes 1.7 10^3/uL Normal 1.0-4.8 Abs Monocytes 0.6 10^3/uL Normal 0-0.8 Abs Eosinophils 0.2 10^3/uL Normal 0-0.6 Abs Basophils 0.0 10^3/uL Normal 0-0.2 Abs Nucleated RBC 0.0 10^3/uL Granulocyte % 72.3 % Lymphocyte % 18.7 % Monocyte % 6.4 % Eosinophil % 2.1 % Basophil % 0.5 % Nucleated Red Blood Cells % 0.1 Laboratory test 05/10/2019 [facility] Vitamin D 17.3 ng/mL Low 20-50 8 gxvcuza [phone] Total 25(Oh) 1 Because ethnic data is not always readily available, this report includes an eGFR for both -Americans and non- Americans. The National Kidney Disease Education Program (NKDEP) does not endorse the use of the MDRD equation for patients that are not between the ages of 18 and 70, are , have extremes of body size, muscle mass, or nutritional status, or are non- or non-. According to the National Kidney Foundation, irrespective of diagnosis, the stage of the disease is based on the level of kidney function: Stage Description GFR(mL/min/1.73 m(2)) 1 Kidney damage with normal or decreased GFR 90 2 Kidney damage with mild decrease in GFR 60-89 3 Moderate decrease in GFR 30-59 4 Severe decrease in GFR 15-29 5 Kidney failure <15 (or dialysis) 2 Desirable: <150 Borderline High: 150-199 High: 200-499 Very High: >500 3 Desirable: <200 Borderline High: 200-239 High: >239 4 Low: <40 Desirable: 40-60 High: >60 5 Desirable: <100 Near Optimal: 100-129 Borderline High: 130-159 High: 160-189 Very High: >189 6 [id number] Copy Result to: Quique LEONARD ([id number]) 7 Normal Range 180 to 914 Indeterminate Range 145 to 180 Deficient Range <145 8 Total 25-Hydroxyvitamin D2 and D3 (25-OH-VitD) <10 ng/mL (severe deficiency) 10-19 ng/mL (mild to moderate deficiency) 20-50 ng/mL (optimum levels) 51-80 ng/mL (increased risk of hypercalciuria) >80 ng/mL (toxicity possible) Procedures Description No Information Available Medical Devices Description No Information Available Encounters Type Date Location Provider Dx Diagnosis Office Visit 05/10/2019 Main Office Jeri Helm, Z00.00 Encntr for general 2:45p M.DJo adult medical exam w/o abnormal findings I10 Essential (primary) hypertension E78.00 Pure hypercholesterolemia, unspecified E53.8 Deficiency of other specified B group vitamins E55.9 Vitamin D deficiency, unspecified J45.909 Unspecified asthma, uncomplicated R12 Heartburn D48.5 Neoplasm of uncertain behavior of skin Office Visit 01/19/2019 3:30p Main Office Jeri Carver M54.5 Low back pain Aashish Helm Office Visit 12/01/2018 2:45p Main Office Jeri Carver J45.909 Unspecified asthma, Volodymyr MJoD. uncomplicated I10 Essential (primary) hypertension E78.00 Pure hypercholesterolemia, unspecified E53.8 Deficiency of other specified B group vitamins E55.9 Vitamin D deficiency, unspecified Assessments Date Code Description Provider 05/10/2019 Z00.00 Encounter for general adult medical Jeri Helm M.D. examination without abnormal findings 05/10/2019 I10 Essential (primary) hypertension Jeri Helm M.D. 05/10/2019 E78.00 Pure hypercholesterolemia, unspecified Jeri Helm M.D. 05/10/2019 E53.8 Deficiency of other specified B group Jeri Helm M.D. vitamins 05/10/2019 E55.9 Vitamin D deficiency, unspecified Jeri Helm M.D. 05/10/2019 J45.909 Unspecified asthma, uncomplicated Jeri Helm M.D. 05/10/2019 R12 Heartburn Jeri Helm M.D. 05/10/2019 D48.5 Neoplasm of uncertain behavior of skin Jeri Helm M.D. 01/19/2019 M54.5 Low back pain Jeri Helm M.D. 12/01/2018 J45.909 Unspecified asthma, uncomplicated Jeri Helm M.D. 12/01/2018 I10 Essential (primary) hypertension Jeri Helm M.D. 12/01/2018 E78.00 Pure hypercholesterolemia, unspecified Jeri Helm M.D. 12/01/2018 E53.8 Deficiency of other specified B group Jeri Helm M.D. vitamins 12/01/2018 E55.9 Vitamin D deficiency, unspecified Jeri Helm M.D. Plan of Treatment Future Appointment(s):09/08/2019 11:30 am - Jeri Helm M.D. at Main Rsef[facility]4105/10/2019 - Jeri Helm M.D.Z00.00 Encounter for general adult medical examination without abnormal findingsComments:HEALTH MAINTENANCE REMINDERS DISCUSSED. EMPHASIZED HEALTHY EATING, EXERCISE, CALCIUM INTAKE WITH DIET. DISCUSSED MONTHLY BSE, MAMMOGRAM RECOMMENDED AGAIN- PT AGAIN REFUSES. PT DECLINES FLU VACCINE, DECLINES TETANUS BOOSTER- AGREES TO GET TETANUS BOOSTER IF HAS DIRTY WOUND, DECLINES SHINGRIX.Follow up:.Recommendations:-- REMINDER TO SET UP APPOINTMENT WITH DENTIST -- SEE EYE DOCTOR -- I RECOMMEND FLU VACCINE EVERY YEAR IN THE FALL -- I RECOMMEND GETTING YOUR MAMMOGRAM DONE- LET ME KNOW IF YOU CHANGE YOUR MIND -- YOU ARE VERY OVERDUE FOR YOUR TETANUS SHOT- LET ME KNOW IF YOU CHANGE YOUR MIND -- IF YOUR LANDLORD DOES NOT TAKE CARE OF THE WATER ISSUES AND MILD IN BASEMENT- CALL THE HEALTH DEPARTMENT TO SEE WHAT THEY RECOMMEND -- WE WILL SET UP THE COLOGUARD FOR YOU AGAIN- YOU CAN BRING TO THE UPS IN [employer] [id number] Essential (primary) hypertensionFollow up:F/U SEPTEMBER 12 MIN- KAUR HTN, ASTHMA - EMRecommendations:-- CONTINUE THE LOSARTAN 100 MG ONCE PER DAY, AMLODIPINE 10 MG ONCE PER DAY, METOPROLOL 100 MG TWICEPER DAY AND THE HYDROCHLOROTHIAZIDE 25 MG IN THE MORNING -- KEEP UP THE EXCELLENT WORKWITH EATING BETTER, SMALLER PORTION SIZES AND NONMHFWZZHL13.00 Pure hypercholesterolemia, unspecifiedFollow up:.Recommendations:-- CONTINUE THE ROSUVASTATIN 20 MG AT NIGHT. -- WE WILL CHECK YOUR CHOLESTEROL UVPTGDFA07.8 Deficiency of other specified B group vitaminsComments:ENCOURAGED TAKE THE VITAMIN B12 SUPPLEMENT EVERY DAY. DISCUSSED IMPORTANCE OF KEEPING VITAMIN B12 IN NORMAL RANGE.Follow up:.Recommendations:-- TAKE THE VITAMIN B12 1000 MCG ONCE PER DAYE55.9 Vitamin D deficiency, unspecifiedComments:ENCOURAGED TAKE VITAMIN D REGULARLY, RISK OF VITAMIN D DEFICIENCY, BONE LOSS, ETC.Follow up: .Recommendations:-- TAKE THE VITAMIN D3 1000 IU PER DAY EVERY DAYJ45.909 Unspecified asthma, uncomplicatedComments:DOING WELL AND ASTHMA UNDER CONTROL. DISCUSSED IF NEEDING TO USE ALBUTEROL MORE THAN TWICE PER WEEK,TO RESUME THE INCRUSE AND ADVAIR PREVENTIVELY, OR IF GETS URI SX, TO START INCRUSE AND ADVAIR PREVENTIVELY. PT CONCERNED ABOUT THE WATER THAT COMES INTO THE BASEMENT AND THE MOLD IN THE BASEMENT. DISCUSSED MOLD DOES NOT TYPICALLY CAUSE ILLNESS BUT MAY CAUSE EXACERBATION OF ASTHMA IN SOME PEOPLE. ENCOURAGED HER TO CONTINUE TO WORK WITH HER LANDLORD ABOUT THE ISSUE, OTHERWISE HEALTH DEPT SHOULD BE GOOD RESOURCE.Follow up:-- EMRecommendations:-- CONTINUE MONTELUKAST/ SINGULAIR 10 MG PER NIGHT -- OK TO STILL USE THE ALBUTEROL INHALER OR THE ALBUTEROL NEBULIZER UP TO EVERY 4 HOURS NEEDED -- IF YOU ARE FEELING LIKE ASTHMA IS GETTING WORSEOR IF NEEDING THE ALBUTEROL/ PROAIR INHALER MORE THAN TWICE PER WEEK, RESUME THE INCRUSE ELLIPTA 1PUFF ONCE PER DAY AND THE ADVAIR INHALER 1 PUFF TWICE PER DAY, RINSE MOUTH AFTER -- CONTINUE LORATADINE/ CLARITIN 10 MG TABLET ONCE PER DAYR12 HeartburnFollow up:.Recommendations:-- CONTINUE TO AVOID EATING WITHIN 3 HOURS OF BEDTIME -- TAKE THE ASPIRIN WITH FOOD -- CONTINUE TO TAKE THE FAMOTIDINE/ PEPCID ACID MEHDI 20 MG TWICE PER DAYD48.5 Neoplasm of uncertain behavior of skinComments:ATYPICAL LESION RIGHT LOWER LEG, NOT RESOLVING- ? BCC OR SCC.Follow up:. -- REFER TO DR. TRICIA MURILLO FOR CONSULT ATYPICAL LESION RIGHT LOWER LEG- PT WANTS FEMALERecommendations:-- SEE PACKAGE LINER, DR. TRICIA MURILLO, FOR CONSULT ON ATYPICAL LESION RIGHT SARMIENTO Functional Status Description No Information Available Mental Status Description No Information Available Referrals Description No Information Available
--- OUTSIDE RECORDS SUMMARY | 2019-05-26 12:13 | XMS REPORT | Continuity of Care Document ---
:1965 External Reference #:[id number] Author Name Pallavi Singh MD (transmitted by agent of provider Yvonne Rodas) Address [address], [address] [place] [address] Care Team Providers Name Role Phone Jeri Helm MD - Family Care Team Information Ic Engineer [phone] Medicine Problems Active Problems Provider Date [place] [...] Former Cigarette Smoker Unknown Smoking Status Reviewed: 04/04/19 Former Cigarette Smoker ETOH Use Rarely consumes [...] Available Vital Signs Date Vital Result Comment 04/04/2019 10:13am Height 62 inches 5'2" Weight 266.12 lb Heart Rate 72 /min BP Systolic Sitting 152 mmHg Rue large cuff BP Diastolic Sitting 86 mmHg Rue large cuff O2 % BldC Oximetry 97 % On Ra BMI (Body Mass Index) 48.7 kg/m2 03/07/2019 2:44pm Height 62 inches 5'2" Weight 272.00 lb Heart Rate 80 /min BP Systolic Sitting 118 mmHg BP Diastolic Sitting 60 mmHg O2 % BldC Oximetry 97 % BMI (Body Mass Index) 49.7 kg/m2 Procedures Date Code Description Status 02/24/2019 93724 ECHO Transthorasic Realtime 2D W Doppler & Color Flow Hosp Completed 01/05/2019 27008 Diffusing Capacity Completed 01/05/2019 65551 Plethysmography Determination Lung Volumes & Per Airway Completed Resist 01/05/2019 08866 Pulmonary Stress Testing, Inc Measurement Heart Rate, Completed Oximetry 01/05/2019 24575 Pulmonary Function><Bronchodil Completed 12/09/2018 88253 Sleep Study Unattended,HRT Rate,Oxygen Sat,Resp Completed Effort/Airflow Medical Devices Description No Information Available Encounters Type Date Location Provider Dx Diagnosis Office Visit 03/07/2019 Pul[facility] And Angelina R06.02 Shortness of 3:00p [facility] William breath [facility] R93.89 Abnormal findings on dx imaging of oth body structures J45.909 Unspecified asthma, uncomplicated G47.33 Obstructive sleep apnea (adult) (pediatric) E66.9 Obesity, unspecified Z87.891 Personal history of nicotine dependence Z68.42 Body mass index (BMI) 45.0-49.9, adult J98.4 Other disorders of lung Office Visit 01/17/2019 1:40p [facility] Quique Keith 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, 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 I35.0 Nonrheumatic aortic (valve) stenosis F17.201 Nicotine dependence, unspecified, in remission I63.9 Cerebral infarction, unspecified I67.5 [place] disease I25.2 Old myocardial infarction I10 Essential (primary) hypertension I11.9 Hypertensive heart disease without heart failure J44.9 Chronic obstructive pulmonary disease, unspecified E66.8 Other obesity Office Visit 11/30/2018 2:00p Pulmonology And Pallavi R06.02 Shortness of [facility] [place] breath [facility] J45.909 Unspecified asthma, uncomplicated Z87.891 Personal history of nicotine dependence G47.9 Sleep disorder, unspecified Z12.2 Encntr screen for malignant neoplasm of respiratory organs Assessments Date Code Description Provider 04/04/2019 R59.0 Localized enlarged lymph nodes Pallavi [...] NP (pediatric) 03/07/2019 E66.9 Obesity, unspecified Angelina William, CANDY BUTCHER 03/07/2019 Z87.891 Personal history of nicotine dependence Angelina William, CANDY BUTCHER 03/07/2019 Z68.42 Body mass index (BMI) 45.0-49.9, adult Angelina William , CANDY BUTCHER 03/07/2019 J98.4 Other disorders of lung Angelina William, CANDY BUTCHER 02/24/2019 I35.2 Nonrheumatic aortic (valve) stenosis with Quique Babbno, DO FACC insufficiency 01/17/2019 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, 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 01/17/2019 I35.0 Nonrheumatic aortic (valve) stenosis Quique SJo Vargas, DO FACC 01/17/2019 F17.201 Nicotine dependence, unspecified, in Quique Vargas, DO FACC remission 01/17/2019 I63.9 Cerebral infarction, unspecified Quique Babbno, DO FACC 01/17/2019 I67.5 [place] disease Quiqueellie Babbno, DO FACC 01/17/2019 I25.2 Old myocardial infarction Quiqueellie Babbno, DO FACC 01/17/2019 I10 Essential (primary) hypertension Quique MoralesJo Vargas, DO FACC 01/17/2019 I11.9 Hypertensive heart disease without heart Quiqueellie Babbmarcella DO FACC failure 01/17/2019 J44.9 Chronic obstructive pulmonary disease, Quique Babbno, DO FAC unspecified 01/17/2019 E66.8 Other obesity Quique SJo Vargas, DO FACC 01/05/2019 R06.02 Shortness of breath [...] of respiratory organs Plan of Treatment Future Appointment(s):04/18/2019 12:00 pm - Pallavi Singh MD at [facility]04/06/2019 1:00 pm - Pallavi Singh MD at [facility]05/26/2019 3:45 pm - Gagan Hicks M.D. at [facility]04/04/2019 - Pallavi Singh, MDR59.0 Localized enlarged lymph nodesFollow up:2 hiicpR44.909 Unspecified asthma, ttvirryystsfsW54.33 Obstructive sleep apnea (adult) (pediatric) Functional Status Description No Information Available Mental Status Description No Information Available Referrals Description No Information Available
--- OUTSIDE RECORDS SUMMARY | 2019-05-26 12:13 | XMS REPORT | Continuity of Care Document ---
:1965 External Reference #:[id number] Author Name Jeri Helm M.D. (transmitted by agent of provider Lyudmila Rosas) Address [address] [place] [address] Care Team Providers Name Role Phone Brenden Valentin MD Care Team Information Probation Supervisor [phone] Cameron Travis MD - Neurology Care Team Information Probation Supervisor [phone] Cornelio Can - Neurology Care Team Information Probation Supervisor [phone] Karen Avalos DO - Internal Care Team Information Probation Supervisor Unavailable Medicine Quique Leonard D.O. - Care Team Information Probation Supervisor [phone] Cardiovascular Disease Problems Active Problems Provider Date [...] Jeri P. 20mg Tablets day (instead of BleLeslie desai.DJo 9 zantac) for heartburn/ acid reflux Rosuvastatin [...] every Jeri P. 81mg Chewtabs day for PA/ TIA Aashish Helm 9 Metoprolol Tartrate Take One Tablet 180tabs Jeri PJo 100mg By Mouth Twice A Aashish Helm [...] pill/ blood pressure Loratadine (generic for Jeri Carver 10mg Tablets claritin)- 1 by Blegen, M.D. 8 mouth every day as needed allergies Amlodipine Besylate Take One Tablet 90tabs I10 Jeri P. 10mg By Mouth Every Blegen, M.D. 7 Tablets Day For High Blood Pressure Montelukast Sodium take 1 tablet by 90tabs Jeri P. 10mg Tablets mouth at bedtime Volodymyr M.D. 6 for allergy nose/ asthma symptoms Proair HFA 2 puffs every 4 1units Jeri PJo 108(90Base) mcg/Act hours as needed Volodymyr M.DJo [...] 02/26/2019 - 40mg Tablets day for Acid Volodymyr M.DJo 02/28/2019 Reflux Cyclobenzaprine HCL take 1/2-1 by 20tabs Jeri P. 01/19/2019 - 10mg mouth twice a day Blegen, M.D. 05/10/2019 Tablets as needed muscle spasm, causes drowsiness Immunizations CPT Code Status Date Vaccine Lot # [id number] Refused 12/21/2012 Td Age 7 to adult (Tenivac, Decavac, [employer] ) 63672 Refused 12/21/2012 Influenza Vaccine-Preservative Free 3 Yrs [...] F Respiratory Rate 18 /min O2 % BldC Oximetry 97 % Results Test Acquired Date Facility Test Result H/L Range Note Comp Metabolic 05/10/2019 [facility] Sodium 138 mmol/ L Normal 135-145 Panel [phone] Potassium 3.5 mmol/L Normal 3.5-5.0 Chloride 100 [...] Egfr 65.8 >60 1 Lipid Profile 05/10/2019 [facility] Triglycerides 135 mg/dL 2 (Trig/Chol/HDL) [phone] Cholesterol 113 mg/dL 3 HDL Cholesterol 33.2 mg/dL 4 LDL Cholesterol 53 mg/dL 5 Laboratory test 05/10/2019 [facility] Creatine 57 U/ L Normal 10-223 6 finding [phone] Kinase(CK) Vitamin B12 229 pg/mL Normal 180-914 7 CBC Auto 05/10/2019 [facility] White Blood 9.1 10^3/ uL Normal 3.5-10.8 Diff [phone] Count Red Blood Count 5.22 10^6/uL High [...] Blood Cells % 0.1 Laboratory test 05/10/2019 [facility] Vitamin D 17.3 ng/mL Low 20-50 8 jqvlzyu [phone] Total 25(Oh) 1 Because ethnic data is [...] 130-159 High: 160-189 Very High: >189 6 [id number] Copy Result to: Quique LEONARD ([id number]) 7 Normal Range 180 to 914 Indeterminate [...] Jeri Helm, Z00.00 Encntr for general 2:45p M.D. adult medical exam w/o abnormal findings I10 Essential (primary) hypertension E78.00 Pure hypercholesterolemia, unspecified E53.8 Deficiency of other specified B group vitamins E55.9 Vitamin D deficiency, unspecified J45.909 Unspecified asthma, uncomplicated R12 Heartburn D48.5 Neoplasm of uncertain behavior of skin Office Visit 01/19/2019 3:30p Main Office Jeri Carver M54.5 Low back pain Aashish Helm Office Visit 12/01/2018 2:45p Main Office eJri Carver J45.909 Unspecified asthma, Aashish Helm uncomplicated I10 Essential (primary) hypertension E78.00 Pure [...] am - Jeri Helm M.D. at Main Spa[facility]j9005/10/2019 - Jeri Helm M.D.Z00.00 Encounter for general [...] YOU CAN BRING TO THE UPS IN [employer] [id number] Essential (primary) hypertensionFollow up:F/U SEPTEMBER 12 MIN- KAUR HTN, ASTHMA - EMRecommendations:-- CONTINUE THE LOSARTAN 100 MG ONCE PER DAY, AMLODIPINE 10 MG ONCE PER DAY, METOPROLOL 100 MG TWICEPER DAY AND THE HYDROCHLOROTHIAZIDE 25 MG IN THE MORNING -- KEEP UP THE EXCELLENT WORKWITH EATING BETTER, SMALLER PORTION SIZES AND GKLMCXBKSBQ33.00 Pure hypercholesterolemia, unspecifiedFollow up:.Recommendations:-- CONTINUE THE ROSUVASTATIN 20 MG AT NIGHT. -- WE WILL CHECK YOUR CHOLESTEROL ACENBPZP69.8 Deficiency of other specified B group vitaminsComments:ENCOURAGED [...] RIGHT LOWER LEG- PT WANTS FEMALERecommendations:-- SEE VOCATIONAL NURSE LVN, DR. TRICIA MURILLO, FOR CONSULT ON ATYPICAL LESION RIGHT SARMIENTO Functional Status Description No Information Available Mental Status Description No Information Available Referrals Description No Information Available
--- OUTSIDE RECORDS SUMMARY | 2019-05-26 12:13 | XMS REPORT | Continuity of Care Document ---
:1965 External Reference #:[id number] Author Name Quique Vargas, DO FACC (transmitted by agent of provider Maria Fernanda Bettencourt) Address [address] [place] [address] Care Team Providers Name Role Phone Jeri Helm MD - Family Care Team Information Grader Operator [phone] Medicine Problems Active Problems Provider Date [place] [...] Former Cigarette Smoker Unknown Smoking Status Reviewed: 04/13/19 Former Cigarette Smoker ETOH Use Rarely consumes [...] Metoprolol Tartrate Take one tablet Quique Vargas, 04/28/201 100mg by mouth twice DO FACC 9 [...] Available Vital Signs Date Vital Result Comment 04/13/2019 4:16pm Height 62 inches 5'2" Weight 267.00 lb with out shoes BP Systolic Sitting 120 mmHg Lue lg cuff BP Diastolic Sitting 74 mmHg Lue lg cuff BP Systolic Standing 136 mmHg Lue lg cuff BP Diastolic Standing 86 mmHg Lue lg cuff BMI (Body Mass Index) 48.8 kg/m2 04/04/2019 10:13am Height 62 inches 5'2" Weight 266.12 lb Heart Rate 72 /min BP Systolic Sitting 152 mmHg Rue large cuff BP Diastolic Sitting 86 mmHg Rue large cuff O2 % BldC Oximetry 97 % On Ra BMI (Body Mass Index) 48.7 kg/m2 Results Description No Information Available Procedures Date Code Description Status 04/13/2019 91872 EKG Tracing & Interpretation Completed 02/24/2019 70439 ECHO Transthorasic Realtime 2D W Doppler & Color Flow Hosp Completed 01/05/2019 02912 Diffusing Capacity Completed 01/05/2019 77393 Plethysmography Determination Lung Volumes & Per Airway Completed Resist 01/05/2019 18320 Pulmonary Stress Testing, Inc Measurement Heart Rate, Completed Oximetry 01/05/2019 46963 Pulmonary Function><Bronchodil Completed 12/09/2018 49541 Sleep Study Unattended,HRT Rate,Oxygen Sat,Resp Completed Effort/Airflow Medical Devices Description No Information Available Encounters Type Date Location Provider Dx Diagnosis Office Visit 04/04/2019 Pulmonology And Pallavi Singh, R59.0 Localized 10:30a [facility] enlarged lymph [employer] nodes J45.909 Unspecified asthma, uncomplicated G47.33 Obstructive sleep apnea (adult) (pediatric) Office Visit 03/07/2019 3:00p Pulmonology And Angelina R06.02 Shortness of [facility] ALHAJI William breath [employer] R93.89 Abnormal findings on dx imaging of oth body structures J45.909 Unspecified asthma, uncomplicated G47.33 Obstructive sleep apnea (adult) (pediatric) E66.9 Obesity, unspecified Z87.891 Personal history of nicotine dependence Z68.42 Body mass index (BMI) 45.0-49.9, adult J98.4 Other disorders of lung Office Visit 01/17/2019 1:40p [facility] Quique Keith 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 I35.0 Nonrheumatic aortic (valve) stenosis F17.201 Nicotine dependence, unspecified, in remission I63.9 Cerebral infarction, unspecified I67.5 [place] disease I25.2 Old myocardial infarction I10 Essential (primary) hypertension I11.9 Hypertensive heart disease without heart failure J44.9 Chronic obstructive pulmonary disease, unspecified E66.8 Other obesity Office Visit 11/30/2018 2:00p Pulmonology And Pallavi R06.02 Shortness of [facility] [place] breath [employer] J45.909 Unspecified asthma, uncomplicated Z87.891 Personal history of nicotine dependence G47.9 Sleep disorder, unspecified Z12.2 Encntr screen for malignant neoplasm of respiratory organs Assessments Date Code Description Provider 04/13/2019 Z01.810 Encounter for preprocedural Quique Vargas DO [facility] cardiovascular examination 04/04/2019 R59.0 Localized enlarged lymph nodes Pallavi [...] Body mass index (BMI) 45.0-49.9, adult Angelina Wliliam NP 03/07/2019 J98.4 Other disorders of lung Angelina William NP 02/24/2019 I35.2 Nonrheumatic aortic (valve) stenosis with Quique Vargas, DO [facility] insufficiency 01/17/2019 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, 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 01/17/2019 I35.0 Nonrheumatic aortic (valve) stenosis Quique Vargas, DO FAC 01/17/2019 F17.201 Nicotine dependence, unspecified, in Quique Vargas, DO FAC remission 01/17/2019 I63.9 Cerebral infarction, unspecified Quique Vargas, DO FACC 01/17/2019 I67.5 [place] disease Quique Vargas, DO FACC 01/17/2019 I25.2 Old myocardial infarction Quique Vargas DO FACC 01/17/2019 I10 Essential (primary) hypertension Quique Vargas, DO FACC 01/17/2019 I11.9 Hypertensive heart disease without heart Quique Vargas DO FAC failure 01/17/2019 J44.9 Chronic obstructive pulmonary disease, Quique Vargas, DO FAC unspecified 01/17/2019 E66.8 Other obesity Quique Vargas DO FACC 01/05/2019 R06.02 Shortness of breath Pallavi Singh MD 12/09/2018 G47.33 Obstructive sleep apnea (adult) Pallavi Singh MD (pediatric) 11/30/2018 R06.02 Shortness of breath Pallavi Singh MD 11/30/2018 J45.909 Unspecified asthma, uncomplicated aPllavi Singh MD 11/30/2018 Z87.891 Personal history of nicotine dependence Pallavi Singh MD 11/30/2018 G47.9 Sleep disorder, unspecified Pallavi Singh MD 11/30/2018 Z12.2 Encounter for screening for malignant Pallavi Singh MD neoplasm of respiratory organs Plan of Treatment Future Appointment(s):04/18/2019 12:00 pm - Pallavi Singh MD at [facility]05/26/2019 3:45 pm - Gagan Hicks M.D. at [facility]04/13/2019 - Quique Vargas DO FACCZ01.810 Encounter for preprocedural cardiovascular examinationFollow up:january f/ u plans Functional Status Description No Information Available Mental Status Description No Information Available Referrals Description No Information Available
[2019-05-26] MEDS ORDERED: Nitroglycerin TAB 0.4 MG* 0.4 MG TAB ONE (12:18)
[2019-05-26] MEDS ORDERED: Nitroglycerin TAB 0.4 MG* 0.4 MG TAB SL ONE (12:18)
[2019-05-26] MEDS ORDERED: Aspirin 81 mg CHEW TAB* 81 MG TAB.CHEW PO ONE (12:18)
[2019-05-26] MEDS ORDERED: Aspirin 81 mg CHEW TAB* 81 MG TAB.CHEW ONE (12:18)
[2019-05-26] MEDS ORDERED: Iodixanol* (CONTRAST) 320 MG/ML 100 ML SDV IV ONE (12:29)
[2019-05-26] MEDS ORDERED: Albuterol/Ipratropium NEB.SOL* Albuterol 2.5 MG/Ipratropium 0.5 MG 3 ML INH ONE (12:45)
[2019-05-26] MEDS ORDERED: Albuterol/Ipratropium NEB.SOL* Albuterol 2.5 MG/Ipratropium 0.5 MG 3 ML ONE (12:46)
[2019-05-26] MEDS ORDERED: Heparin DRIP 25,000 UNITS(*) 25,000 UNITS/500 ML BAG IV SCH (14:30)
[2019-05-26] MEDS ORDERED: Heparin VIAL(*) 5000 UNITS/ML VIAL (FIVE THOUSAND) IV PRN (14:46)
[2019-05-26 15:15] LABS: Troponin I 2.11 ng/mL (<0.03)
[2019-05-26] MEDS ORDERED: nitroGLYCERIN DRIP* 25,000 MCG/250 ML BTL IV ONE (15:19)
[2019-05-26 16:04] VITALS: BP 143/71
== END 2019-05-26 16:45 | disposition short-term general hospital (02) ==
LOC: ED 11:26
DX: I21.4 Non-ST elevation (NSTEMI) myocardial infarction (principal); R06.02 Shortness of breath; R07.9 Chest pain, unspecified; J45.909 Unspecified asthma, uncomplicated; I10 Essential (primary) hypertension; I25.10 Atherosclerotic heart disease of native coronary artery without angina pectoris; I25.2 Old myocardial infarction; K21.9 Gastro-esophageal reflux disease without esophagitis; Z87.891 Personal history of nicotine dependence; Z79.899 Other long term (current) drug therapy; Z79.82 Long term (current) use of aspirin; R94.31 Abnormal electrocardiogram [ECG] [EKG]; Z88.1 Allergy status to other antibiotic agents; Z88.8 Allergy status to other drugs, medicaments and biological substances
CPT/HCPCS: 36415; 71045; 71275; 80053; 84484; 85025; 85730; 93005; 96361; 96374; 96375; 99285; A9270-GY; J1644; J2270; Q9967

== ENCOUNTER 2019-10-09 00:46 | Inpatient (IN) ==
[2019-10-09] MEDS ORDERED: Dexamethasone IV 4 MG/ML VIAL 1 ml VIAL IV SLOW PU ONE (00:57)
[2019-10-09] MEDS ORDERED: Albuterol 0.5% CONC NEB.SOL 5 mg/ml 20 ml BOT INH ONE (00:57)
[2019-10-09] MEDS ORDERED: Magnesium Sulfate 2 gm BAG 2 GM/50 ML BAG IVPB ONE (00:59)
[2019-10-09 01:24] LABS: ABS Basophils 0.2 10^3/ul (0-0.2); ABS Eosinophils 0.3 10^3/ul (0-0.6); ABS Lymphocytes 4.1 10^3/ul (1.0-4.8); ABS Monocytes 0.9 10^3/ul (0-0.8); ABS Neutrophils 17.1 10^3/ul (1.5-7.7); Eosinophil % 1.2 %; Hematocrit 42 % (35-47); Hemoglobin 13.6 g/dL (12.0-16.0); Lymphocyte % 18.3 %; Mean Corpuscular HGB Conc 32 g/dL (31-36); Mean Corpuscular Hemoglobin 25 pg (27-31); Mean Corpuscular Volume 78 fL (80-97); Mean Platelet Volume 10.1 fL (7.4-10.4); Nucleated Red Blood Cells % 0.1; Platelet Count 400 10^3/uL (150-450); Red Blood Count 5.43 10^6 /uL (3.70-4.87); Red Cell Distribution Width 19 % (10-15); White Blood Count 22.6 10^3/uL (3.5-10.8)
[2019-10-09] MEDS ORDERED: Nitro 2% OINT (Nitroglycerin) 1 INCH/PAK TOPICAL ONE (01:42)
[2019-10-09] MEDS ORDERED: Furosemide 20 mg/2 ml IV VIAL IV SLOW PU ONE (01:44)
[2019-10-09 01:47] LABS: ALT 35 U/L (7-52); AST 42 U/L (13-39); Albumin/Globulin Ratio 1.3 (1-3); Alkaline Phosphatase 83 U/L (34-104); Anion Gap 18 mmol/L (2-11); Blood Urea Nitrogen 31 mg/dL (6-24); CO2 Carbon Dioxide 16 mmol/L (22-32); Calcium 8.7 mg/dL (8.6-10.3); Chloride 104 mmol/L (101-111); EGFR African American 37.3 (>60); EGFR Non-African American 30.8 (>60); Globulin 3.2 g/dL (2-4); Glucose 275 mg/dL (70-100); Potassium 4.9 mmol/L (3.5-5.0); Sodium 138 mmol/L (135-145); Total Protein 7.2 g/dL (6.4-8.9)
[2019-10-09 01:50] LABS: Troponin I 0.34 ng/mL (<0.03)
[2019-10-09 03:29] LABS: Urine Appearance Clear; Urine Bilirubin Negative (Negative); Urine Blood 2+ (Negative); Urine Color Colorless; Urine Glucose Negative (Negative); Urine Ketones Negative (Negative); Urine Nitrite Negative (Negative); Urine Protein Negative (Negative); Urine Specific Gravity 1.004 (1.010-1.030); Urine Urobilinogen Negative (Negative)
[2019-10-09 03:37] LABS: Urine Bacteria Absent (Absent); Urine Red Blood Cell Trace(0-2/hpf) (Absent); Urine Squamous Epithelial Cell Present (Absent); Urine White Blood Cell Trace(0-5/hpf) (Absent)
[2019-10-09] MEDS ORDERED: Albuterol 2.5mg/3 ml (0.083%) NEB.SOLN INH PRN (03:38)
[2019-10-09 04:34] LABS: Troponin I 12.11 ng/mL (<0.03)
[2019-10-09] MEDS: Heparin DRIP 25,000 UNITS BAG 25,000 UNITS/500 ML BAG IV SCH (05:19)
[2019-10-09] MEDS ORDERED: Heparin 5000 UNITS/ML 1 mL VIAL SUBCUT SCH (06:00)
[2019-10-09 07:54] LABS: Hematocrit 41 % (35-47); Hemoglobin 12.9 g/dL (12.0-16.0); Mean Corpuscular HGB Conc 32 g/dL (31-36); Mean Corpuscular Hemoglobin 24 pg (27-31); Mean Corpuscular Volume 77 fL (80-97); Mean Platelet Volume 9.6 fL (7.4-10.4); Platelet Count 247 10^3/uL (150-450); Red Blood Count 5.33 10^6 /uL (3.70-4.87); Red Cell Distribution Width 19 % (10-15); White Blood Count 18.2 10^3/uL (3.5-10.8)
[2019-10-09 08:19] LABS: Anion Gap 10 mmol/L (2-11); BUN/Creatinine Ratio 23.7 (8-20); Blood Urea Nitrogen 32 mg/dL (6-24); CO2 Carbon Dioxide 22 mmol/L (22-32); Calcium 8.3 mg/dL (8.6-10.3); Chloride 107 mmol/L (101-111); EGFR African American 49.3 (>60); EGFR Non-African American 40.7 (>60); Glucose 151 mg/dL (70-100); Potassium 4.1 mmol/L (3.5-5.0); Sodium 139 mmol/L (135-145)
[2019-10-09 08:26] LABS: Troponin I 34.15 ng/mL (<0.03)
[2019-10-09] MEDS: SPIRIVA Respimat (tiotropium) 2.5 mcg/inh Inhaler INH SCH (09:18)
[2019-10-09] MEDS: Mometasone/Formoter 200/5 MDI INH SCH ×2 (09:18→21:13)
[2019-10-09] MEDS: Metoprolol Succinate XL 200 mg TAB PO SCH (09:23)
[2019-10-09] MEDS: Isosorbide Mononit ER 30mg TAB PO SCH (09:23)
[2019-10-09] MEDS: Aspirin EC 81 mg TAB.EC (enteric coated) PO SCH (09:23)
[2019-10-10] MEDS: Heparin DRIP 25,000 UNITS BAG 25,000 UNITS/500 ML BAG IV SCH (02:08)
[2019-10-10 05:00] LABS: ABS Monocytes 0.7 10^3/ul (0-0.8); ABS Neutrophils 14.3 10^3/ul (1.5-7.7); Hematocrit 38 % (35-47); Hemoglobin 12.1 g/dL (12.0-16.0); Lymphocyte % 6.4 %; Mean Corpuscular HGB Conc 32 g/dL (31-36); Mean Corpuscular Hemoglobin 24 pg (27-31); Mean Corpuscular Volume 76 fL (80-97); Mean Platelet Volume 9.6 fL (7.4-10.4); Platelet Count 262 10^3/uL (150-450); Red Blood Count 5.05 10^6 /uL (3.70-4.87); Red Cell Distribution Width 19 % (10-15)
[2019-10-10 05:21] LABS: ALT 47 U/L (7-52); AST 88 U/L (13-39); Albumin 3.5 g/dL (3.2-5.2); Albumin/Globulin Ratio 1.3 (1-3); Alkaline Phosphatase 53 U/L (34-104); Anion Gap 5 mmol/L (2-11); Blood Urea Nitrogen 34 mg/dL (6-24); CO2 Carbon Dioxide 24 mmol/L (22-32); Calcium 8.8 mg/dL (8.6-10.3); Chloride 107 mmol/L (101-111); EGFR African American 69.7 (>60); EGFR Non-African American 57.6 (>60); Globulin 2.7 g/dL (2-4); Glucose 125 mg/dL (70-100); Magnesium 2.4 mg/dL (1.9-2.7); Potassium 4.5 mmol/L (3.5-5.0); Sodium 136 mmol/L (135-145); Total Protein 6.2 g/dL (6.4-8.9)
[2019-10-10] MEDS ORDERED: Perflutren Lipid Microsphere 3 ML VIAL ONE (07:30)
[2019-10-10] MEDS: Mometasone/Formoter 200/5 MDI INH SCH ×2 (08:17→21:00)
[2019-10-10] MEDS: SPIRIVA Respimat (tiotropium) 2.5 mcg/inh Inhaler INH SCH (08:17)
[2019-10-10] MEDS: Isosorbide Mononit ER 30mg TAB PO SCH (09:16)
[2019-10-10] MEDS: Aspirin EC 81 mg TAB.EC (enteric coated) PO SCH (09:16)
[2019-10-10] MEDS: Metoprolol Succinate XL 200 mg TAB PO SCH (09:48)
[2019-10-10 11:17] LABS: Troponin I 20.52 ng/mL (<0.03)
[2019-10-10] MEDS ORDERED: Enoxaparin 40 MG/0.4 ML SYR SUBCUT SCH (18:00)
[2019-10-11] MEDS: Mometasone/Formoter 200/5 MDI INH SCH (08:12)
[2019-10-11] MEDS: SPIRIVA Respimat (tiotropium) 2.5 mcg/inh Inhaler INH SCH (08:12)
[2019-10-11 08:26] LABS: Hematocrit 31 % (35-47); Hemoglobin 10.1 g/dL (12.0-16.0); Mean Corpuscular HGB Conc 32 g/dL (31-36); Mean Corpuscular Hemoglobin 25 pg (27-31); Mean Corpuscular Volume 77 fL (80-97); Red Blood Count 4.06 10^6 /uL (3.70-4.87); Red Cell Distribution Width 19 % (10-15); White Blood Count 8.2 10^3/uL (3.5-10.8)
[2019-10-11 08:34] LABS: EGFR African American 72.1 (>60); EGFR Non-African American 59.6 (>60)
[2019-10-11] MEDS: Isosorbide Mononit ER 30mg TAB PO SCH (08:42)
[2019-10-11 08:46] LABS: Mean Platelet Volume 10.7 fL (7.4-10.4); Platelet Count 95 10^3/uL (150-450)
[2019-10-11] MEDS: Aspirin EC 81 mg TAB.EC (enteric coated) PO SCH (08:55)
[2019-10-11 15:20] VITALS: BP 111/55
== END 2019-10-11 15:40 | disposition short-term general hospital (02) | DRG 280 ==
LOC: ED 00:46 → ICU 03:11 → MEDTELE 17:52
PROVIDERS: ADMIT Hospitalist; ATTEND Internal Medicine